=== PATIENT | female | born 1940 | race Caucasian/White ===

== ENCOUNTER 2016-07-09 13:33 | Observation (INO) | payer MEDICARE, OTHER ==
--- NOTE | 2016-07-09 14:09 | ERNOTE ---
Dyspnea - Date Date of Service: 07/09/16 - General Presenting Symptoms: shortness of breath Time Seen by Provider: 07/09/16 14:03 Source: patient, RN notes reviewed, old records Exam Limitations: no limitations - Immun/Allergies/Home Medications Immunizations: IMMUNIZATION HX Immunizations Up to Date No History of Influenza Vaccine Yes Hx Pneumococcal Vaccination Yes Allergies/Adverse Reactions: Allergies Penicillins Allergy (Intermediate, Verified 03/04/16 11:37) HIVES, THROAT SWELLS ezetimibe [From Zetia] Adverse Reaction (Mild, Verified 03/04/16 11:37) FEELS TINGLY ALL OVER, SIDE PAIN glipizide [From Glucotrol] Adverse Reaction (Mild, Verified 03/04/16 11:37) HAIR FELL OUT indomethacin [From Indocin] Adverse Reaction (Mild, Verified 03/04/16 11:37) GI BLEED indomethacin sodium [From Indocin] Adverse Reaction (Mild, Verified 03/04/16 11: 37) GI BLEED Miworjm-Ukz-Omu Reductase Inhibitor Adverse Reaction (Mild, Verified 03/04/16 11 :37) MUSCLE ACHES metformin HCl [From Glucophage] Adverse Reaction (Verified 03/04/16 11:37) JUST DOESNT WORK Home Medications: HOME MEDICATIONS Atenolol [Tenormin] 25 mg PO DAILY 03/13/14 [Last Taken 07/09/16 10:00] Gemfibrozil [Lopid] 600 mg PO BID 03/13/14 [Last Taken 07/09/16 10:00] Insul NPH Hu Rec/Ins Rg Hu Rec [Novolin 70/30] 20 units SQ AC 03/13/14 [Last Taken 07/09/16 09:00] Levothyroxine Sodium [Unithroid] 125 mcg PO DAILY 03/13/14 [Last Taken 07/09/16 10:00] Potassium Chloride [Klor-Con M20] 20 meq PO DAILY 03/13/14 [Last Taken 07/08/16 17:00] Allopurinol [Zyloprim] 200 mg PO DAILY #60 tablet 12/27/14 [Last Taken 07/09/16 10:00] Blood Sugar Diagnostic, Drum [Accu-Chek Compact] 1 each MC TID 06/18/15 [Last Taken Unknown] Cholecalciferol (Vitamin D3) [Vitamin D] 800 unit PO DAILY 06/18/15 [Last Taken 07/09/16 10:00] Fluticasone Propionate [Flonase] 1 spray NS BID PRN 06/18/15 [Last Taken Unknown ] Furosemide [Lasix] 40 mg PO BID 06/18/15 [Last Taken 07/09/16 10:00] Lisinopril [Zestril] 2.5 mg PO DAILY 06/18/15 [Last Taken 07/09/16 10:00] Multivitamins [Multivitamin Dhara] 1 cap PO DAILY 06/18/15 [Last Taken 10:00] Nitroglycerin [Nitrostat] 0.4 mg SL Q5MIN PRN 06/18/15 [Last Taken Unknown] Warfarin Sodium 3 mg PO DAILY 07/09/16 [Last Taken 07/06/16 09:00] Warfarin Sodium [Coumadin] 4 mg PO DAILY 07/09/16 [Last Taken 07/09/16 10:00] - History of Present Illness Narrative: Yannick is a 75 year old female patient of Dr. Perkins who presents from home to the ED for increasing shortness of breath. She has been more dyspneic for the past 6 to 8 weeks, but this seemed significantly worse today. She reports that she has gained weight and feels like she has more swelling in her legs. She also reports that her activity tolerance has decreased as well, as she becomes very short of breath when ambulating short distances. She was seen in [facility] cardiology 2 weeks ago. At that time, she was able to maintain an SpO2 of 96% with ambulation. Today she is only 91 to 93% at rest. She does report a cough, but reports that it is mild and infrequent. She attributes this to seasonal allergies. Her weight at her cardiology appointment on 06/24/16 was 207. Today she is 219. 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 Denies: fever/chills , chest pain/discomfort, palpitations, wheezing, leg/calf pain, dizziness, lightheadedness, weakness, anxiety Prior Treatment: Reports: recently seen, treated by physician, previous episodes. Denies: currently on antibiotics Review of Systems - Review of Systems Constitutional: Present: fatigue, decreased activity level. Absent: recent illness, fever EYE: Present: no symptoms reported ENT: Present: nasal drainage. Absent: ear pain, nose congestion, sore throat Respiratory: Present: shortness of breath, orthopnea. Absent: wheezing Cardiology: Present: edema. Absent: chest pain, palpitations, claudication Gastrointestinal/Abdominal: Absent: nausea, vomiting, diarrhea, abdominal pain Genitourinary: Present: no symptoms reported Musculoskeletal: Present: no symptoms reported Skin: Absent: rash, lesions, change in color Neurological: Absent: headache, dizziness/light-headedness Endocrine: Present: unexplained weight gain Hematologic/Lymphatic: Present: easy bruising, easy bleeding Psych: Present: no symptoms reported - Patient's Past Medical History Patient History - Medical: Arthritis, Cataracts, Diabetes Type 2 Insulin Dependent, GERD, Hypothyroidism, UTI'S Patient History - Cardiac/Respiratory: Atrial Fibrillation, Bronchitis, Cardiomyopathy, CHF - Systolic, Hypertension, Myocardial Infarction, Pneumonia Patient History - Cancer: No Hx of Cancer Patient History - Surgical Procedures: Cataracts, Cholecystectomy, Hysterectomy , Pacemaker - with defib, Other - AV node ablation Patient History - Other: None LMP (females 10-50): Menopausal - Family History Mother Family History - Medical: No pertinent hx Family History - Cardiac/Respiratory: Hypertension Family History - Cancer: No pertinent family hx - Social History Living Situations: spouse Abuse History: No History of abuse Psych History: No pertinent hx Smoking Status: Former smoker Have you smoked in the past 12 months: No Do you dip or chew tobacco: No Alcohol Use: none Drug Use: none - Immunizations Immunizations Up to Date: No Hx Pneumococcal Vaccination: Yes History of Influenza Vaccine: Yes Physical Exam - Physical Exam General Appearance: Present: alert, mild distress, obese Eye Exam: Normal inspection: bilateral Ears, Nose, Throat: Present: normal ENT inspection, normal pharynx. Absent: nasal congestion, sinus pain/drainage, pharyngeal erythema Neck: Present: normal inspection, nontender, supple Respiratory: Present: accessory muscle use, decreased breath sounds, other - difficulty speaking in complete sentences . Absent: crackles, rales, wheezing Cardiovascular/Chest: Present: regular rate, rhythm, no murmur, normal peripheral pulses Peripheral Pulses: N=norm/S=strong/W=weak/B=bound/A=absent: Dorsalis-pedis (R): Normal, Dorsalis-pedis (L): Normal Gastrointestinal/Abdominal: Present: nontender, soft Extremity Exam: Present: non-tender, normal range of motion, pedal edema Neurological Exam: Present: alert, oriented, normal mood/affect, no motor/ sensory deficits Skin Exam: Present: warm/dry, pallor ED Progress - Results and Orders Patient's Lab Results:: I have reviewed the patient's lab results. - Vital Signs Patient's Vital Signs:: I have reviewed the patient's vital signs. Vital Signs: Vital Signs 07/09/16 13:35 Temperature 35.8 C L Pulse Rate 83 Respiratory 22 H Rate Blood Pressure 137/89 O2 Sat by Pulse 97 Oximetry - EKG EKG: other - Paced rhythm EKG read: Reviewed by me - X-Ray X-Ray #1 X-Ray: chest Interpretation: Reviewed by me X-ray Comments: Technique: PA and lateral views. Comparison: 03/04/2016 Findings: There is chronic cardiomegaly. There is a left cardiac pacemaker. Vascularity is within normal limits. There are no focal infiltrates or effusions. There are granulomatous and atherosclerotic calcifications. Compression fracture in the thoracic spine is unchanged. There are mild degenerative changes. IMPRESSION: STABLE CHEST. CHRONIC CARDIOMEGALY. GRANULOMATOUS DISEASE. NO ACUTE CARDIOPULMONARY DISEASE OTHERWISE IDENTIFIED. Electronically signed by Alfa Jacobsen M.D.. - Progress/Reassessment Chief Complaint: Dyspnea Progress:: Unchanged Progress Note-Subjective: 07/09/16 15:34 Patient's CHF appears to be worsening given her 12 pound weight gain in the past 2 weeks and worsening dyspnea. Her BNP was 1929 on 05/12/16. Today she is at 4104. Her SpO2 has been mostly in the low 90's on room air. She desaturated to 86% after ambulation. Her renal function has also worsened. Her creatinine was 1.47 on 06/30 and is 1.96 today. Her chest xray is stable. Dr. Guadalupe contacted regarding admission. Plan - Plan Plan: Spoke with Dr. Guadalupe - will admit to [facility] status for diuresis and monitoring. Departure Clinical Impression: Acute on chronic systolic (congestive) heart failure, Acute on chronic renal failure - Departure Disposition: [facility] Condition: Fair
--- OUTSIDE RECORDS SUMMARY | 2016-07-09 14:14 | XMS REPORT | Continuity of Care Document ---
:1940 Author Organization [facility] ([facility]) Address [address] [place] [address] Phone [phone] Care Team Providers Name Role Phone Ericka Perkins Primary Care Provider [phone] Source Comments This disclosure is being made pursuant to the Care Everywhere program, applicable federal and state laws, and may not contain all informaitonavailable regarding this patient.[facility] ([facility]) Active Allergies and Adverse Reactions Allergen Noted Date Severity Reactions Comments Indomethacin 10/16/2014 Gastrointestinal bleed Penicillin G Urticaria (Hives) Ranitidine Hcl 04/29/2016 Pruritus Current Medications Prescription Sig. Disp. Refills Start End Status Date Date furosemide (LASIX) Take 40 mg by Active 80 mg tablet mouth 2 times 1 daily. take 1 Tablet (40MG) by oral route every day gemfibrozil (LOPID) take 1 tablet Active 600 mg tablet (600MG) by ORAL 9 route every day 30 minutes before morning and evening meal levothyroxine 175 175 mcg. take 1 Active mcg tablet tablet (175MCG) 0 by ORAL route every day potassium chloride take 1 tablet Active 20 mEq tablet (20MEQ) by ORAL 9 route every day with food warfarin (COUMADIN) as directed by Active 1 mg tablet Gregorio 2 insulin aspart mix Inject 20 Units Active (NovoLOG 70-30) 100 subcutaneously 2 unit/mL injection times daily with vial meals. multivitamin tablet Take 1 tablet by Active mouth daily. acetaminophen 650 mg Take 1,300 mg by Active CR tablet mouth daily. DEXTRAN Instill onto both Active 70/HYPROMELLOSE eyes as needed. (ARTIFICIAL TEARS (PF) OPHTH) TETRAHYDROZOLINE Instill onto both Active HCL/ZN SULF (EYE eyes as needed. DROPS ALLERGY RELIEF OPHTH) naphazoline-pheniram Instill 1 Drop Active ine (OPCON-A) onto both eyes as 0.38982-2.315 % needed. ophthalmic solution allopurinol 100 mg Take 200 mg by Active tablet mouth daily. cholecalciferol Take 2,000 Units Active (VITAMIN D3) 1,000 by mouth daily. unit capsule carvedilol 3.125 mg Take 1 tablet 60 tablet 11 Active tablet (3.125 mg total) 7 by mouth 2 times daily with meals. This Coreg replaces her Atenolol. sacubitril-valsartan Take 1 tablet by 60 tablet 4 Active (ENTRESTO) 24-26 mg mouth 2 times 7 per tablet daily. lisinopril 2.5 mg Take 1 tablet (2.5 30 tablet 5 Discontinued tablet mg total) by mouth 5 017 daily Active Problems Problem Noted Date Cardiomyopathy 10/16/2014 Chronic atrial fibrillation 10/16/2014 Coronary artery disease 10/16/2014 Diabetes 10/16/2014 GI bleed 10/16/2014 Overview: While taking Indocin. Gout 10/16/2014 Hypertension 10/16/2014 Myocardial infarction 10/16/2014 Polymyalgia rheumatica 10/16/2014 Shingles 10/16/2014 Congestive heart failure, unspecified 10/16/2014 Complete AV block, secondary to AV node ablation 10/16/2014 ICD (implantable cardioverter-defibrillator), biventricular, in situ, 2013 Medtronic, placed 05/22/15 Thyrotoxicosis without mention of goiter or other cause, without mention 07/15 of thyrotoxic crisis or storm Most Recent Encounters Date Type Specialty Providers Description 07/08/2016 Telephone Heart and Vascular Freda Oliva, Chief Comp: Shortness ELEMENTARY SCHOOL DIRECTOR of Breath 07/07/2016 Refill Heart and Vascular Bozena Vazquez, Chief Comp: Medication Problem 06/30/2016 Telephone Heart and Vascular Radha Stewart, Chief Comp: editing internship Problem 06/25/2016 Telephone Donna Florence, Chief Comp: Intake [facility] 06/25/2016 Telephone Heart and Vascular Karena Greco, Chief Comp: [facility] Medication Question 06/25/2016 Pharmacy Visit 06/24/2016 Office Visit Heart and Vascular Bozena Vazquez, Dx: Systolic heart MD failure, unspecified heart failure chronicity 06/24/2016 Telephone Gracy Hightower Chief Comp: Wilbert Gomez CPhT Prior Authorization 06/19/2016 Telephone Heart and Vascular Margaret Rogers, Chief Comp: RN Coordination Of Care 04/29/2016 Office Visit Heart and Vascular Bozena Vazquez, Dx: Congestive heart MD failure, unspecified 04/21/2016 Orders/Notes Heart and Vascular Bozena Vazquez, Dx: Systolic heart MD failure, unspecified heart failure chronicity (Primary Dx) 04/15/2016 Office Visit Ophthalmology - Dilan Akhtar, Dx: Ptosis, Specialty MD mechanical, bilateral (Primary Dx) Immunizations Name Dates Previously Given Next Due Influenza, unspecified 12/23/2006 Social History Tobacco Use Types Packs/Day Years Used Date Former Smoker Cigarettes 1 25 Quit: 03/16/1983 Smokeless Tobacco: Never Used Alcohol Use Drinks/Week oz/Week Comments No 0 Standard drinks or equivalent 0.0 Last Filed Vital Signs Vital Sign Reading Time Taken Blood Pressure 124/70 06/24/2016 12:51 PM CDT Pulse 95 06/24/2016 12:51 PM CDT Temperature 36.2 C (97.2 F) 04/29/2016 1:36 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 Respiratory Rate 24 06/24/2016 12:51 PM CDT Height 1.753 m (5' 9.02") 04/29/2016 1:36 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 Weight 94.167 kg (207 lb 9.6 oz) 06/24/2016 12:48 PM CDT Body Mass Index 30.64 06/24/2016 12:48 PM CDT Oxygen Saturation 98% 06/24/2016 12:51 PM CDT Plan of Care Date Type Specialty Providers Description 08/26/2016 Appointment Heart and Vascular Bozena Vazquez MD Chief Comp: Patient [address] [place] [address] Visit [phone] (Fax) 09/03/2016 Appointment Heart and Vascular rFeda Oliva ARNP Chief Comp: Patient [address] [place] [address] Visit [phone] (Fax) Health Maintenance Due Date Last Done Comments Hepatitis B Vaccine (1 of 3 - Primary Series) 1940 Tdap Vaccine 12/04/1951 DIABETIC: Cholesterol 1958 Diabetic: Hdl 1958 DIABETIC: Hemoglobin A1C 1958 Diabetic: Ldl 1958 DIABETIC: Microalbumin 1958 DIABETIC: Triglycerides 1958 Td Vaccine 1958 Mammogram 1980 Colonoscopy 1990 Zoster Vaccine 2000 Osteoporosis Screening (DXA Bone Density) 2005 Pneumococcal Vaccine (1 of 2 - PCV13) 2005 DIABETIC: Foot Exam 10/16/2014 DIABETIC: Retinal Eye Exam 10/16/2014 Influenza Vaccine: Seasonal (Season Ended) 2016 12/23/2006 Results from Last 3 Months Not on file
[2016-07-09 14:24] LABS: Hematocrit 48.6 % (37.0-47.0); Hemoglobin 16.3 gm/dL (12.5-16.0); Mean Cell Volume 100.6 fl (78-100); Mean Corpuscular Hemoglobin 33.7 pg (27-31); Mean Corpuscular Hgb Conc 33.5 g/dl (32-36); Mean Platelet Volume 10.4 fl (6.0-9.5); Neutrophil # 6.4 K/mm3 (1.3-6.0); Neutrophil % 78.1 % (42-75.0); Platelet Count 220 K/mm3 (150-450); Red Blood Count 4.83 M/mm3 (4.2-5.4); Red Cell Distribution Width 14.8 % (11.5-14.0); White Blood Count 8.2 K/mm3 (4.0-10.5)
[2016-07-09 14:33] LABS: Prothrombin Time (Patient) 37.3 Seconds (9.4-11.4)
[2016-07-09 14:34] LABS: INR 3.59 INR (0.90-1.10)
[2016-07-09 14:41] LABS: Troponin I Less than 0.017 ng/ml (0.00-0.10)
[2016-07-09 14:45] LABS: ALT 22 U/L (19-67); AST 22 U/L (0-48); Alkaline Phosphatase * 163 U/L (50-170); Anion Gap 10.3 mmol/L (6.8-13.8); BNP * 4104 pg/mL (5-550); BUN/Creatinine Ratio 30.1 (9.0-21.6); Bilirubin, Total 0.7 mg/dL (0.0-1.1); Blood Urea Nitrogen 59 mg/dL (3-23); Ca. Corrected For Albumin 10.1 mg/dL (8.4-10.2); Calcium * 9.6 mg/dL (7.9-10.9); Carbon Dioxide 34.1 mmol/L (24-32.6); Chloride 102 mmol/L (97-106); Glucose * 194 mg/dL (70-110); Potassium 4.4 mmol/L (3.4-4.6); Sodium 142 mmol/L (132-142)
--- OUTSIDE RECORDS SUMMARY | 2016-07-09 15:57 | XMS REPORT | Continuity of Care Document ---
:1940 Author Organization [facility] ([facility]) Address [address] [place] [address] Phone [phone] Care Team Providers Name Role Phone Ericka Perkins Primary Care Provider [phone] Source Comments This disclosure is being made pursuant to the Care Everywhere program, applicable federal and state laws, and may not contain all informaitonavailable regarding this patient.[facility] ([facility]) Active Allergies and Adverse Reactions Allergen Noted [...] Active ine (OPCON-A) onto both eyes as 0.75971-3.315 % needed. 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 Respiratory Rate 24 06/24/2016 12:51 PM CDT Height 1.753 m (5' 9.02") 04/29/2016 1:36 PM NETWORK SECURITY ARCHITECT Weight 94.167 kg (207 lb 9.6 oz) 06/24/2016 12:48 PM CDT Body Mass Index 30.64 06/24/2016 12:48 PM CDT Oxygen Saturation 98% 06/24/2016 12:51 PM CDT Plan of Care Date Type Specialty Providers Description 08/26/2016 Appointment Heart and Vascular Bozena Vazquez MD Chief Comp: Patient [address] [place] [address] Visit [phone] (Fax) 09/03/2016 Appointment Heart and Vascular Freda Oliva ARNP Chief Comp: Patient [address] [place] [address] Visit [phone] (Fax) Health Maintenance Due Date Last Done [...]
[2016-07-09] MEDS: INSUL NPH HU REC/INS RG HU REC 100 UNITS/ML VIAL SC SCH (17:54)
[2016-07-09] MEDS: BUMETANIDE 0.25 MG/ML VIAL IV SCH (17:55)
--- NOTE | 2016-07-09 17:57 | HP ---
Chief Complaint - Chief Complaint Date of Service: 07/09/16 Time of Service: 17:56 Chief Complaint: Shortness of breath, weight gain, edema History of Present Illness: Yannick is a 75 yo female with 12lb weight game in the last 2 weeks, shortness of breath, and lower extremity edema. She denies any recent change in diet, activity, or medications. She saw her insurance consultant 2 weeks ago. She presented to the ER today which evaluation revealed elevated BNP from baseline and pulmonary congestion. - Patient's Past Medical History Patient History - Medical: Arthritis, Cataracts, Diabetes Type 2 Insulin Dependent, GERD, Hypothyroidism, UTI'S Patient History - Cardiac/Respiratory: Atrial Fibrillation, Bronchitis, Cardiomyopathy, CHF, Hypertension, Myocardial Infarction, Pneumonia Patient History - Cancer: No Hx of Cancer Patient History - Surgical Procedures: Cataracts, Cholecystectomy, Hysterectomy , Pacemaker, Other Patient History - Other: None LMP (females 10-50): Menopausal - Family History Mother Family History - Medical: No pertinent hx Family History - Cardiac/Respiratory: Hypertension Family History - Cancer: No pertinent family hx - Social History Living Situations: spouse Abuse History: No History of abuse Psych History: No pertinent hx Smoking Status: Former smoker Have you smoked in the past 12 months: No Do you dip or chew tobacco: No Alcohol Use: none Drug Use: none - Immunizations Immunizations Up to Date: No Hx Pneumococcal Vaccination: Yes History of Influenza Vaccine: Yes Review Of Systems (GEN) - Review of Systems Generalized/Overall Review: Present: Weakness. Absent: Chills, Fever EENTM: Present: No Symptoms Reported Respiratory: Present: Cough, Shortness of Breath Cardiac: Present: Edema Abdominal: Present: No Symptoms Reported Genitourinary: Present: No Symptoms Reported Musculoskeletal: Present: No Symptoms Reported Neurological: Present: No Symptoms Reported Skin: Present: No Symptoms Reported Endocrine: Present: No Symptoms Reported Immunizations: IMMUNIZATION HX Immunizations Up to Date No History of Influenza Vaccine Yes Hx Pneumococcal Vaccination Yes Allergies/Adverse Reactions: Allergies Allergy/AdvReac Type Severity Reaction Status Date / Time Penicillins Allergy Intermediate HIVES, Verified 03/04/16 11:37 THROAT SWELLS ezetimibe [From Zetia] AdvReac Mild FEELS Verified 03/04/16 11:37 TINGLY ALL OVER, SIDE PAIN glipizide [From Glucotrol] AdvReac Mild HAIR FELL Verified 03/04/16 11:37 OUT indomethacin [From Indocin] AdvReac Mild GI BLEED Verified 03/04/16 11:37 indomethacin sodium AdvReac Mild GI BLEED Verified 03/04/16 11:37 [From Indocin] Ivrtwom-Nmz-Fjg Reductase AdvReac Mild MUSCLE Verified 03/04/16 11:37 Inhibitor ACHES metformin HCl AdvReac JUST Verified 03/04/16 11:37 [From Glucophage] DOESNT WORK Home Medications: HOME MEDICATIONS Atenolol [Tenormin] 25 mg PO DAILY 03/13/14 [Last Taken 07/09/16 10:00] Gemfibrozil [Lopid] 600 mg PO BID 03/13/14 [Last Taken 07/09/16 10:00] Insul NPH Hu Rec/Ins Rg Hu Rec [Novolin 70/30] 20 units SQ AC 03/13/14 [Last Taken 07/09/16 09:00] Levothyroxine Sodium [Unithroid] 125 mcg PO DAILY 03/13/14 [Last Taken 07/09/16 10:00] Potassium Chloride [Klor-Con M20] 20 meq PO DAILY 03/13/14 [Last Taken 07/08/16 17:00] Allopurinol [Zyloprim] 200 mg PO DAILY #60 tablet 12/27/14 [Last Taken 07/09/16 10:00] Blood Sugar Diagnostic, Drum [Accu-Chek Compact] 1 each MC TID 06/18/15 [Last Taken Unknown] Cholecalciferol (Vitamin D3) [Vitamin D3] 800 unit PO DAILY 06/18/15 [Last Taken 07/09/16 10:00] Fluticasone Propionate [Flonase] 1 spray NS BID PRN 06/18/15 [Last Taken Unknown ] Lisinopril [Zestril] 2.5 mg PO DAILY 06/18/15 [Last Taken 07/09/16 10:00] Multivitamins [Multivitamin Dhara] 1 cap PO DAILY 06/18/15 [Last Taken 10:00] Nitroglycerin [Nitrostat] 0.4 mg SL Q5MIN PRN 06/18/15 [Last Taken Unknown] Warfarin Sodium 3 mg PO DAILY 07/09/16 [Last Taken 07/06/16 09:00] Warfarin Sodium [Coumadin] 4 mg PO DAILY 07/09/16 [Last Taken 07/09/16 10:00] Bumetanide 1 mg PO BID #60 tablet 07/10/16 [Last Taken Unknown] Exam - Exam Vital Signs: Vital Signs - Last Taken Temp 36.4 C L 07/09/16 16:07 Pulse 83 07/09/16 16:07 Resp 20 07/09/16 16:07 BP 125/95 07/09/16 16:07 Pulse Ox 100 07/09/16 15:56 Constitutional: Present: Alert, Oriented x3, Cooperative ENT Exam: Present: hearing grossly normal Eye Exam: bilateral eye: normal inspection Respiratory: Present: lungs clear, normal breath sounds Cardiovascular/Chest: Present: regular rate, rhythm, no murmur, edema - 2+ Abdomen: Present: Normal bowel sounds, soft, nontender, nondistended Skin Exam: Present: normal color, warm/dry, no cyanosis Diagnostic Studies: Laboratory Results WBC 8.2 K/mm3 (4.0-10.5) 07/09/16 14:15 RBC 4.83 M/mm3 (4.2-5.4) 07/09/16 14:15 Hgb 16.3 gm/dL (12.5-16.0) H 07/09/16 14:15 Hct 48.6 % (37.0-47.0) H 07/09/16 14:15 MCV 100.6 fl (78-100) H 07/09/16 14:15 MCH 33.7 pg (27-31) H 07/09/16 14:15 MCHC 33.5 g/dl (32-36) 07/09/16 14:15 RDW 14.8 % (11.5-14.0) H 07/09/16 14:15 Plt Count 220 K/mm3 (150-450) 07/09/16 14:15 MPV 10.4 fl (6.0-9.5) H 07/09/16 14:15 Immature Gran % (Auto) 0.50 % (0.001-0.429) H 07/09/16 14:15 Immature Gran # (Auto) 0.04 K/mm3 (0.000-0.0310) H 07/09/16 14:15 Neutrophils % 78.1 % (42-75.0) H 07/09/16 14:15 Lymphocytes % 7.9 % (20-51) L 07/09/16 14:15 Monocytes % 10.8 % (0.0-9) H 07/09/16 14:15 Eosinophils % 2.1 % (0.0-3.0) 07/09/16 14:15 Basophils % 0.6 % (0.0-1.0) 07/09/16 14:15 Nucleated RBC % 0.0 k/mm3 (0-1) 07/09/16 14:15 Neutrophils # 6.4 K/mm3 (1.3-6.0) H 07/09/16 14:15 Lymphocytes # 0.7 k/mm3 (1.5-3.5) L 07/09/16 14:15 Monocytes # 0.9 k/mm3 (0.0-1.0) 07/09/16 14:15 Eosinophils # 0.2 k/mm3 (0.0-0.7) 07/09/16 14:15 Absolute Basophils 0.1 k/mm3 (0.0-0.1) 07/09/16 14:15 PT 37.3 Seconds (9.4-11.4) H 07/09/16 14:15 INR (Anticoag Therapy) 3.59 INR (0.90-1.10) H 07/09/16 14:15 Sodium 142 mmol/L (132-142) 07/09/16 14:15 Plasma Sodium 144 mmol/L (130-142) H 07/09/16 14:15 Potassium 4.4 mmol/L (3.4-4.6) 07/09/16 14:15 Chloride 102 mmol/L (97-106) 07/09/16 14:15 Carbon Dioxide 34.1 mmol/L (24-32.6) H 07/09/16 14:15 Anion Gap 10.3 mmol/L (6.8-13.8) 07/09/16 14:15 BUN 59 mg/dL (3-23) H D 07/09/16 14:15 Creatinine 1.96 mg/dL (0.4-1.4) H D 07/09/16 14:15 Est GFR (Non-Af Amer) 26 mL/min (60-130) L D 07/09/16 14:15 BUN/Creatinine Ratio 30.1 (9.0-21.6) H 07/09/16 14:15 Random Glucose 194 mg/dL (70-110) H 07/09/16 14:15 Calcium 9.6 mg/dL (7.9-10.9) 07/09/16 14:15 Calcium Adj for Albumin 10.1 mg/dL (8.4-10.2) 07/09/16 14:15 Total Bilirubin 0.7 mg/dL (0.0-1.1) 07/09/16 14:15 AST 22 U/L (0-48) 07/09/16 14:15 ALT 22 U/L (19-67) 07/09/16 14:15 Alkaline Phosphatase 163 U/L (50-170) 07/09/16 14:15 Troponin I Less than 0.017 ng/ml (0.00-0.10) 07/09/16 14:15 B-Natriuretic Peptide 4104 pg/mL (5-550) H 07/09/16 14:15 Total Protein 7.0 gm/dL (6.2-8.2) 07/09/16 14:15 Albumin 3.0 gm/dl (3.4-5.0) L 07/09/16 14:15 Assessment/Plan - Assessment/Plan (1) Acute on chronic systolic (congestive) heart failure Assessment: Yannick is a 75 yo female with acute on chronic systolic CHF based on 12lb weight gain, edema, and shortness of breath. She has no acute respiratory failure. Therefore will admit to observation, suspect 1 midnight stay for diuresis with IV lasix. Will plan to discharge to home tomorrow. Problem: Acute
[2016-07-09] MEDS: GEMFIBROZIL 600 MG TABLET PO SCH (20:40)
[2016-07-10 06:32] LABS: Prothrombin Time (Patient) 41.5 Seconds (9.4-11.4)
[2016-07-10 06:38] LABS: INR 3.99 INR (0.90-1.10)
[2016-07-10 06:42] LABS: Anion Gap 15.4 mmol/L (6.8-13.8); BUN/Creatinine Ratio 34.7 (9.0-21.6); Calcium * 9.5 mg/dL (7.9-10.9); Carbon Dioxide 25.2 mmol/L (24-32.6); Estimated Creat Clear 29.9; Potassium 3.6 mmol/L (3.4-4.6)
[2016-07-10] MEDS ORDERED: LEVOTHYROXINE SODIUM 125 MCG TABLET PO SCH (07:00)
[2016-07-10] MEDS: INSUL NPH HU REC/INS RG HU REC 100 UNITS/ML VIAL SC SCH ×2 (07:00→11:36)
[2016-07-10] MEDS: BUMETANIDE 0.25 MG/ML VIAL IV SCH (08:59)
[2016-07-10] MEDS: GEMFIBROZIL 600 MG TABLET PO SCH (08:59)
[2016-07-10] MEDS ORDERED: POTASSIUM CHLORIDE 20 MEQ TABLET.SA PO SCH (09:00)
[2016-07-10] MEDS ORDERED: MULTIVITAMINS 1 CAP CAPSULE PO SCH (09:00)
[2016-07-10] MEDS ORDERED: ALLOPURINOL 100 MG TABLET PO SCH (09:00)
[2016-07-10] MEDS ORDERED: LISINOPRIL 2.5 MG TABLET PO SCH (09:00)
[2016-07-10] MEDS ORDERED: ATENOLOL 25 MG TABLET PO SCH (09:00)
[2016-07-10] MEDS ORDERED: BUMETANIDE 0.25 MG/ML VIAL IV SCH (09:30)
[2016-07-10 11:10] VITALS: BP 148/74
[2016-07-10] MEDS ORDERED: BUMETANIDE 0.25 MG/ML VIAL IV ONE (12:49)
[2016-07-10] MEDS ORDERED: CALCIUM CARBONATE 500 MG TAB.CHEW PO PRN (15:19)
--- NOTE | 2016-07-10 16:26 | DS ---
(1) Acute on chronic systolic (congestive) heart failure Diagnosis(s): Yannick was admitted with acute on chronic systolic CHF. She was diuresed with IV lasix and had good diuresis with improved edema and shortness of breath and weight loss. She was feeling better and was discharged to home. Problem: Acute (2) Stage III chronic kidney disease Problem: Acute Procedures Performed: none Discharge Disposition: Home self care Disposition: Home self-care Condition: Good Discharge Activity: Activity as tolerated Discharge Diet: Low salt Referrals: Ericka Perkins MD [Primary Care Provider] - One Week (Repeat BMP (recheck potassium and renal function after change to bumex)) Magali Nelson [Pharmacy] - 07/16/16 10:00 am ([facility]) Additional Patient Instructions (free text): No coumadin today. Restart coumadin per usually starting tomorrow (07/11/16). Follow up with Coumadin clinic next Thursday. Prescriptions (Any new or edited meds): Bumetanide 1 mg PO BID #60 tablet Complete Home Medications List: Complete Home Medication List: Atenolol [Tenormin] 25 mg PO DAILY 03/13/14 Gemfibrozil [Lopid] 600 mg PO BID 03/13/14 Insul NPH Hu Rec/Ins Rg Hu Rec [Novolin 70/30] 20 units SQ AC 03/13/14 Levothyroxine Sodium [Unithroid] 125 mcg PO DAILY 03/13/14 Potassium Chloride [Klor-Con M20] 20 meq PO DAILY 03/13/14 Allopurinol [Zyloprim] 200 mg PO DAILY #60 tablet 12/27/14 Blood Sugar Diagnostic, Drum [Accu-Chek Compact] 1 each MC TID 06/18/15 Cholecalciferol (Vitamin D3) [Vitamin D3] 800 unit PO DAILY 06/18/15 Fluticasone Propionate [Flonase] 1 spray NS BID PRN 06/18/15 Lisinopril [Zestril] 2.5 mg PO DAILY 06/18/15 Multivitamins [Multivitamin Dhara] 1 cap PO DAILY 06/18/15 Nitroglycerin [Nitrostat] 0.4 mg SL Q5MIN PRN 06/18/15 Warfarin Sodium 3 mg PO DAILY 07/09/16 Warfarin Sodium [Coumadin] 4 mg PO DAILY 07/09/16 Bumetanide 1 mg PO BID #60 tablet 07/10/16
== END 2016-07-10 17:15 | disposition home or self-care (01) ==
LOC: ER 13:33 → MS 15:53
PROVIDERS: ADMIT Family Medicine; ATTEND Family Medicine
DX: I50.23 Acute on chronic systolic (congestive) heart failure (principal); I12.9 Hypertensive chronic kidney disease with stage 1 through stage 4 chronic kidney disease, or unspecified chronic kidney disease; N18.3 Chronic kidney disease, stage 3 (moderate); E11.9 Type 2 diabetes mellitus without complications; I48.2 Chronic atrial fibrillation; K21.9 Gastro-esophageal reflux disease without esophagitis; E03.9 Hypothyroidism, unspecified; M19.90 Unspecified osteoarthritis, unspecified site; Z87.891 Personal history of nicotine dependence
CPT/HCPCS: 36415; 71020; 80048; 80053; 83880; 84484; 85025; 85610; 93005; 96372; 96374; 99284; G0378

== ENCOUNTER 2016-08-20 14:54 | Emergency (ER) | payer MEDICARE, OTHER ==
--- OUTSIDE RECORDS SUMMARY | 2016-08-20 15:27 | XMS REPORT | Continuity of Care Document ---
:1940 Author Organization [facility] ([facility]) Address [address] [place] [address] Phone [phone] Care Team Providers Name Role Phone Ericka Perkins Primary Care Provider [phone] Source Comments This disclosure is being made pursuant to the Care Everywhere program, applicable federal and state laws, and may not contain all informaitonavailable regarding this patient.[facility] ([facility]) Active Allergies and Adverse Reactions Allergen Noted Date Severity Reactions Comments Indomethacin 10/16/2014 Gastrointestinal bleed Penicillin G Urticaria (Hives) Ranitidine Hcl 04/29/2016 Pruritus Current Medications Prescription Sig. Disp. Refills Start End Status Date Date furosemide (LASIX) Take 40 mg by Active 80 mg tablet mouth 2 times 1 daily. gemfibrozil (LOPID) take 1 tablet Active 600 mg tablet (600MG) by ORAL 9 route every day 30 minutes before morning and evening meal potassium chloride take 1 tablet Active 20 mEq tablet (20MEQ) by ORAL 9 route every day with food multivitamin tablet Take 1 tablet by Active mouth daily. acetaminophen 650 mg Take 1,300 mg by Active CR tablet mouth daily. DEXTRAN Instill onto both Active 70/HYPROMELLOSE eyes as needed. (ARTIFICIAL TEARS (PF) OPHTH) allopurinol 100 mg Take 200 mg by Active tablet mouth daily. cholecalciferol Take 2,000 Units Active (VITAMIN D3) 1,000 by mouth daily. unit capsule ALPRAZolam 0.25 mg Take 0.25 mg by 0 Active tablet mouth every 8 7 hours as needed. Taking at bedtime levothyroxine 125 Take 125 mcg by 1 Active mcg tablet mouth daily. 7 omeprazole 40 mg Take 40 mg by 5 Active enteric coated mouth daily. 7 capsule warfarin 3 mg tablet Take 3 mg by Active mouth. Sundays warfarin 4 mg tablet Take 4 mg by Active mouth. Thu-Thu metoPROLol succinate Take 1 tablet (50 30 tablet Active 50 mg XL tablet mg total) by mouth 7 daily. hydrALAZINE 10 mg Take 1 tablet (10 90 tablet Active tablet mg total) by mouth 7 every 8 hours. insulin aspart mix 30 units before 10 mL 0 Active (NovoLOG MIX 70-30) breakfast and 15 7 100 unit/mL units before injection vial supper. levothyroxine 175 175 mcg. take 1 Discontinued mcg tablet tablet (175MCG) 0 017 by ORAL route every day warfarin (COUMADIN) as directed by Discontinued 1 mg tablet Gregorio 2 017 insulin aspart mix Inject 20 Units Discontinued (NovoLOG 70-30) 100 subcutaneously 2 017 unit/mL injection times daily with vial meals. TETRAHYDROZOLINE Instill onto both Discontinued HCL/ZN SULF (EYE eyes as needed. 017 DROPS ALLERGY RELIEF OPHTH) naphazoline-pheniram Instill 1 Drop Discontinued ine (OPCON-A) onto both eyes as 017 0.09238-2.315 % needed. ophthalmic solution carvedilol 3.125 mg Take 1 tablet 60 tablet Discontinued tablet (3.125 mg total) 7 017 by mouth 2 times daily with meals. This Coreg replaces her Atenolol. atenolol 25 mg Take 25 mg by 3 Discontinued tablet mouth daily. 7 017 NOVOLIN 70/30 100 Inject 20 Units 1 Discontinued unit/mL injection subcutaneously 3 7 017 vial times daily. lisinopril 2.5 mg Take 2.5 mg by Discontinued tablet mouth daily. 017 magnesium oxide 400 Take 1 tablet (400 30 tablet Discontinued mg tablet mg total) by mouth 7 017 2 times daily. insulin aspart mix 30 units before 3 mL 1 Discontinued (NovoLOG Mix 70-30 breakfast and 15 7 017 FlexPen) 100 unit/mL units before injection pen supper. Active Problems Problem Noted Date Non-ischemic cardiomyopathy 10/16/2014 Chronic atrial fibrillation 10/16/2014 Coronary artery disease 10/16/2014 Uncontrolled type 2 diabetes mellitus with hyperglycemia 10/16/2014 GI bleed 10/16/2014 Overview: While taking Indocin. 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 other cause, without mention 07/15 of thyrotoxic crisis or storm Resolved Problems Problem Noted Date Resolved Date Acute on chronic systolic heart failure, NYHA class 3 07/29/2016 08/10/2016 Most Recent Encounters Date Type Specialty Providers Description 08/14/2016 Orders/Notes Med Hematology and Cydney, Dx: Erythrocytosis Oncology Imani Wallace DO (Primary Dx) 08/12/2016 Nurse Triage General Care Chief Vandana Comp: IP Inpatient - Adult Carmelina Shay RN Discharge Follow-up Call 08/12/2016 Telephone Heart and Vascular Xiomara Verma, Chief Comp: Follow -up RN 08/10/2016 Pharmacy Visit 07/30/2016 [facility] Marino Gomez, Chief Comp: Patient Encounter MD Reported Reason For Visit 07/29/2016 - [facility] General Care Gwen Denny MD Dx: SOB (shortness of 08/10/2016 Encounter Inpatient - Adult Priest, Maxx breath) (Primary Dx ) MD Darrel Flores Manju, MD Soufi, MD Ruby Joseph Parijat, MD Fatima, Urooj, MD 07/28/2016 Telephone Heart and Vascular Freda Oliva, Chief Comp: Shortness BATCH ATTENDANT of Breath 07/21/2016 Pharmacy Visit 07/08/2016 Telephone Heart and Vascular Freda Oliva, Chief Comp: Shortness BATCH ATTENDANT of Breath 07/07/2016 Refill Heart and Vascular Bozena Vazquez, Chief Comp: Medication Problem 06/30/2016 Telephone Heart and Vascular Radha Stewart, Chief Comp: assistant 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 Problem 06/25/2016 Telephone Donna Florence, Chief Comp: Intake [facility] 06/25/2016 Telephone Heart and Vascular Karena Greco, Chief Comp: [facility] Medication Question 06/25/2016 Pharmacy Visit 06/24/2016 Office Visit Heart and Vascular Bozena Vazquez, Dx: Systolic heart MD failure, unspecified heart failure chronicity 06/24/2016 Telephone Gracy Hightower Chief Comp: Wilbert Gomez, prosthetic assistant Prior Authorization 06/19/2016 Telephone Heart and Vascular Margaret Rogers, Chief Comp: RN Coordination Of Care Immunizations Name Dates Previously Given Next Due Influenza, unspecified 12/23/2006 Social History Tobacco Use Types Packs/Day Years Used Date Former Smoker Cigarettes 1 25 Quit: 03/16/1983 Smokeless Tobacco: Never Used Alcohol Use Drinks/Week oz/Week Comments No 0 Standard drinks or equivalent 0.0 Last Filed Vital Signs Vital Sign Reading Time Taken Blood Pressure 112/61 08/10/2016 9:11 AM CDT Pulse 75 08/09/2016 11:47 PM CDT Temperature 37.3 C (99.1 F) 08/10/2016 9:11 AM CDT Respiratory Rate 16 08/10/2016 9:11 AM CDT Height 1.753 m (5' 9") 07/29/2016 4:48 PM CDT Weight 87.8 kg (193 lb 9 oz) 08/10/2016 4:00 AM CDT Body Mass Index 28.57 08/10/2016 4:00 AM CDT Oxygen Saturation 95% 08/10/2016 9:11 AM CDT Plan of Care Date Type Specialty Providers Description 08/26/2016 Appointment Heart and Vascular Bozena Vazquez MD Chief Comp: Patient [address] [place] [address] Visit [phone] (Fax) 09/03/2016 Appointment Heart and Vascular Freda Oliva ARNP Chief Comp: Patient [address] [place] [address] Visit [phone] (Fax) 10/08/2016 Appointment Med Hematology and Tom Mace Chief Comp: Patient Oncology MD Jamil Reported Reason For [address] [place] [address] [phone] (Fax) Health Maintenance Due Date Last Done Comments Hepatitis B Vaccine (1 of 3 - Primary Series) 1940 Tdap Vaccine 12/04/1951 DIABETIC: Cholesterol 1958 Diabetic: Hdl 1958 Diabetic: Ldl 1958 DIABETIC: Microalbumin 1958 DIABETIC: Triglycerides 1958 Td Vaccine 1958 Mammogram 1980 Colonoscopy 1990 Zoster Vaccine 2000 Osteoporosis Screening (DXA Bone Density) 2005 Pneumococcal Vaccine (1 of 2 - PCV13) 2005 DIABETIC: Foot Exam 10/16/2014 DIABETIC: Retinal Eye Exam 10/16/2014 Influenza Vaccine: Seasonal (Season Ended) 2016 12/23/2006 DIABETIC: Hemoglobin A1C 01/30/2017 07/30/2016 Results from Last 3 Months BLOOD GLUCOSE, BEDSIDE (08/10/2016 10:50 AM)Only the most recent of49 resultswithin the time period is included. Component Value Range Glucose, Accu-Chek 209(H) 65-99 mg/dL Specimen Blood, capillary PT/INR (PROTHROMBIN TIME/INR) VENOUS (08/10/2016 8:49 AM)Only the most recent of14 resultswithin the time period is included. Component Value Range PT (Prothrombin Time) 25(H) 9-12 secs INR 2.5 <4.0 Specimen Blood URIC ACID (08/10/2016 6:42 AM) Component Value Range Uric Acid 10.9(H) 2.4-5.7 mg/dL Specimen Blood MAGNESIUM (08/10/2016 6:42 AM)Only the most recent of14 resultswithin the time period is included. Component Value Range Magnesium 2.4 1.5-2.9 mg/dL Specimen Blood BASIC METABOLIC PANEL W/ CALCIUM (CHEM 8) (08/10/2016 6:42 AM)Only the most recent of13 resultswithin the time period is included. Component Value Range Sodium 132(L) 135-145 mEq/L Potassium 3.4(L) 3.5-5.0 mEq/L Chloride 84(L) 95-107 mEq/L CO2 32(H) 22-29 mEq/L BUN 73(H) 10-20 mg/dL Creatinine 1.9(H)Comment: 0.5-1.0 mg/dL Creatinine switched to enzymatic method on 07/23/2010.GFR equation switched to IDMS-traceable MDRD equation on 07/23/2010. Calculated GFR values are not valid in clinical settings where serum creatinine is changing. Glucose 111(H)Comment: 65-99 mg/dL The Expert Committee on the Diagnosis and Classification of Diabetes has defined impaired fasting glucose as greater than or equal to 100 mg/dL but less than 126 mg/dL.(Diabetes Care 28 (Suppl 1)S41,2005) Calcium 9.6 8.5-10.5 mg/dL Anion Gap 16 <17 mEq/L Calculated GFR 26(L) >60 mL/min/1.73 m2 Specimen Blood CBC (COMPLETE BLOOD COUNT) (08/10/2016 6:42 AM)Only the most recent of11 resultswithin the time period is included. Component Value Range WBC Count 7.2 3.7-10.5 K/MM3 RBC Count 5.80(H) 4.00-5.20 M/MM3 Hemoglobin 19.3(H) 11.9-15.5 g/dL Hematocrit 55(HH) 35-47 % MCV (Mean Corpuscular Volume) 95 82-99 FL MCH (Mean Corpuscular Hemoglobin) 33 25-35 PG MCHC (Mean Corpuscular Hemoglobin Concentration) 35 32-36 % Platelet Count 289 150-400 K/MM3 MPV (Mean Platelet Volume) 10.8 9.4-12.3 FL RBC Dist Width-STD 49.2(H) 36.4-46.3 FL RBC Distrib Width 14.0 9.0-14.5 % Nucleated RBC 0 /100 WBC Specimen Whole Blood ERYTHROPOIETIN (08/08/2016 5:47 PM) Component Value Range Erythropoietin 11Comment: 4-27 mU/mL INTERPRETIVE INFORMATION: Erythropoietin Normal serum concentrations of erythropoietin for 95% of individuals with normal hematocrits range from 4-27 mU/mL. As the hematocrit is lowered by iron deficiency, aplastic, or hemolytic anemia, the concentration of erythropoietin increases as shown in the graph below. In the absence of anemia, elevated concentrations are seen in renal tumors, as a manifestation of renal transplant rejection, and in secondary polycythemia. Low values may be observed in hemochromatosis. Expected Erythropoietin Concentrations in Patients with Uncomplicated Anemia Erythropoietin (mU/mL) 100,000 - + + 10,000 - +....... + ....... 1,000 - +....... + ........ 100 - + ........ +........ 10 - +........ +---+---+---+---+---+---+ 10 [id number] (Hematocrit %) (Contributions To Nephrology 1988:66:54-62) Decreased erythropoietin concentrations with an elevated hematocrit are observed in patients with polycythemia rubra vera, and with a decreased hematocrit in patients with HIV infection who are receiving AZT.Patients on AZT who have anemia and erythropoietin concentrations of less than or equal to 500 mU/mL may benefit from therapy with recombinant EPO ([facility] 322:[id number],1989). Performed by [facility], [address] [place] [id number] [email or web address], Eric Torres MD, Lab. Director Specimen Blood Narrative Specimen Source: Specimen Start Date: CHEST - AP/PA (08/08/2016 9:36 AM)Only the most recent of2 resultswithin the time period is included. Impressions Impression: The portable radiograph demonstrates cardiomegaly with prominent central pulmonary vasculature without pulmonary edema. Narrative Procedure: CHEST - AP/PA Clinical Indication: Cough. Shortness of breath. Comparison: 08/04/2016 and 07/29/2016 Findings: Interval smaller lung volumes given the portable nature of the study. Stable cardiomegaly and prominence of the central pulmonary arteries and the main pulmonary artery. Left basilar atelectasis seen again. No large layering effusions. Procedure Note Mark, Incoming Imaging Results - ThuAugust 08, 2016 10:22 AM CDT Procedure: CHEST - AP/PA Clinical Indication: Cough. Shortness of breath. Comparison: 08/04/2016 and 07/29/2016 Findings: Interval smaller lung volumes given the portable nature of the study. Stable cardiomegaly and prominence of the central pulmonary arteries and the main pulmonary artery. Left basilar atelectasis seen again. No large layering effusions. IMPRESSION Impression: The portable radiograph demonstrates cardiomegaly with prominent central pulmonary vasculature without pulmonary edema. ARTERIAL BLOOD GAS (CRITICAL CARE LABORATORY) (08/07/2016 6:58 AM) Component Value Range pH, Arterial 7.57(H) 7.35-7.45 pCO2, Arterial 37 35-45 torr pO2, Arterial 59(L) 80-90 torr Base Excess, Arterial 12(H) -2-2 mEq/L Bicarbonate, Arterial 34(H) 22-26 mEq/L Total CO2, Arterial 35(H) 24-32 mEq/L Temperature, Arterial 37.0 Degrees C Specimen Whole Blood BLOOD CULTURE (08/04/2016 8:59 PM) Component Value Range Blood Culture No Growth Specimen Blood - Blood, Venipuncture BLOOD CULTURE - ADULT, CATHETER ASSOCIATED-VENIPUNCTURE (08/04/2016 8:48 PM) Only the most recent of2 resultswithin the time period is included. Component Value Range Blood Culture No Growth Specimen Blood - Blood, Venipuncture URINALYSIS (08/04/2016 8:33 PM) Component Value Range Color, Urine Straw Straw, Pale Yellow, Yellow, Clear, None Clarity, Urine Clear Clear pH, Urine 6.0 <9.0 Glucose, Urine Negative Negative Blood, Urine 1+(A) Negative Ketones, Urine Negative Negative Protein, Urine Negative Negative Urobilinogen, Urine Normal Normal Bilirubin, Urine Negative Negative Leukocyte Esterase, Urine 1+(A) Negative Nitrite, Urine Negative Negative Spec [place], Urine 1.005 1.000-1.030 Specimen Urine PTT (PARTIAL THROMBOPLASTIN TIME) (08/04/2016 6:49 AM)Only the most recent of4 resultswithin the time period is included. Component Value Range PTT 29 22-31 secs Specimen Blood THYROXINE - FREE (08/03/2016 7:12 AM)Only the most recent of2 resultswithin the time period is included. Component Value Range Free T4 (Thyroxine) 1.16 0.80-1.80 ng/dL Specimen Blood THYROID STIMULATING HORMONE (TSH), WITH REFLEX FREE T-4 (08/03/2016 7:12 AM) Component Value Range TSH, Reflex 7.78(H) 0.27-4.20 IU/mL Specimen Blood BLOOD CELL MORPHOLOGY (07/31/2016 9:02 AM)Only the most recent of3 resultswithin the time period is included. Specimen Whole Blood ECG - EKG 12 LEAD (07/30/2016 9:53 AM)Only the most recent of3 resultswithin the time period is included. Component Value Range ECG SEVERITY - ABNORMAL ECG - VENT. RATE 77 bpm RR 779 ms QRSD INTERVAL 132 ms QT INTERVAL 444 ms QTC INTERVAL 503 ms QRS AXIS -75 degrees T WAVE AXIS -3 degrees REPORT AFIB/FLUT AND V-PACED COMPLEXES [Remains] NO SIGNIFICANT CHANGE Interpreting Physician: Klaus Blanco MD ECHO ADULT - ECHOCARDIOGRAM, TRANSTHORACIC (07/30/2016 8:44 AM) Component Value Range Interpretation Summary TRANSTHORACIC ECHOCARDIOGRAM Technically marginal study. Enlarged left ventricle. Mild left ventricular hypertrophy. LV endocardial borders are poorly seen. Ultrasound contrast agent required for visualization. Severely decreased LV systolic function. No obvious LV thrombus noted. Mild aortic insufficiency by color Doppler. Mild mitral regurgitation by Doppler. Patient Height (cm) 175.3 cm Patient Weight (kg) 99.8 kg Systolic Pressure (mmHg) 127 mmHg Diastolic Pressure (mmHg) 73 mmHg BSA (meters^2) 2.2 m^2 Left Ventricle (LV) Enlarged left ventricle. No obvious LV thrombus noted. Mild left ventricular hypertrophy. LV endocardial borders are poorly seen. Ultrasound contrast agent required for visualization. Severely decreased LV systolic function. LV Ejection Fraction=< 20% (based on visual estimate). Right Ventricle (RV) There is a pacemaker lead in the right ventricle. Visualization of the RV chamber is limited due to shadowing artifact Right ventricular function cannot be assessed due to poor image quality. Left and Right Atria (LA, RA) LA chamber size: enlarged. Visualization of the RA chamber is limited Mitral Valve (MV) Mildly calcified mitral annulus Mild mitral regurgitation by Doppler. Tricuspid Valve (TV) Normal tricuspid valve morphology Trace Tricuspid regurgitation Aortic Valve (AoV) Mildly calcified aortic valve leaflets The aortic valve structure is probably trileaflet - not all coronary cusps are visualized. Mild aortic insufficiency by color Doppler. Pulmonic Valve (PV) Pulmonic valve is not visualized Aorta and Pulmonary Artery (Ao, PA) The aortic root is normal size. Pericardium/Pleura There is no pericardial effusion. Procedures Complete 2D with Doppler, Color Flow and image documentation ( [id number]) I personally viewed the echocardiogram and approve the above interpretation Inf. Vena Cava (IVC) / Pulm. Veins IVC not visualized Primary ICD-9 Code Congestive heart failure, unspecified (428.0) IVSd 1.3 cm LVIDd 6.4 cm LVIDs 5.7 cm LVPWd 1.3 cm IVS/LVPW 0.96 Low Range of LVEF 20 High Range of LVEF 20 Reason For Study Eval structure and function Daycare Manager Chandni Herrera Interpreting Physician Marino Gomez MD electronically signed on 2016-07-30 09:23:25.197 DIFFERENTIAL (07/30/2016 7:09 AM)Only the most recent of2 resultswithin the time period is included. Component Value Range % Neutrophils-Auto Diff 76.2 % Neutrophils-Auto Diff 5210 1277-1000 /MM3 % Lymphocytes-Auto Diff 8.8 % Lymphocytes-Auto Diff 600(L) 875-3300 /MM3 % Monocytes-Auto Diff 11.3 % Monocytes-Auto Diff 770 130-860 /MM3 % Eosinophils-Auto Diff 2.6 % Eosinophils-Auto Diff 180 40-390 /MM3 % Basophils 0.7 % Basophils-Auto Diff 50 10-136 /MM3 % Immature Granulocytes-Auto Diff 0.4 % Immature Granulocytes-Auto Diff 30 /MM3 Specimen Whole Blood CBC (COMPLETE BLOOD COUNT) (07/30/2016 7:09 AM)Only the most recent of2 resultswithin the time period is included. Component Value Range WBC Count 6.8 3.7-10.5 K/MM3 RBC Count 5.11 4.00-5.20 M/MM3 Hemoglobin 17.2(H) 11.9-15.5 g/dL Hematocrit 52(H) 35-47 % MCV (Mean Corpuscular Volume) 101(H) 82-99 FL MCH (Mean Corpuscular Hemoglobin) 34 25-35 PG MCHC (Mean Corpuscular Hemoglobin 33 32-36 % Concentration) Platelet Count Clumped(A)Comment:Platelets clumped on smear; appear normal by estimate. MPV (Mean Platelet Volume) 11.2 9.4-12.3 FL RBC Dist Width-STD 55.6(H) 36.4-46.3 FL RBC Distrib Width 14.8(H) 9.0-14.5 % Nucleated RBC 0 /100 WBC Specimen Whole Blood HEMOGLOBIN A1C (07/30/2016 7:09 AM) Component Value Range Hemoglobin A1c 7.5(H)Comment: 4.8-6.0 % Glycemic Control Guidelines: Non-diabetic <6% Goal <7% Therapeutic Action >8% Estimated Average Glucose 169Comment: mg/dL The estimated average glucose (eAG) calculated from the HbA1c changed on 02/11.See Laboratory Bulletins in the Department of Pathology Laboratory Services Handbook for a full discussion.Not e that the new calculated glucose will now be lower.The A1c result is unchanged. Specimen Whole Blood CHEM 7 PANEL (07/30/2016 7:09 AM) Component Value Range Sodium 141 135-145 mEq/L Chloride 98 95-107 mEq/L Potassium 3.8 3.5-5.0 mEq/L CO2 25 22-29 mEq/L BUN 45(H) 10-20 mg/dL Creatinine 1.4(H)Comment: 0.5-1.0 mg/dL Creatinine switched to enzymatic method on 07/23/2010.GFR equation switched to IDMS-traceable MDRD equation on 07/23/2010. Calculated GFR values are not valid in clinical settings where serum creatinine is changing. Glucose 256(H)Comment: 65-99 mg/dL The Expert Committee on the Diagnosis and Classification of Diabetes has defined impaired fasting glucose as greater than or equal to 100 mg/dL but less than 126 mg/dL.(Diabetes Care 28 (Suppl 1)S41,2005) Anion Gap 18(H) <17 mEq/L Calculated GFR 37(L) >60 mL/min/1.73 m2 Specimen Blood CBC WITH DIFFERENTIAL (07/30/2016 7:09 AM)Only the most recent of2 resultswithin the time period is included. Specimen Whole Blood Narrative The following orders were created for panel order CBC WITH DIFFERENTIAL. Procedure Abnormality Status --------- ------ CBC (COMPLETE BLOOD COUNT)[[id number]] AbnormalFinal result DIFFERENTIAL[[id number]] AbnormalFinal result Please view results for these tests on the individual orders. CHEST- PA& LATERAL (07/29/2016 10:24 AM) Narrative Procedure: CHEST- PA & LATERAL Clinical Indication: Worsening shortness of breath and orthopnea. Evaluate for edema versus pneumonia Technique: PA and lateral chest radiograph Comparison: None. Findings impression: Cardiomegaly is noted. Mild prominence of the pulmonary artery and prominent madyson with mild cephalization probably represent very early interstitial congestion. No jessy pulmonary edema seen. No pleural disease. No definite focal lung opacities. Mild left basilar atelectasis noted. Trachea is central. A small calcified melanoma seen in the right midlung field. Left chest wall pacemaker leads are intact without any kink or break. These are located in the right atrium, right ventricle and the coronary sinus. Procedure Note Mark, Incoming Imaging Results - Tue July 29, 2016 11:44 AM CDT Procedure: CHEST- PA & LATERAL Clinical Indication: Worsening shortness of breath and orthopnea. Evaluate for edema versus pneumonia Technique: PA and lateral chest radiograph Comparison: None. Findings impression: Cardiomegaly is noted. Mild prominence of the pulmonary artery and prominent madyson with mild cephalization probably represent very early interstitial congestion. No jessy pulmonary edema seen. No pleural disease. No definite focal lung opacities. Mild left basilar atelectasis noted. Trachea is central. A small calcified melanoma seen in the right midlung field. Left chest wall pacemaker leads are intact without any kink or break. These are located in the right atrium, right ventricle and the coronary sinus. THYROID STIMULATING HORMONE (07/29/2016 9:59 AM) Component Value Range TSH 8.36(H) 0.27-4.20 IU/mL Specimen Blood NT-PROBNP (07/29/2016 9:59 AM) Component Value Range NT-ProBNP 4190(H)Comment: 0-624 pg/mL Reference ranges in adults reflect 95th percentiles for NT-pro-BNP levels in patients without congestive heart failure (CHF). Pediatric reference ranges for patients 18 years and younger are from Missael et al. Pediatr Cardiol 30:3-8, 2008. Age Reference Range (pg/mL) Pediatric (boys and girls): 0-30 days:263 - 6500 1 month-11 months: 37 - 1000 12 months-35 months: 39 -675 3 years to 6 years:23 -327 7 years to 14 years: 10 -242 15 years to 18 years: 6 -207 Adult Males: 19-44 years: 0 -93 45-54 years: 0 - 138 55-64 years: 0 - 177 65-74 years: 0 - 229 75 years or older: 0 - 852 Adult Females: 19-44 years: 0 - 178 45-54 years: 0 - 192 55-64 years: 0 - 226 65-74 years: 0 - 353 75 years or older: 0 - 624 For adult chronic CHF patients according to [place] [employer] (NYHA) Functional Class for NT-proBNP levels in pg/mL: [id number] Mean percentile percentile Class I: [id number] Class II:[id number] Class III: [id number] Class IV:[id number] Among patients with dyspnea, NT-proBNP is highly sensitive for the detection of acute CHF. In addition, a NT-proBNP < 300 pg/mL effectively rules out acute CHF, with 99% negative predictive value. Elevations in NT-proBNP levels may be observed in states other than left ventricular congestive failure including: acute coronary syndromes, right heart strain/failure (including pulmonary embolism an d cor pulmonale), critical illness, and renal failure. Falsely low NT-proBNP in CHF patients may be observed in increased body mass index. Specimen Blood TROPONIN T (07/29/2016 9:59 AM) Component Value Range Troponin-T <0.03 <=0.10 ng/mL Specimen Blood
--- NOTE | 2016-08-20 15:29 | ERNOTE ---
Date of Service: 08/20/16 Time Seen by Provider: 08/20/16 15:21 Stated Complaint: COUGH Presenting Symptoms:: cough Source: patient Exam Limitations: no limitations Immunizations: IMMUNIZATION HX Immunizations Up to Date Yes History of Influenza Vaccine Yes Hx Pneumococcal Vaccination Yes Allergies/Adverse Reactions: Allergies Penicillins Allergy (Intermediate, Verified 08/20/16 15:05) HIVES, THROAT SWELLS ezetimibe [From Zetia] Adverse Reaction (Mild, Verified 08/20/16 15:05) FEELS TINGLY ALL OVER, SIDE PAIN glipizide [From Glucotrol] Adverse Reaction (Mild, Verified 08/20/16 15:05) HAIR FELL OUT indomethacin [From Indocin] Adverse Reaction (Mild, Verified 08/20/16 15:05) GI BLEED indomethacin sodium [From Indocin] Adverse Reaction (Mild, Verified 08/20/16 15: 05) GI BLEED Vibibeb-Mbm-Yoe Reductase Inhibitor Adverse Reaction (Mild, Verified 08/20/16 15 :05) MUSCLE ACHES metformin HCl [From Glucophage] Adverse Reaction (Verified 08/20/16 15:05) JUST DOESNT WORK Home Medications: HOME MEDICATIONS Atenolol [Tenormin] 25 mg PO DAILY 03/13/14 [Last Taken 07/09/16 10:00] Gemfibrozil [Lopid] 600 mg PO BID 03/13/14 [Last Taken 07/09/16 10:00] Insul NPH Hu Rec/Ins Rg Hu Rec [Novolin 70/30] 20 units SQ AC 03/13/14 [Last Taken 07/09/16 09:00] Levothyroxine Sodium [Unithroid] 125 mcg PO DAILY 03/13/14 [Last Taken 07/09/16 10:00] Potassium Chloride [Klor-Con M20] 20 meq PO DAILY 03/13/14 [Last Taken 07/08/16 17:00] Allopurinol [Zyloprim] 200 mg PO DAILY #60 tablet 12/27/14 [Last Taken 07/09/16 10:00] Blood Sugar Diagnostic, Drum [Accu-Chek Compact] 1 each MC TID 06/18/15 [Last Taken Unknown] Cholecalciferol (Vitamin D3) [Vitamin D3] 800 unit PO DAILY 06/18/15 [Last Taken 07/09/16 10:00] Fluticasone Propionate [Flonase] 1 spray NS BID PRN 06/18/15 [Last Taken Unknown ] Lisinopril [Zestril] 2.5 mg PO DAILY 06/18/15 [Last Taken 07/09/16 10:00] Multivitamins [Multivitamin Dhara] 1 cap PO DAILY 06/18/15 [Last Taken 10:00] Nitroglycerin [Nitrostat] 0.4 mg SL Q5MIN PRN 06/18/15 [Last Taken Unknown] Warfarin Sodium 3 mg PO DAILY 07/09/16 [Last Taken 07/06/16 09:00] Warfarin Sodium [Coumadin] 4 mg PO DAILY 07/09/16 [Last Taken 07/09/16 10:00] Bumetanide 1 mg PO BID #60 tablet 07/10/16 [Last Taken Unknown] Albuterol Sulfate [Ventolin Hfa] 8 gm IH DAILY #1 inhaler 08/20/16 [Last Taken Unknown] Benzonatate 200 mg PO TID PRN 08/20/16 [Last Taken Unknown] predniSONE [Prednisone] 30 mg PO DAILY #4 tablet 08/20/16 [Last Taken Unknown] - History of Present Ilness Narrative: 75-year-old female presents to the emergency room for her cough has become 5 days ago. She states that she was recently in [place] for CHF exacerbation for 2 weeks. Patient states that she is able to get some of the phlegm up and it is a white color.denies increased swelling of BLE and denies weight increase. Date (Duration): 08/20/16 Timing: getting worse Severity: moderate Frequency/Possible Cause: Reports: no prior episodes Modifying Factors - Improves: Reports: nothing Modifying Factors - Worsens: Reports: coughing Review of Systems - Narrative Narrative: c/o cough x 5 days, informed Dr Perkins of her cough and she advised her to go to the ER. - Review of Systems Constitutional: Present: See HPI, recent illness EYE: Present: no symptoms reported ENT: Present: no symptoms reported. Absent: nose pain, nose congestion, nasal drainage Respiratory: Present: cough Cardiology: Present: no symptoms reported Gastrointestinal/Abdominal: Present: no symptoms reported Genitourinary: Present: no symptoms reported Musculoskeletal: Present: no symptoms reported Skin: Present: no symptoms reported Neurological: Present: no symptoms reported Endocrine: Present: no symptoms reported Hematologic/Lymphatic: Present: no symptoms reported Psych: Present: no symptoms reported - Patient's Past Medical History Patient History - Medical: Arthritis, Cataracts, Diabetes Type 2 Insulin Dependent, GERD, Hypothyroidism, UTI'S Patient History - Cardiac/Respiratory: Atrial Fibrillation, Bronchitis, Cardiomyopathy, CHF, Hypertension, Myocardial Infarction, Pneumonia Patient History - Cancer: No Hx of Cancer Patient History - Surgical Procedures: Cataracts, Cholecystectomy, Hysterectomy , Pacemaker, Other Patient History - Other: None LMP (females 10-50): Menopausal - Family History Mother Family History - Medical: No pertinent hx Family History - Cardiac/Respiratory: Hypertension Family History - Cancer: No pertinent family hx - Social History Living Situations: home Abuse History: No History of abuse Psych History: No pertinent hx Smoking Status: Former smoker Have you smoked in the past 12 months: No Alcohol Use: none Drug Use: none - Immunizations Immunizations Up to Date: Yes Hx Pneumococcal Vaccination: Yes History of Influenza Vaccine: Yes Physical Exam - Physical Exam Narrative: patient has a cough that is slightly productive with white phlegm. no resp distress observed General Appearance: Present: wd/wn, alert, no apparent distress Eye Exam: Normal inspection: bilateral Ears, Nose, Throat: Present: normal ENT inspection, normal pharynx. Absent: abnormal TM (R), abnormal TM (L), nasal congestion, sinus pain/drainage, pharyngeal erythema Neck: Present: normal inspection, nontender Respiratory: Present: no respiratory distress, crackles - bll Cardiovascular/Chest: Present: normal peripheral pulses, irregularly irregular Gastrointestinal/Abdominal: Present: normal bowel sounds, soft Back Exam: Present: normal inspection, normal range of motion Extremity Exam: Present: normal inspection, non-tender, normal range of motion, no edema Neurological Exam: Present: alert, oriented, normal mood/affect, no motor/ sensory deficits Skin Exam: Present: normal color, warm/dry Lymphatic Exam: Present: no adenopathy ED Progress - Results and Orders Patient's Lab Results:: I have reviewed the patient's lab results. Results and Orders: no acute process - Vital Signs Vital Signs: Vital Signs 08/20/16 15:02 Temperature 36.4 C L Pulse Rate 80 Respiratory 18 Rate Blood Pressure 122/73 O2 Sat by Pulse 100 Oximetry - X-Ray X-Ray #1 X-Ray: chest Interpretation: Reviewed by me X-ray Comments: echnique: Frontal and lateral views of the chest are evaluated. (2) views. Comparison: Prior exams the most recent is July 09, 2016 Findings: There is a left anterior chest wall cardiac defibrillator device with unchanged positioning of leads superimposed over the right atrium, right ventricle and coronary sinus. The patient is rotated. The lungs are symmetrically inflated. No focal consolidation. No pneumothorax or pleural effusion. The cardiac silhouette is enlarged. The mediastinal contours are unchanged. There is suggestion of enlargement of the main pulmonary artery; correlate for signs pulmonary artery hypertension. Atherosclerotic changes are present throughout the aorta. The pulmonary vasculature is normal. Scattered calcified granulomas. The osseous structures are remarkable for degenerative changes. No acute osseous findings. Remote lower thoracic compression fracture deformity noted, possibly T11. IMPRESSION: No acute pulmonary findings. Additional findings and comments are as above. Electronically signed by Marino Gomez D.O.. - Progress/Reassessment Chief Complaint: Cough Progress:: Improved Plan - Plan Plan: patient states she feels better and would like to go home. Departure - Departure Clinical Impression: Bronchitis Disposition: Home Follow Up Needed Condition: Stable Instructions: Acute Bronchitis, [id number] Additional Instructions: Continue any previous home medications as directed. Follow up with her primary care provider in the next 2-3 days. Take steroids as directed. Monitor blood sugars related to steroids. Encourage oral fluids. Return to the emergency rooms if symptoms persist or become worse. Referrals: Ericka Perkins MD [Primary Care Provider] - Prescriptions: Albuterol Sulfate [Ventolin Hfa] 8 gm IH DAILY #1 inhaler predniSONE [Prednisone] 30 mg PO DAILY #4 tablet
[2016-08-20 15:35] LABS: Hematocrit 48.4 % (37.0-47.0); Mean Cell Volume 96.2 fl (78-100); Mean Corpuscular Hemoglobin 33.8 pg (27-31); Mean Corpuscular Hgb Conc 35.1 g/dl (32-36); Mean Platelet Volume 10.2 fl (6.0-9.5); Neutrophil # 6.8 K/mm3 (1.3-6.0); Neutrophil % 80.1 % (42-75.0); Platelet Count 280 K/mm3 (150-450); Red Blood Count 5.03 M/mm3 (4.2-5.4); Red Cell Distribution Width 13.8 % (11.5-14.0); White Blood Count 8.5 K/mm3 (4.0-10.5)
[2016-08-20 15:57] LABS: Albumin * 2.6 gm/dl (3.4-5.0); Anion Gap 8.1 mmol/L (6.8-13.8); BUN/Creatinine Ratio 29.1 (9.0-21.6); Bilirubin, Total 0.8 mg/dL (0.0-1.1); Ca. Corrected For Albumin 10.6 mg/dL (8.4-10.2); Calcium * 9.8 mg/dL (7.9-10.9); Carbon Dioxide 33.4 mmol/L (24-32.6); Potassium 4.5 mmol/L (3.4-4.6); Total Protein 7.6 gm/dL (6.2-8.2)
[2016-08-20] MEDS ORDERED: predniSONE 10 MG TABLET PO ONE (16:33)
[2016-08-20] MEDS ORDERED: ALBUTEROL SULFATE/IPRATROPIUM 3 ML NEBU IH ONE ×2 (16:35→16:39)
[2016-08-20 16:51] VITALS: BP 111/57
== END 2016-08-20 17:11 | disposition home or self-care (01) ==
LOC: ER 14:54
DX: J20.9 Acute bronchitis, unspecified (principal); I48.91 Unspecified atrial fibrillation; Z79.01 Long term (current) use of anticoagulants; I50.9 Heart failure, unspecified; I10 Essential (primary) hypertension; I25.2 Old myocardial infarction

== ENCOUNTER 2018-08-11 17:53 | Inpatient (IN) ==
--- NOTE | 2018-08-11 18:04 | ERNOTE ---
Back Pain ER HPI Date of Service: 08/11/18 Presenting Symptoms: hx chronic back pain Time Seen by Provider: 08/11/18 17:56 Source: patient Exam Limitations: no limitations Immunizations: IMMUNIZATION HX Immunizations Up to Date No History of Influenza Vaccine Yes Hx Pneumococcal Vaccination Yes Allergies/Adverse Reactions: Allergies Penicillins Allergy (Severe, Verified 08/11/18 18:01) HIVES, THROAT SWELLS indomethacin [From Indocin] Adverse Reaction (Intermediate, Verified 08/11/18 18:01) GI BLEED indomethacin sodium [From Indocin] Adverse Reaction (Intermediate, Verified 08/11/18 18:01) GI BLEED ezetimibe [From Zetia] Adverse Reaction (Mild, Verified 08/11/18 18:01) FEELS TINGLY ALL OVER, SIDE PAIN glipizide [From Glucotrol] Adverse Reaction (Mild, Verified 08/11/18 18:01) HAIR FELL OUT metformin HCl [From Glucophage] Adverse Reaction (Mild, Verified 08/11/18 18:01) JUST DOESNT WORK Djfcugb-Jua-Plr Reductase Inhibitor Adverse Reaction (Mild, Verified 08/11/18 18:01) MUSCLE ACHES Home Medications: HOME MEDICATIONS Multivitamins [Multivitamin Dhara] 1 cap PO DAILY 06/18/15 [Last Taken 07/09/16 10:00] Nitroglycerin [Nitrostat] 0.4 mg SL Q5MIN PRN 06/18/15 [Last Taken Unknown] Metoprolol Succinate [Toprol Xl] 50 mg PO DAILY 10/08/16 [Last Taken 11/25/17] Fluticasone Furoate [Flonase Sensimist] 1 spray NS DAILY PRN 07/10/17 [Last Taken Unknown] Lisinopril [Zestril] 2.5 mg PO DAILY 07/10/17 [Last Taken 11/25/17] cholecalciferol (vitamin D3) 2,000 unit capsule 2,000 unit PO DAILY 11/05/17 [Last Taken 11/24/17] furosemide 40 mg tablet 120 mg PO DAILY tab 11/05/17 [Last Taken 11/24/17] rivaroxaban 15 mg tablet 15 mg PO QPM #30 tab 01/28/18 [Last Taken Unknown] gemfibrozil 600 mg tablet 600 mg PO BID #60 tab 11/27/18 [Last Taken Unknown] insulin human U-100 NPH-regulr 70-30 mix 100 unit/mL subcutaneous susp 30 unit SUBCUT .COMPLEX #60 ml 04/12/18 [Last Taken Unknown] albuterol sulfate HFA 90 mcg/actuation aerosol inhaler 2 puff IH Q4H PRN #18 g 04/29/18 [Last Taken Unknown] levothyroxine 175 mcg tablet 175 mcg PO DAILY #90 tab 05/13/18 [Last Taken Unknown] potassium chloride ER 10 mEq capsule,extended release 20 meq PO DAILY #180 cap 05/13/18 [Last Taken Unknown] pantoprazole 40 mg tablet,delayed release 40 mg PO DAILY #30 tab 07/23/18 [Last Taken Unknown] tizanidine 4 mg tablet 4 mg PO Q6H PRN #30 tab 07/29/18 [Last Taken Unknown] ondansetron HCl 8 mg tablet 8 mg PO DAILY PRN #30 tab 08/10/18 [Last Taken Unknown] - Pain Score Pain Score #1 Pain Score: 10 Narrative: The patient is a 77 year old female who presents for unsteady gait and back pain which has been present since 08/06/18. There are no associated symptoms. The patient reports low back pain, 12/23. There are no alleviating factors. There are aggravating factors of activity. Previous treatments have included: Tylenol and Ibuprofen without improvement. The past medical history includes: AFib, CRF, CHF, CAD, DM, HTN, HLD, hypothyroid and LA. The social history is negative. The patient has had no ill contacts. Patient was previously seen by and dx with L2 compression fx. Patient was scheduled to see Sharif YUNG yesterday but reports cancelling her appt and rescheduled for tomorrow 08/12/18. Patient reports having increased weakness and feeling shaky. Review of Systems - Review of Systems Constitutional: Present: fatigue. Absent: fever EYE: Present: no symptoms reported ENT: Present: no symptoms reported. Absent: ear pain, nasal drainage, sore throat Respiratory: Present: no symptoms reported. Absent: shortness of breath, cough Cardiology: Present: no symptoms reported. Absent: chest pain Gastrointestinal/Abdominal: Present: no symptoms reported. Absent: nausea, vomiting, diarrhea, abdominal pain Genitourinary: Present: no symptoms reported. Absent: dysuria, decreased urinary output Musculoskeletal: Present: back pain Skin: Present: no symptoms reported. Absent: rash Neurological: Present: weakness. Absent: numbness All Other Systems: All systems neg except as marked Medical History (Updated 08/06/18 @ 10:32 by Alycia Galvin CMA) Back pain Onset Date: Unknown Influenza vaccine refused has already received the vaccine for the season. 01/28/18 ARSEN Christianson Atrial fibrillation Onset Date: Unknown CAD (coronary artery disease) Onset Date: Unknown Cardiomyopathy Onset Date: ~2008 Chronic renal failure Onset Date: 09/02/13 Congestive heart failure Onset Date: Unknown Diabetes mellitus type 2, noninsulin dependent Onset Date: Unknown Hyperlipidemia Onset Date: Unknown Hypertension Onset Date: Unknown Hypothyroidism (acquired) Onset Date: Unknown Candidiasis of mouth Onset Date: 10/07/12 Gout Onset Date: Unknown Herpes zoster Onset Date: ~04/2010 History of GI bleed Onset Date: ~2010 History of polymyalgia rheumatica Onset Date: ~2008 Myocardial infarct, old Onset Date: ~1983 x2 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 History of cholecystectomy Onset Date: ~1995 [place]-lap History of dilation and curettage Onset Date: ~1959 had 2 or 3 History of esophagogastroduodenoscopy (EGD) Onset Date: 11/25/17 11/30/14 [place]-moderate chronic gastritis. H.pylor negative. 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 History of eyelid surgery Onset Date: 01/16/16 [facility]-lift History of implantable cardiac defibrillator (ICD) Onset Date: ~2008 2004 with LV lead addition, 2008 ICDgenertor change with lead revision patient reports being on her fourth ICD History of total abdominal hysterectomy and bilateral salpingo-oophorectomy Onset Date: ~03/1995 Dr oL Pacemaker Onset Date: ~2002 patient stated she doesnt have this anymore because it didnt work for her. Family History: Family History (Last Reviewed 08/11/18 @ 18:03 by LUPE Ceron) Father , age 80's-stomach cancer Cancer stomach Mother , age 80's-strokes Diabetes Hypertension CVA (cerebral vascular accident) Brother , age 51-larynx cancer w/mets to liver Cancer larynx Sister , age 68-pancreatic ca Cancer pancreatic Daughter Multiple myeloma Daughter Osteosarcoma of pelvic bone Social History: Preferred Language Yoruba Smoking Status Never smoker Abuse History No History of abuse Psych History No pertinent hx (Last Updated 08/06/18 @ 15:24 by Ericka Perkins MD) No Social History Section defined Physical Exam - Physical Exam General Appearance: Present: wd/wn, alert, moderate distress Head Exam: Present: normal inspection Eye Exam: Normal inspection: bilateral Neck: Present: normal inspection Respiratory: Present: no respiratory distress, normal breath sounds, no accessory muscle use, lungs clear Cardiovascular/Chest: Present: regular rate, rhythm Peripheral Pulses: N=norm/S=strong/W=weak/B=bound/A=absent: Dorsalis-pedis (L): Normal Back Exam: Present: vertebral tenderness, decreased range of motion - pain with flexion and twisting Neurological Exam: Present: alert, oriented, normal mood/affect, no motor/sensory deficits. Absent: motor weakness Skin Exam: Present: normal color, warm/dry Progress - Date and Time Seen: Date and Time: 08/11/18 19:02 Discussed case with , will admit patient due to compression fracture, hyponatremia, hyperkalemia and acute renal failure. 08/11/18 20:21 Discussed results of BNP with as well as fluid resuscitation. Will administer NS at 80ml/hr and repeat CMP in 1 hour after admission. - Results and Orders Patient's Lab Results:: I have reviewed the patient's lab results. - Vital Signs Patient's Vital Signs:: I have reviewed the patient's vital signs. - EKG EKG #1 EKG read: Reviewed by me Departure Clinical Impression: Hyperkalemia, Hyponatremia, Compression fracture Acute renal failure Qualifiers: Acute renal failure type: unspecified Qualified Code(s): N17.9 - Acute kidney failure, unspecified - Departure Disposition: Still a patient Condition: Fair
[2018-08-11] MEDS ORDERED: HYDROcodone/ACETAMINOPHEN 1 EACH TABLET PO ONE (18:11)
[2018-08-11 18:29] LABS: Hematocrit 56.8 % (37.0-47.0); Hemoglobin 18.8 gm/dL (12.5-16.0); Mean Cell Volume 101.6 fl (78-100); Mean Corpuscular Hemoglobin 33.6 pg (27-31); Mean Corpuscular Hgb Conc 33.1 g/dl (32-36); Mean Platelet Volume 10.7 fl (8-12.5); Neutrophil # 5.7 K/mm3 (1.3-6.0); Neutrophil % 76.9 % (42-75.0); Platelet Count 282 K/mm3 (150-450); Red Blood Count 5.59 M/mm3 (4.2-5.4); Red Cell Distribution Width 14.2 % (11.5-14.0); White Blood Count 7.4 K/mm3 (4.0-10.5)
[2018-08-11 18:30] LABS: Urine Bilirubin 1 mg/dl (NEGATIVE); Urine Blood Negative /ul (NEGATIVE); Urine Ketone Negative (NEGATIVE); Urine Nitrite Negative (NEGATIVE); Urine Protein 30 mg/dL (NEGATIVE); Urine Specific Gravity 1.025 SP.GR. (1.005-1.010); Urine Urobilinogen Normal (NORMAL); Urine pH 5.5 pH (5.0-7.0)
[2018-08-11 18:41] LABS: Albumin * 3.6 gm/dl (3.4-5.0); Anion Gap 23.4 mmol/L (6.8-13.8); BUN/Creatinine Ratio 31.7 (9.0-21.6); Bilirubin, Total 0.7 mg/dL (0.0-1.1); Ca. Corrected For Albumin 10.5 mg/dL (8.4-10.2); Calcium * 10.5 mg/dL (7.9-10.9); Carbon Dioxide 21.4 mmol/L (24-32.6); Total Protein 7.9 gm/dL (6.2-8.2)
[2018-08-11 18:42] LABS: Urine Amorphous Sediment Few - 1+ (NONE-FEW); Urine Appearance Clear (CLEAR); Urine Bacteria TRACE; Urine Color Dark Yellow; Urine RBC None Seen /hpf (0-5); Urine WBC 0-5 /hpf (0-5)
[2018-08-11 18:49] LABS: Potassium 6.8 mmol/L (3.4-4.6)
[2018-08-11] MEDS ORDERED: CALCIUM GLUCONATE 4.65 MEQ/10 ML VIAL IV ONE (18:52)
[2018-08-11] MEDS ORDERED: INSULIN REGULAR, HUMAN 100 UNITS/ML VIAL IV ONE (18:52)
[2018-08-11] MEDS ORDERED: DEXTROSE 50%-WATER 50 ML SYRG IV ONE (18:52)
[2018-08-11] MEDS ORDERED: SODIUM POLYSTYRENE SULFON/SORB 15 G/60 ML BTL PO ONE (18:54)
[2018-08-11 20:19] LABS: BNP * 15748 pg/mL (5-550); Sodium 128 mmol/L (132-142)
[2018-08-11] MEDS: NORMAL SALINE 1,000 ML IV PRN (20:21)
[2018-08-11 21:29] LABS: Albumin * 3.3 gm/dl (3.4-5.0); Anion Gap 22.1 mmol/L (6.8-13.8); BUN/Creatinine Ratio 33.8 (9.0-21.6); Bilirubin, Total 0.7 mg/dL (0.0-1.1); Ca. Corrected For Albumin 10.8 mg/dL (8.4-10.2); Calcium * 10.6 mg/dL (7.9-10.9); Carbon Dioxide 19.7 mmol/L (24-32.6); Potassium 5.8 mmol/L (3.4-4.6); Total Protein 7.2 gm/dL (6.2-8.2)
--- NOTE | 2018-08-11 23:45 | HP ---
Chief Complaint - Chief Complaint Date of Service: 08/11/18 Time of Service: 23:45 Chief Complaint: Back pain, weakness History of Present Illness: Yannick is a 77 yo female with lumbar compression fracture. She is scheduled to see spine but is having too much pain to move. She has not been eating due to nausea and interest that she believes is due to the pain. In the ER she had bloodwork that showed Sodium of 128, Potassium of 6.8, and Creatinine of 3.5 (baseline near 2). She was given IV fluids and kayexalate. Potassium was rechecked and improving. Medical History (Updated 08/15/18 @ 17:12 by Elsie Amin MD) Back pain Onset Date: Unknown Influenza vaccine refused has already received the vaccine for the season. 01/28/18 ARSEN Christianson Atrial fibrillation Onset Date: Unknown CAD (coronary artery disease) Onset Date: Unknown Cardiomyopathy Onset Date: ~2008 Chronic renal failure Onset Date: 09/02/13 Congestive heart failure Onset Date: Unknown Diabetes mellitus type 2, noninsulin dependent Onset Date: Unknown Hyperlipidemia Onset Date: Unknown Hypertension Onset Date: Unknown Hypothyroidism (acquired) Onset Date: Unknown Candidiasis of mouth Onset Date: 10/07/12 Gout Onset Date: Unknown Herpes zoster Onset Date: ~04/2010 History of GI bleed Onset Date: ~2010 History of polymyalgia rheumatica Onset Date: ~2008 Myocardial infarct, old Onset Date: ~1983 x2 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 History of cholecystectomy Onset Date: ~1995 Ruben-lap History of dilation and curettage Onset Date: ~1959 had 2 or 3 History of esophagogastroduodenoscopy (EGD) Onset Date: 11/25/17 11/30/14 Beatrice-moderate chronic gastritis. H.pylor negative. 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 History of eyelid surgery Onset Date: 01/16/16 [facility]-lift History of implantable cardiac defibrillator (ICD) Onset Date: ~2008 2004 with LV lead addition, 2008 ICDgenertor change with lead revision patient reports being on her fourth ICD History of total abdominal hysterectomy and bilateral salpingo-oophorectomy Onset Date: ~03/1995 Dr Lo Pacemaker Onset Date: ~2002 patient stated she doesnt have this anymore because it didnt work for her. 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 Smoking Status Never smoker Have you smoked in the past 12 No months Do you dip or chew tobacco No Abuse History No History of abuse Psych History No pertinent hx Alcohol Use none Drug Use none (Last Updated 08/06/18 @ 15:24 by Ericka Perkins MD) No Social History Section defined Review Of Systems (GEN) - Review of Systems Generalized/Overall Review: Present: Weakness. Absent: Chills, Fever EENTM: Present: No Symptoms Reported Respiratory: Absent: Cough, Shortness of Breath Cardiac: Absent: Chest Pain, Edema Abdominal: Present: Nausea. Absent: Vomiting, Abdominal Pain, Constipation, Diarrhea Genitourinary: Present: No Symptoms Reported Musculoskeletal: Present: Back Pain Neurological: Present: No Symptoms Reported Skin: Present: No Symptoms Reported Endocrine: Present: No Symptoms Reported Immunizations: IMMUNIZATION HX Immunizations Up to Date No History of Influenza Vaccine Yes Hx Pneumococcal Vaccination Yes Allergies/Adverse Reactions: Allergies Allergy/AdvReac Type Severity Reaction Status Date / Time Penicillins Allergy Severe HIVES, Verified 08/11/18 18:01 THROAT SWELLS indomethacin [From Indocin] AdvReac Intermediate GI BLEED Verified 08/11/18 18:01 indomethacin sodium AdvReac Intermediate GI BLEED Verified 08/11/18 18:01 [From Indocin] ezetimibe [From Zetia] AdvReac Mild FEELS Verified 08/11/18 18:01 TINGLY ALL OVER, SIDE PAIN glipizide [From Glucotrol] AdvReac Mild HAIR FELL Verified 08/11/18 18:01 OUT metformin HCl AdvReac Mild JUST Verified 08/11/18 18:01 [From Glucophage] DOESNT WORK [id number] Reductase AdvReac Mild MUSCLE Verified 08/11/18 18:01 Inhibitor ACHES Home Medications: HOME MEDICATIONS Multivitamins [Multivitamin Dhara] 1 cap PO DAILY 06/18/15 [Last Taken 07/09/16 10:00] Nitroglycerin [Nitrostat] 0.4 mg SL Q5MIN PRN 06/18/15 [Last Taken Unknown] Metoprolol Succinate [Toprol Xl] 50 mg PO DAILY 10/08/16 [Last Taken 11/25/17] Fluticasone Furoate [Flonase Sensimist] 1 spray NS DAILY PRN 07/10/17 [Last Taken Unknown] Lisinopril [Zestril] 2.5 mg PO DAILY 07/10/17 [Last Taken 11/25/17] cholecalciferol (vitamin D3) 2,000 unit capsule 2,000 unit PO DAILY 11/05/17 [Last Taken 11/24/17] furosemide 40 mg tablet 120 mg PO DAILY tab 11/05/17 [Last Taken 11/24/17] rivaroxaban 15 mg tablet 15 mg PO QPM #30 tab 01/28/18 [Last Taken Unknown] gemfibrozil 600 mg tablet 600 mg PO BID #60 tab 02/09/18 [Last Taken Unknown] insulin human U-100 NPH-regulr 70-30 mix 100 unit/mL subcutaneous susp 30 unit SUBCUT .COMPLEX #60 ml 04/12/18 [Last Taken Unknown] albuterol sulfate HFA 90 mcg/actuation aerosol inhaler 2 puff IH Q4H PRN #18 g 04/29/18 [Last Taken Unknown] levothyroxine 175 mcg tablet 175 mcg PO DAILY #90 tab 05/13/18 [Last Taken Unknown] potassium chloride ER 10 mEq capsule,extended release 20 meq PO DAILY #180 cap 05/13/18 [Last Taken Unknown] pantoprazole 40 mg tablet,delayed release 40 mg PO DAILY #30 tab 07/23/18 [Last Taken Unknown] tizanidine 4 mg tablet 4 mg PO Q6H PRN #30 tab 07/29/18 [Last Taken Unknown] ondansetron HCl 8 mg tablet 8 mg PO DAILY PRN #30 tab 08/10/18 [Last Taken Unknown] HYDROcodone/ACETAMINOPHEN [[place] 5-325] 2 ea PO Q6H PRN #90 tab 08/14/18 [Last Taken Unknown] Exam - Exam Vital Signs: Vital Signs - Last Taken Temp 37.2 C 08/11/18 21:24 Pulse 75 08/11/18 21:24 Resp 16 08/11/18 21:24 BP 106/60 08/11/18 21:24 Pulse Ox 95 08/11/18 21:24 Constitutional: Present: Alert, Oriented x3, Cooperative ENT Exam: Present: hearing grossly normal Eye Exam: bilateral eye: normal inspection Respiratory: Present: lungs clear, normal breath sounds Cardiovascular/Chest: Present: regular rate, rhythm, no murmur Peripheral Pulses: radial (R): 2+, radial (L): 2+ Abdomen: Present: Normal bowel sounds, soft, nontender, nondistended Skin Exam: Present: normal color, warm/dry, no cyanosis Neurologic: Present: alert, normal mood/affect, oriented x 3 Appearance: Present: appropriate appearance, appropriate insight, neat Eye contact: Present: cooperative, good eye contact, normal speech Diagnostic Studies: Abnormal Lab Results 08/11/18 08/11/18 08/11/18 Range/Units 18:20 18:20 18:20 RBC 5.59 H (4.2-5.4) M/mm3 Hgb 18.8 H (12.5-16.0) gm/dL Hct 56.8 H (37.0-47.0) % MCV 101.6 H (78-100) fl MCH 33.6 H (27-31) pg RDW 14.2 H (11.5-14.0) % Immature Gran % (Auto) 0.80 H (0.001-0.429) % Immature Gran # (Auto) 0.06 H (0.000-0.0310) K/mm3 Neutrophils % 76.9 H (42-75.0) % Lymphocytes % 10.3 L (20-51) % Monocytes % 10.6 H (0.0-9) % Lymphocytes # 0.77 L (1.5-3.5) k/mm3 Sodium 128 L (132-142) mmol/L Plasma Sodium (130-142) mmol/L Potassium 6.8 H* D (3.4-4.6) mmol/L Chloride 90 L (97-106) mmol/L Carbon Dioxide 21.4 L (24-32.6) mmol/L Anion Gap 23.4 H (6.8-13.8) mmol/L BUN 113 H D (3-23) mg/dL Creatinine 3.56 H D (0.4-1.4) mg/dL Est GFR (Non-Af Amer) 13 L D (60-130) mL/min BUN/Creatinine Ratio 31.7 H (9.0-21.6) Random Glucose 234 H (70-110) mg/dL Calcium Adj for Albumin 10.5 H (8.4-10.2) mg/dL ALT 13 L (19-67) U/L Alkaline Phosphatase 201 H (50-170) U/L B-Natriuretic Peptide (5-550) pg/mL Albumin (3.4-5.0) gm/dl Urine Protein 30 H (NEGATIVE) mg/dL Urine Bilirubin 1 H (NEGATIVE) mg/dl Ur Random Sodium (20-110) mmol/L 08/11/18 08/11/18 Range/Units 18:20 21:07 RBC (4.2-5.4) M/mm3 Hgb (12.5-16.0) gm/dL Hct (37.0-47.0) % MCV (78-100) fl MCH (27-31) pg RDW (11.5-14.0) % Immature Gran % (Auto) (0.001-0.429) % Immature Gran # (Auto) (0.000-0.0310) K/mm3 Neutrophils % (42-75.0) % Lymphocytes % (20-51) % Monocytes % (0.0-9) % Lymphocytes # (1.5-3.5) k/mm3 Sodium 128 L 128 L (132-142) mmol/L Plasma Sodium 129 L (130-142) mmol/L Potassium 5.8 H (3.4-4.6) mmol/L Chloride 92 L (97-106) mmol/L Carbon Dioxide 19.7 L (24-32.6) mmol/L Anion Gap 22.1 H (6.8-13.8) mmol/L BUN 115 H (3-23) mg/dL Creatinine 3.56 H 3.40 H (0.4-1.4) mg/dL Est GFR (Non-Af Amer) 14 L (60-130) mL/min BUN/Creatinine Ratio 33.8 H (9.0-21.6) Random Glucose 146 H D (70-110) mg/dL Calcium Adj for Albumin 10.8 H (8.4-10.2) mg/dL ALT 11 L (19-67) U/L Alkaline Phosphatase 186 H (50-170) U/L B-Natriuretic Peptide 08993 H (5-550) pg/mL Albumin 3.3 L (3.4-5.0) gm/dl Urine Protein (NEGATIVE) mg/dL Urine Bilirubin (NEGATIVE) mg/dl Ur Random Sodium 6 L (20-110) mmol/L Laboratory Results WBC 7.4 K/mm3 (4.0-10.5) 08/11/18 18:20 RBC 5.59 M/mm3 (4.2-5.4) H 08/11/18 18:20 Hgb 18.8 gm/dL (12.5-16.0) H 08/11/18 18:20 Hct 56.8 % (37.0-47.0) H 08/11/18 18:20 MCV 101.6 fl (78-100) H 08/11/18 18:20 MCH 33.6 pg (27-31) H 08/11/18 18:20 MCHC 33.1 g/dl (32-36) 08/11/18 18:20 RDW 14.2 % (11.5-14.0) H 08/11/18 18:20 Plt Count 282 K/mm3 (150-450) 08/11/18 18:20 MPV 10.7 fl (8-12.5) 08/11/18 18:20 Immature Gran % (Auto) 0.80 % (0.001-0.429) H 08/11/18 18:20 Immature Gran # (Auto) 0.06 K/mm3 (0.000-0.0310) H 08/11/18 18:20 76.9 % (42-75.0) H 08/11/18 18:20 10.3 % (20-51) L 08/11/18 18:20 10.6 % (0.0-9) H 08/11/18 18:20 0.5 % (0.0-3.0) 08/11/18 18:20 0.9 % (0.0-1.0) 08/11/18 18:20 Nucleated RBC % 0.0 k/mm3 (0-1) 08/11/18 18:20 5.7 K/mm3 (1.3-6.0) 08/11/18 18:20 0.77 k/mm3 (1.5-3.5) L 08/11/18 18:20 0.8 k/mm3 (0.0-1.0) 08/11/18 18:20 0.0 k/mm3 (0.0-0.7) 08/11/18 18:20 Absolute Basophils 0.1 k/mm3 (0.0-0.1) 08/11/18 18:20 Sodium 128 mmol/L (132-142) L 08/11/18 21:07 129 mmol/L (130-142) L 08/11/18 21:07 Potassium 5.8 mmol/L (3.4-4.6) H 08/11/18 21:07 Chloride 92 mmol/L (97-106) L 08/11/18 21:07 Carbon Dioxide 19.7 mmol/L (24-32.6) L 08/11/18 21:07 22.1 mmol/L (6.8-13.8) H 08/11/18 21:07 BUN 115 mg/dL (3-23) H 08/11/18 21:07 3.40 mg/dL (0.4-1.4) H 08/11/18 21:07 Est GFR (Non-Af Amer) 14 mL/min (60-130) L 08/11/18 21:07 TNP 08/11/18 18:20 33.8 (9.0-21.6) H 08/11/18 21:07 146 mg/dL (70-110) H D 08/11/18 21:07 Calcium 10.6 mg/dL (7.9-10.9) 08/11/18 21:07 Calcium Adj for Albumin 10.8 mg/dL (8.4-10.2) H 08/11/18 21:07 0.7 mg/dL (0.0-1.1) 08/11/18 21:07 AST 17 U/L (0-48) 08/11/18 21:07 ALT 11 U/L (19-67) L 08/11/18 21:07 186 U/L (50-170) H 08/11/18 21:07 B-Natriuretic Peptide 66950 pg/mL (5-550) H 08/11/18 18:20 7.2 gm/dL (6.2-8.2) 08/11/18 21:07 3.3 gm/dl (3.4-5.0) L 08/11/18 21:07 Dark yellow 08/11/18 18:20 Clear (CLEAR) 08/11/18 18:20 5.5 pH (5.0-7.0) 08/11/18 18:20 Ur Specific [place] 1.025 SP.GR. (1.005-1.010) 08/11/18 18:20 30 mg/dL (NEGATIVE) H 08/11/18 18:20 Negative mg/dL (NEGATIVE) 08/11/18 18:20 Negative mg/dL (NEGATIVE) 08/11/18 18:20 Negative /ul (NEGATIVE) 08/11/18 18:20 Negative (NEGATIVE) 08/11/18 18:20 1 mg/dl (NEGATIVE) H 08/11/18 18:20 Negative (NEGATIVE) 08/11/18 18:20 Prot Sulfosalicylic Acd 1+ mg/dL (0) 08/11/18 18:20 Normal EU/dl (NORMAL) 08/11/18 18:20 Ur Leukocyte Esterase Negative /ul (NEGATIVE) 08/11/18 18:20 None seen /hpf (0-5) 08/11/18 18:20 0-5 /hpf (0-5) 08/11/18 18:20 Ur Epithelial Cells 0-5 /hpf (0-5) 08/11/18 18:20 Amorphous Sediment Few - 1+ (NONE-FEW) 08/11/18 18:20 Trace (NONE) 08/11/18 18:20 Culture to follow 08/11/18 18:20 Ur Random Creatinine 102.1 mg/dL (60-200) 08/11/18 18:20 Ur Random Sodium 6 mmol/L (20-110) L 08/11/18 18:20 Fraction Sodium Excret 0.0 % 08/11/18 18:20 Assessment/Plan - Narrative Narrative: Yannick is a 77 yo female with Hyponatremia of 128, Hyperkalemia of 6.8, and acute on chronic renal failure secondary to poor intake due to lumbar compression fracture and associate pain/nausea. Will correct above with fluids and monitoring of electrolytes. Will try hydrocodone for pain control, she previously had problems with tramadol so will be cautious. Will admit to inpatient status as it will take a few days of fluid and monitoring to correct electrolyte imbalance and get pain controlled. - Assessment/Plan (1) Hyponatremia Problem: Resolved (2) Hyperkalemia Problem: Resolved (3) Acute on chronic renal failure Problem: Acute (4) Compression fracture Problem: Acute (5) Dehydration Problem: Acute
[2018-08-12] MEDS: HYDROcodone/ACETAMINOPHEN 1 EACH TABLET PO PRN ×3 (00:02→10:23)
[2018-08-12] MEDS: GEMFIBROZIL 600 MG TABLET PO SCH ×2 (08:10→16:00)
[2018-08-12] MEDS: MULTIVITAMINS 1 CAP CAPSULE PO SCH (08:10)
[2018-08-12] MEDS: CHOLECALCIFEROL 1,000 UNIT CAPSULE PO SCH (08:10)
[2018-08-12] MEDS: tiZANidine HCL 4 MG TABLET PO PRN (08:10)
[2018-08-12] MEDS: PANTOPRAZOLE SODIUM 40 MG TABLET.EC PO SCH (08:10)
[2018-08-12] MEDS: METOPROLOL SUCCINATE 50 MG TABLET.SA PO SCH ×2 (08:10→08:19)
[2018-08-12] MEDS: LISINOPRIL 2.5 MG TABLET PO SCH ×2 (08:11→08:19)
[2018-08-12] MEDS: FUROSEMIDE 40 MG TABLET PO SCH ×2 (08:11→08:19)
[2018-08-12] MEDS: LEVOTHYROXINE SODIUM 175 MCG TABLET PO SCH (08:11)
[2018-08-12] MEDS: NORMAL SALINE 1,000 ML IV PRN ×2 (08:23→20:37)
[2018-08-12] MEDS ORDERED: POTASSIUM CHLORIDE 20 MEQ TABLET.SA PO SCH (09:00)
[2018-08-12 09:19] LABS: Hematocrit 52.1 % (37.0-47.0); Hemoglobin 17.5 gm/dL (12.5-16.0); Mean Cell Volume 100.8 fl (78-100); Mean Corpuscular Hemoglobin 33.8 pg (27-31); Mean Corpuscular Hgb Conc 33.6 g/dl (32-36); Mean Platelet Volume 10.8 fl (8-12.5); Neutrophil # 6.4 K/mm3 (1.3-6.0); Neutrophil % 76.4 % (42-75.0); Platelet Count 253 K/mm3 (150-450); Red Blood Count 5.17 M/mm3 (4.2-5.4); Red Cell Distribution Width 14.3 % (11.5-14.0); White Blood Count 8.3 K/mm3 (4.0-10.5)
[2018-08-12 09:22] LABS: Albumin * 3.2 gm/dl (3.4-5.0); Anion Gap 21.2 mmol/L (6.8-13.8); Bilirubin, Total 0.7 mg/dL (0.0-1.1); Ca. Corrected For Albumin 9.9 mg/dL (8.4-10.2); Calcium * 9.6 mg/dL (7.9-10.9); Carbon Dioxide 20.2 mmol/L (24-32.6); Potassium 5.4 mmol/L (3.4-4.6); Total Protein 6.9 gm/dL (6.2-8.2)
[2018-08-12] MEDS: RIVAROXABAN 15 MG TABLET PO SCH (16:00)
--- NOTE | 2018-08-12 23:58 | PN ---
Subjective - Date and Time Seen Date: 08/12/18 Time: 23:58 Subjective Narrative: She reports continue back pain. No nausea, but no appetite. No fever or chills. Back pain is worse with motion. Objective - Vitals Vitals: Last Vital Signs Temp 36.4 C 08/12/18 20:57 Pulse 78 08/12/18 20:57 Resp 18 08/12/18 20:57 BP 107/63 08/12/18 20:57 Pulse Ox 92 L 08/12/18 20:57 - Abnormal Lab Findings Abnormal Lab Findings: Abnormal Lab Results 08/12/18 08/12/18 Range/Units 08:56 08:56 Hgb 17.5 H (12.5-16.0) gm/dL Hct 52.1 H (37.0-47.0) % MCV 100.8 H (78-100) fl MCH 33.8 H (27-31) pg RDW 14.3 H (11.5-14.0) % Immature Gran % (Auto) 0.60 H (0.001-0.429) % Immature Gran # (Auto) 0.05 H (0.000-0.0310) K/mm3 Neutrophils % 76.4 H (42-75.0) % Lymphocytes % 7.2 L (20-51) % Monocytes % 13.9 H (0.0-9) % Neutrophils # 6.4 H (1.3-6.0) K/mm3 Lymphocytes # 0.60 L (1.5-3.5) k/mm3 Monocytes # 1.2 H (0.0-1.0) k/mm3 Sodium 131 L (132-142) mmol/L Potassium 5.4 H (3.4-4.6) mmol/L Chloride 95 L (97-106) mmol/L Carbon Dioxide 20.2 L (24-32.6) mmol/L Anion Gap 21.2 H (6.8-13.8) mmol/L BUN 106 H (3-23) mg/dL Creatinine 3.31 H (0.4-1.4) mg/dL Est GFR (Non-Af Amer) 14 L (60-130) mL/min BUN/Creatinine Ratio 32.0 H (9.0-21.6) Random Glucose 213 H D (70-110) mg/dL ALT 13 L (19-67) U/L Alkaline Phosphatase 180 H (50-170) U/L Albumin 3.2 L (3.4-5.0) gm/dl - Exam Constitutional: Present: Alert, Oriented x3, Cooperative Respiratory: Present: lungs clear, normal breath sounds Cardiovascular/Chest: Present: regular rate, rhythm, no murmur Abdomen: Present: Normal bowel sounds, soft, nontender, nondistended Skin Exam: Present: normal color, warm/dry, no cyanosis Assessment/Plan Plan Narrative: Lab work improving with fluid. Will continue. Will treat pain with hydrocodone to see if we can control pain without upsetting stomach. She will take this with food. Continue to monitor electrolytes. - Problems/Diagnosis (1) Compression fracture Problem: Acute (2) Hyperkalemia Problem: Resolved (3) Hyponatremia Problem: Resolved (4) Acute on chronic renal failure Problem: Acute (5) Dehydration Problem: Acute
[2018-08-13 05:47] LABS: Anion Gap 18.6 mmol/L (6.8-13.8); BUN/Creatinine Ratio 33.4 (9.0-21.6); Bilirubin, Total 0.8 mg/dL (0.0-1.1); Ca. Corrected For Albumin 9.5 mg/dL (8.4-10.2); Carbon Dioxide 24.1 mmol/L (24-32.6); Potassium 4.7 mmol/L (3.4-4.6); Total Protein 6.7 gm/dL (6.2-8.2)
[2018-08-13] MEDS: PANTOPRAZOLE SODIUM 40 MG TABLET.EC PO SCH (06:51)
[2018-08-13] MEDS: LEVOTHYROXINE SODIUM 175 MCG TABLET PO SCH (06:51)
[2018-08-13] MEDS: LISINOPRIL 2.5 MG TABLET PO SCH (09:18)
[2018-08-13] MEDS: GEMFIBROZIL 600 MG TABLET PO SCH ×2 (09:18→16:06)
[2018-08-13] MEDS: CHOLECALCIFEROL 1,000 UNIT CAPSULE PO SCH (09:18)
[2018-08-13] MEDS: METOPROLOL SUCCINATE 50 MG TABLET.SA PO SCH (09:19)
[2018-08-13] MEDS: FUROSEMIDE 40 MG TABLET PO SCH (09:19)
[2018-08-13] MEDS: MULTIVITAMINS 1 CAP CAPSULE PO SCH (09:19)
[2018-08-13] MEDS: NORMAL SALINE 1,000 ML IV PRN ×2 (09:29→21:59)
[2018-08-13] MEDS: RIVAROXABAN 15 MG TABLET PO SCH (16:05)
[2018-08-13] MEDS: HYDROcodone/ACETAMINOPHEN 1 EACH TABLET PO PRN ×2 (16:06→22:05)
--- NOTE | 2018-08-13 23:07 | PN ---
Subjective - Date and Time Seen Date: 08/13/18 Time: 15:30 Subjective Narrative: She reports pain is improved. Hydrocodone is helping and she is not feeling sick if she takes it with food. Continue fluids as renal function is not back at her baseline. Sodium and potassium have corrected. Objective - Vitals Vitals: Last Vital Signs Temp 36.8 C 08/13/18 18:11 Pulse 75 08/13/18 18:11 Resp 16 08/13/18 18:11 BP 120/60 08/13/18 18:11 Pulse Ox 100 08/13/18 18:11 - Abnormal Lab Findings Abnormal Lab Findings: Abnormal Lab Results 08/13/18 Range/Units 05:30 Potassium 4.7 H (3.4-4.6) mmol/L Anion Gap 18.6 H (6.8-13.8) mmol/L BUN 97 H (3-23) mg/dL Creatinine 2.90 H D (0.4-1.4) mg/dL Est GFR (Non-Af Amer) 17 L D (60-130) mL/min BUN/Creatinine Ratio 33.4 H (9.0-21.6) Random Glucose 183 H (70-110) mg/dL ALT 15 L (19-67) U/L Alkaline Phosphatase 177 H (50-170) U/L Albumin 3.0 L (3.4-5.0) gm/dl - Exam Constitutional: Present: Alert, Oriented x3, Cooperative ENT Exam: Present: hearing grossly normal Respiratory: Present: lungs clear, normal breath sounds Cardiovascular/Chest: Present: regular rate, rhythm, no murmur Abdomen: Present: Normal bowel sounds, soft, nontender, nondistended Skin Exam: Present: normal color, warm/dry, no cyanosis Assessment/Plan Plan Narrative: Continue IV fluids. Continue to monitor labs and pain control. May be able to discharge to home tomorrow if renal function continues to improve. - Problems/Diagnosis (1) Compression fracture Problem: Acute (2) Hyperkalemia Problem: Resolved (3) Hyponatremia Problem: Resolved (4) Acute on chronic renal failure Problem: Acute
[2018-08-14] MEDS: HYDROcodone/ACETAMINOPHEN 1 EACH TABLET PO PRN (05:43)
[2018-08-14 07:08] LABS: Hematocrit 50.6 % (37.0-47.0); Mean Cell Volume 100.6 fl (78-100); Mean Corpuscular Hemoglobin 33.8 pg (27-31); Mean Corpuscular Hgb Conc 33.6 g/dl (32-36); Mean Platelet Volume 10.8 fl (8-12.5); Neutrophil # 6.6 K/mm3 (1.3-6.0); Neutrophil % 83.3 % (42-75.0); Platelet Count 209 K/mm3 (150-450); Red Blood Count 5.03 M/mm3 (4.2-5.4); Red Cell Distribution Width 14.3 % (11.5-14.0); White Blood Count 7.9 K/mm3 (4.0-10.5)
--- NOTE | 2018-08-14 07:21 | DS ---
(1) Hyponatremia Problem: Acute (2) Compression fracture Problem: Acute (3) Hyperkalemia Problem: Acute (4) Acute on chronic renal failure Problem: Acute Description of Stay: Yannick is a 77 yo female that was admitted to inpatient status due to hyponatremia, hyperkalemia, and acute on chronic renal failure that was secondary to poor oral intake because of severe pain from lumbar compression fracture. Her pain was uncontrolled and she had no interest in food or hydration. She was given IV hydration with normal saline and acute treatment for hyperkalemia in the ER including kayexalate. With fluids her sodium, potassium, and renal function returned to her baseline. I tried hydrocodone for pain control and she tolerated this well. Pain was controlled and she was able to eat and drink. With the normalization of electrolytes, return to baseline of her renal function, and control of her pain she will be able to be discharged to home today. I will send in hydrocodone for her to continue at home. She will follow up with PCP and with spine in regards to consideration for kyphoplasty. Procedures Performed: none Results and Findings: Lab Pending Results 08/11/18 18:20: WBC 7.4, RBC 5.59 H, Hgb 18.8 H, Hct 56.8 H, MCV 101.6 H, MCH 33.6 H, MCHC 33.1, RDW 14.2 H, Plt Count 282, MPV 10.7, Immature Gran % (Auto) 0.80 H, Immature Gran # (Auto) 0.06 H, Neutrophils % 76.9 H, Lymphocytes % 10.3 L, Monocytes % 10.6 H, Eosinophils % 0.5, Basophils % 0.9, Nucleated RBC % 0.0, Neutrophils # 5.7, Lymphocytes # 0.77 L, Monocytes # 0.8, Eosinophils # 0.0, Absolute Basophils 0.1 08/11/18 18:20: Sodium 128 L, Plasma Sodium 130, Potassium 6.8 H* D, Chloride 90 L, Carbon Dioxide 21.4 L, Anion Gap 23.4 H, BUN 113 H D, Creatinine 3.56 H D, Est GFR (Non-Af Amer) 13 L D, BUN/Creatinine Ratio 31.7 H, Random Glucose 234 H, Calcium 10.5, Calcium Adj for Albumin 10.5 H, Total Bilirubin 0.7, AST 21, ALT 13 L, Alkaline Phosphatase 201 H, Total Protein 7.9, Albumin 3.6 08/11/18 18:20: Urine Color Dark yellow, Urine Appearance Clear, Urine pH 5.5, Ur Specific [place] 1.025, Urine Protein 30 H, Urine Glucose (UA) Negative, Urine Ketones Negative, Urine Blood Negative, Urine Nitrate Negative, Urine Bilirubin 1 H, Urine Ictotest Negative, Prot Sulfosalicylic Acd 1+, Urine Urobilinogen Normal, Ur Leukocyte Esterase Negative, Urine RBC None seen, Urine WBC 0-5, Ur Epithelial Cells 0-5, Amorphous Sediment Few - 1+, Urine Bacteria Trace, Urine Culture Comments Culture to follow 08/11/18 18:20: Sodium 128 L, Creatinine 3.56 H, Renal Failure Index TNP, B- Natriuretic Peptide 87008 H, Ur Random Creatinine 102.1, Ur Random Sodium 6 L, Fraction Sodium Excret 0.0 08/11/18 21:07: Sodium 128 L, Plasma Sodium 129 L, Potassium 5.8 H, Chloride 92 L, Carbon Dioxide 19.7 L, Anion Gap 22.1 H, BUN 115 H, Creatinine 3.40 H, Est GFR (Non-Af Amer) 14 L, BUN/Creatinine Ratio 33.8 H, Random Glucose 146 H D, Calcium 10.6, Calcium Adj for Albumin 10.8 H, Total Bilirubin 0.7, AST 17, ALT 11 L, Alkaline Phosphatase 186 H, Total Protein 7.2, Albumin 3.3 L 08/12/18 08:56: WBC 8.3, RBC 5.17, Hgb 17.5 H, Hct 52.1 H, MCV 100.8 H, MCH 33.8 H, MCHC 33.6, RDW 14.3 H, Plt Count 253, MPV 10.8, Immature Gran % (Auto) 0.60 H, Immature Gran # (Auto) 0.05 H, Neutrophils % 76.4 H, Lymphocytes % 7.2 L, Monocytes % 13.9 H, Eosinophils % 1.3, Basophils % 0.6, Nucleated RBC % 0.0, Neutrophils # 6.4 H, Lymphocytes # 0.60 L, Monocytes # 1.2 H, Eosinophils # 0.1, Absolute Basophils 0.1 08/12/18 08:56: Sodium 131 L, Plasma Sodium 133, Potassium 5.4 H, Chloride 95 L, Carbon Dioxide 20.2 L, Anion Gap 21.2 H, BUN 106 H, Creatinine 3.31 H, Est GFR (Non-Af Amer) 14 L, BUN/Creatinine Ratio 32.0 H, Random Glucose 213 H D, Calcium 9.6, Calcium Adj for Albumin 9.9, Total Bilirubin 0.7, AST 20, ALT 13 L, Alkaline Phosphatase 180 H, Total Protein 6.9, Albumin 3.2 L 08/13/18 05:30: Sodium 135, Plasma Sodium 136, Potassium 4.7 H, Chloride 97, Carbon Dioxide 24.1, Anion Gap 18.6 H, BUN 97 H, Creatinine 2.90 H D, Est GFR (Non-Af Amer) 17 L D, BUN/Creatinine Ratio 33.4 H, Random Glucose 183 H, Calcium 9.0, Calcium Adj for Albumin 9.5, Total Bilirubin 0.8, AST 18, ALT 15 L, Alkaline Phosphatase 177 H, Total Protein 6.7, Albumin 3.0 L 08/14/18 06:50: WBC 7.9, RBC 5.03, Hgb 17.0 H, Hct 50.6 H, MCV 100.6 H, MCH 33.8 H, MCHC 33.6, RDW 14.3 H, Plt Count 209, MPV 10.8, Immature Gran % (Auto) 0.40, Immature Gran # (Auto) 0.03, Neutrophils % 83.3 H, Lymphocytes % 4.5 L, Monocytes % 9.6 H, Eosinophils % 1.8, Basophils % 0.4, Nucleated RBC % 0.0, Neutrophils # 6.6 H, Lymphocytes # 0.35 L, Monocytes # 0.8, Eosinophils # 0.1, Absolute Basophils 0.0 Discharge Location: Home Disposition: Home Health Service Condition: Good Discharge Activity: Activity as tolerated Discharge Diet: General/regular food Referrals: Ericka Perkins MD [Primary Care Provider] - One Week Problem Oriented Discharge Instructions to Patient/Family: Hyponatremia, Spinal Compression Fracture Additional Patient Instructions (free text): -Please make TCM appointment unless skilled nursing discharge. Thank you! Melissa @ [phone]. Prescriptions (Any new or edited meds): HYDROcodone/ACETAMINOPHEN [[place] 5-325] 2 ea PO Q6H PRN #90 tab PRN Reason: Moderate Pain (Pain Scale 4-6) Complete Home Medications List: Complete Home Medication List: Multivitamins [Multivitamin Dhara] 1 cap PO DAILY 06/18/15 Nitroglycerin [Nitrostat] 0.4 mg SL Q5MIN PRN 06/18/15 Metoprolol Succinate [Toprol Xl] 50 mg PO DAILY 10/08/16 Fluticasone Furoate [Flonase Sensimist] 1 spray NS DAILY PRN 07/10/17 Lisinopril [Zestril] 2.5 mg PO DAILY 07/10/17 cholecalciferol (vitamin D3) 2,000 unit capsule 2,000 unit PO DAILY 11/05/17 furosemide 40 mg tablet 120 mg PO DAILY tab 11/05/17 rivaroxaban 15 mg tablet 15 mg PO QPM #30 tab 01/28/18 gemfibrozil 600 mg tablet 600 mg PO BID #60 tab 02/09/18 insulin human U-100 NPH-regulr 70-30 mix 100 unit/mL subcutaneous susp 30 unit SUBCUT .COMPLEX #60 ml 04/12/18 albuterol sulfate HFA 90 mcg/actuation aerosol inhaler 2 puff IH Q4H PRN #18 g 04/29/18 levothyroxine 175 mcg tablet 175 mcg PO DAILY #90 tab 05/13/18 potassium chloride ER 10 mEq capsule,extended release 20 meq PO DAILY #180 cap 05/13/18 pantoprazole 40 mg tablet,delayed release 40 mg PO DAILY #30 tab 07/23/18 tizanidine 4 mg tablet 4 mg PO Q6H PRN #30 tab 07/29/18 ondansetron HCl 8 mg tablet 8 mg PO DAILY PRN #30 tab 08/10/18 HYDROcodone/ACETAMINOPHEN [Tranquillity 5-325] 2 ea PO Q6H PRN #90 tab 08/14/18
[2018-08-14 07:22] LABS: Albumin * 2.9 gm/dl (3.4-5.0); Anion Gap 17.3 mmol/L (6.8-13.8); BUN/Creatinine Ratio 36.1 (9.0-21.6); Bilirubin, Total 0.7 mg/dL (0.0-1.1); Ca. Corrected For Albumin 9.5 mg/dL (8.4-10.2); Calcium * 8.9 mg/dL (7.9-10.9); Potassium 4.3 mmol/L (3.4-4.6); Total Protein 6.6 gm/dL (6.2-8.2)
[2018-08-14] MEDS: LEVOTHYROXINE SODIUM 175 MCG TABLET PO SCH (07:47)
[2018-08-14] MEDS: PANTOPRAZOLE SODIUM 40 MG TABLET.EC PO SCH (07:47)
[2018-08-14] MEDS ORDERED: ONDANSETRON HCL/PF 2 MG/ML VIAL IV ONE (09:13)
[2018-08-14] MEDS: MULTIVITAMINS 1 CAP CAPSULE PO SCH (09:52)
[2018-08-14] MEDS: CHOLECALCIFEROL 1,000 UNIT CAPSULE PO SCH (09:52)
[2018-08-14] MEDS: NORMAL SALINE 1,000 ML IV PRN (09:53)
[2018-08-14] MEDS: LISINOPRIL 2.5 MG TABLET PO SCH (10:45)
[2018-08-14] MEDS: GEMFIBROZIL 600 MG TABLET PO SCH ×2 (10:45→16:38)
[2018-08-14] MEDS: FUROSEMIDE 40 MG TABLET PO SCH (10:45)
[2018-08-14] MEDS: METOPROLOL SUCCINATE 50 MG TABLET.SA PO SCH (10:45)
[2018-08-14] MEDS: ONDANSETRON HCL 4 MG TABLET PO PRN ×2 (12:33→17:47)
[2018-08-14] MEDS: RIVAROXABAN 15 MG TABLET PO SCH (16:38)
[2018-08-14] MEDS: BISACODYL 5 MG TABLET.DR PO PRN (19:13)
[2018-08-14] MEDS: tiZANidine HCL 4 MG TABLET PO PRN (19:13)
[2018-08-15] MEDS: LEVOTHYROXINE SODIUM 175 MCG TABLET PO SCH (06:51)
[2018-08-15] MEDS: PANTOPRAZOLE SODIUM 40 MG TABLET.EC PO SCH (06:51)
[2018-08-15] MEDS: NORMAL SALINE 1,000 ML IV PRN (06:51)
[2018-08-15] MEDS: GEMFIBROZIL 600 MG TABLET PO SCH ×2 (09:18→16:23)
[2018-08-15] MEDS: BISACODYL 5 MG TABLET.DR PO PRN (09:19)
[2018-08-15] MEDS: CHOLECALCIFEROL 1,000 UNIT CAPSULE PO SCH (09:19)
[2018-08-15] MEDS: FUROSEMIDE 40 MG TABLET PO SCH (09:20)
[2018-08-15] MEDS: METOPROLOL SUCCINATE 50 MG TABLET.SA PO SCH (09:20)
[2018-08-15] MEDS: LISINOPRIL 2.5 MG TABLET PO SCH (09:20)
[2018-08-15] MEDS: MULTIVITAMINS 1 CAP CAPSULE PO SCH (09:20)
[2018-08-15 12:28] LABS: Albumin * 2.8 gm/dl (3.4-5.0); Anion Gap 17.2 mmol/L (6.8-13.8); BUN/Creatinine Ratio 37.6 (9.0-21.6); Bilirubin, Total 0.7 mg/dL (0.0-1.1); Ca. Corrected For Albumin 9.3 mg/dL (8.4-10.2); Calcium * 8.7 mg/dL (7.9-10.9); Carbon Dioxide 23.7 mmol/L (24-32.6); Potassium 3.9 mmol/L (3.4-4.6); Total Protein 6.5 gm/dL (6.2-8.2)
[2018-08-15] MEDS ORDERED: traMADol HCL 50 MG TABLET PO PRN (13:53)
[2018-08-15] MEDS ORDERED: BISACODYL 10 MG SUPP.RECT RC ONE (13:54)
[2018-08-15] MEDS: tiZANidine HCL 4 MG TABLET PO PRN (14:58)
[2018-08-15] MEDS ORDERED: IBUPROFEN 600 MG TABLET PO PRN (15:05)
[2018-08-15] MEDS ORDERED: ACETAMINOPHEN 500 MG TABLET PO PRN (15:06)
[2018-08-15] MEDS: RIVAROXABAN 15 MG TABLET PO SCH (16:22)
--- NOTE | 2018-08-15 17:12 | PN ---
Subjective - Date and Time Seen Date: 08/15/18 Time: 12:00 Subjective Narrative: She complains of 8 out of 10 back pain. She does not want to take the [place] or because when she took it yesterday because her to have nausea and vomiting. She does not feel comfortable to go home today and would like to stay 1 more day because of the pain being well controlled. She also complains of burning with urination. Objective - Review of Systems Generalized/Overall Review: Denies: Fever Respiratory: Denies: Shortness of Breath Cardiac: Denies: Chest Pain Abdominal: Denies: Abdominal Pain Genitourinary Symptoms: Reports: Burning Misc: All systems neg except as marked - Vitals Vitals: Last Vital Signs Temp 36.1 C 08/15/18 15:00 Pulse 79 08/15/18 15:00 Resp 18 08/15/18 15:00 BP 132/72 08/15/18 15:00 Pulse Ox 95 08/15/18 15:00 - Abnormal Lab Findings Abnormal Lab Findings: Abnormal Lab Results 08/15/18 Range/Units 11:54 Carbon Dioxide 23.7 L (24-32.6) mmol/L Anion Gap 17.2 H (6.8-13.8) mmol/L BUN 76 H (3-23) mg/dL Creatinine 2.02 H (0.4-1.4) mg/dL Est GFR (Non-Af Amer) 25 L (60-130) mL/min BUN/Creatinine Ratio 37.6 H (9.0-21.6) Random Glucose 252 H (70-110) mg/dL ALT 16 L (19-67) U/L Alkaline Phosphatase 176 H (50-170) U/L Albumin 2.8 L (3.4-5.0) gm/dl - Exam Constitutional: Present: Alert, Cooperative, Well developed, Well nourished, Elderly ENT Exam: Present: hearing grossly normal Neck: Present: supple, trachea midline. Absent: lymphadenopathy (R), lymphadenopathy (L) Respiratory: Present: lungs clear, No wheezing. Absent: crackles, rhonchi Cardiovascular/Chest: Present: normal peripheral pulses, regular rate, rhythm, no edema, no murmur Abdomen: Present: Normal bowel sounds, soft, nontender Extremity: Present: normal inspection, no pedal edema Skin Exam: Present: normal color, warm/dry Neurologic: Present: alert Appearance: Present: appropriate appearance Eye contact: Present: cooperative Thoughts: Present: normal mood /affect Assessment/Plan Plan Narrative: 77-year-old female that was admitted with hyponatremia, hyperkalemia, and acute on chronic renal failure that was secondary to poor oral intake. Associated with severe pain from lumbar compression fracture. She continues to have uncontrolled pain and is declining narcotics due to side effects the cost yesterday. She complained of burning with urination but UA is negative. - Problems/Diagnosis (1) Acute renal failure Problem: Acute Qualifiers: Acute renal failure type: unspecified Qualified Code(s): N17.9 - Acute kidney failure, unspecified Narrative: Improved but not back to baseline. Baseline creatinine appears to be between 1.3 and 1.5. 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 technician use Diabetes mellitus complication status: with neurologic complications Diabetes mellitus complication detail: with polyneuropathy Qualified Code(s): E11.42 - Type 2 diabetes mellitus with diabetic polyneuropathy; Z79.4 - detention (current) use of insulin (6) CHF (congestive heart failure) Problem: Chronic Qualifiers: Heart failure type: unspecified Heart failure chronicity: unspecified Qualified Code(s): I50.9 - Heart failure, unspecified (7) Hypertension Problem: Chronic Qualifiers: Hypertension type: essential hypertension Qualified Code(s): I10 - Essential (primary) hypertension (8) Constipation Problem: Acute Narrative: Give Dulcolax suppository and Fleet enema
[2018-08-16] MEDS: tiZANidine HCL 4 MG TABLET PO PRN ×2 (00:37→09:14)
[2018-08-16 00:55] LABS: Urine Bilirubin Negative (NEGATIVE); Urine Blood 250 /ul (NEGATIVE); Urine Ketone Negative (NEGATIVE); Urine Nitrite Negative (NEGATIVE); Urine Protein 30 mg/dL (NEGATIVE); Urine Specific Gravity 1.015 SP.GR. (1.005-1.010); Urine Urobilinogen Normal (NORMAL)
[2018-08-16 01:09] LABS: Urine Appearance Cloudy (CLEAR); Urine Color Yellow
[2018-08-16 01:11] LABS: Urine WBC >50 /hpf (0-5)
[2018-08-16 01:12] LABS: Urine Bacteria 3+; Urine RBC >50 /hpf (0-5)
[2018-08-16 06:10] LABS: Hematocrit 46.2 % (37.0-47.0); Hemoglobin 15.6 gm/dL (12.5-16.0); Mean Cell Volume 101.3 fl (78-100); Mean Corpuscular Hemoglobin 34.2 pg (27-31); Mean Corpuscular Hgb Conc 33.8 g/dl (32-36); Mean Platelet Volume 10.5 fl (8-12.5); Neutrophil # 4.3 K/mm3 (1.3-6.0); Neutrophil % 72.3 % (42-75.0); Platelet Count 206 K/mm3 (150-450); Red Blood Count 4.56 M/mm3 (4.2-5.4); Red Cell Distribution Width 14.4 % (11.5-14.0); White Blood Count 5.9 K/mm3 (4.0-10.5)
[2018-08-16 06:27] LABS: Albumin * 2.5 gm/dl (3.4-5.0); BUN/Creatinine Ratio 36.7 (9.0-21.6); Bilirubin, Total 0.8 mg/dL (0.0-1.1); Ca. Corrected For Albumin 9.7 mg/dL (8.4-10.2); Calcium * 8.8 mg/dL (7.9-10.9); Carbon Dioxide 24.9 mmol/L (24-32.6); Potassium 3.9 mmol/L (3.4-4.6); Total Protein 5.8 gm/dL (6.2-8.2)
[2018-08-16] MEDS: LEVOTHYROXINE SODIUM 175 MCG TABLET PO SCH (07:12)
[2018-08-16] MEDS: PANTOPRAZOLE SODIUM 40 MG TABLET.EC PO SCH (07:12)
[2018-08-16] MEDS ORDERED: HYDROcodone/ACETAMINOPHEN 1 EACH TABLET PO PRN (07:45)
[2018-08-16] MEDS: FUROSEMIDE 40 MG TABLET PO SCH (09:06)
[2018-08-16] MEDS: METOPROLOL SUCCINATE 50 MG TABLET.SA PO SCH (09:07)
[2018-08-16] MEDS: LISINOPRIL 2.5 MG TABLET PO SCH (09:07)
[2018-08-16] MEDS: CHOLECALCIFEROL 1,000 UNIT CAPSULE PO SCH (09:07)
[2018-08-16] MEDS: GEMFIBROZIL 600 MG TABLET PO SCH (09:07)
[2018-08-16] MEDS: MULTIVITAMINS 1 CAP CAPSULE PO SCH (09:07)
--- NOTE | 2018-08-16 10:45 | DS ---
(1) Compression fracture Problem: Acute (2) Hyperkalemia Problem: Resolved (3) Hyponatremia Problem: Resolved (4) Acute on chronic renal failure Problem: Resolved Qualifiers: Chronic kidney disease stage: stage 4 (severe) Description of Stay: Yannick is a 77 yo female admitted for hyponatremia, hyperkalemia, and acute on chronic renal failure with creatinine of 3.5 that is elevated above her baseline of 2. These findings developed due to poor oral intake secondary to lumbar compression fracture causing pain, nausea, and loss of appetite. She was treated with IV fluids and hydrocodone to help with pain. Electrolytes, renal function, and pain improved. She was set up for home discharge but then began to have significant nausea and vomiting. I suspect that they hydrocodone use had caught up with her and was not bothering her GI tract. This was discontinued per the patient's wishes and she was treated with muscle relaxor which she believes helps and does not bother her stomach. She feels the pain is controlled and she does not have nausea or vomiting to day and is able to be discharged to home. She will follow up with Spine in regards to compression fracture. She will be set up for home health with [facility]. Yannick is confined to the home due to lumbar compression fracture and getting out of the home is very taxing. She needs group home for monitoring of pain, oral intake, and medication set up and monitoring. She needs physical therapy for stengthening and treatment of low back pain from compression fracture. The need for home health care skilled services is directly related to the time spent in face-toface with yannick today. Procedures Performed: none Results and Findings: Lab Pending Results 08/11/18 18:20: WBC 7.4, RBC 5.59 H, Hgb 18.8 H, Hct 56.8 H, MCV 101.6 H, MCH 33.6 H, MCHC 33.1, RDW 14.2 H, Plt Count 282, MPV 10.7, Immature Gran % (Auto) 0.80 H, Immature Gran # (Auto) 0.06 H, Neutrophils % 76.9 H, Lymphocytes % 10.3 L, Monocytes % 10.6 H, Eosinophils % 0.5, Basophils % 0.9, Nucleated RBC % 0.0, Neutrophils # 5.7, Lymphocytes # 0.77 L, Monocytes # 0.8, Eosinophils # 0.0, Absolute Basophils 0.1 08/11/18 18:20: Sodium 128 L, Plasma Sodium 130, Potassium 6.8 H* D, Chloride 90 L, Carbon Dioxide 21.4 L, Anion Gap 23.4 H, BUN 113 H D, Creatinine 3.56 H D, Est GFR (Non-Af Amer) 13 L D, BUN/Creatinine Ratio 31.7 H, Random Glucose 234 H, Calcium 10.5, Calcium Adj for Albumin 10.5 H, Total Bilirubin 0.7, AST 21, ALT 13 L, Alkaline Phosphatase 201 H, Total Protein 7.9, Albumin 3.6 08/11/18 18:20: Urine Color Dark yellow, Urine Appearance Clear, Urine pH 5.5, Ur Specific [place] 1.025, Urine Protein 30 H, Urine Glucose (UA) Negative, Urine Ketones Negative, Urine Blood Negative, Urine Nitrate Negative, Urine Bilirubin 1 H, Urine Ictotest Negative, Prot Sulfosalicylic Acd 1+, Urine Uro bilinogen Normal, Ur Leukocyte Esterase Negative, Urine RBC None seen, Urine WBC 0-5, Ur Epithelial Cells 0-5, Amorphous Sediment Few - 1+, Urine Bacteria Trace, Urine Culture Comments Culture to follow 08/11/18 18:20: Sodium 128 L, Creatinine 3.56 H, Renal Failure Index TNP, B- Natriuretic Peptide 54036 H, Ur Random Creatinine 102.1, Ur Random Sodium 6 L, Fraction Sodium Excret 0.0 08/11/18 21:07: Sodium 128 L, Plasma Sodium 129 L, Potassium 5.8 H, Chloride 92 L, Carbon Dioxide 19.7 L, Anion Gap 22.1 H, BUN 115 H, Creatinine 3.40 H, Est GFR (Non-Af Amer) 14 L, BUN/Creatinine Ratio 33.8 H, Random Glucose 146 H D, Calcium 10.6, Calcium Adj for Albumin 10.8 H, Total Bilirubin 0.7, AST 17, ALT 11 L, Alkaline Phosphatase 186 H, Total Protein 7.2, Albumin 3.3 L 08/12/18 08:56: WBC 8.3, RBC 5.17, Hgb 17.5 H, Hct 52.1 H, MCV 100.8 H, MCH 33.8 H, MCHC 33.6, RDW 14.3 H, Plt Count 253, MPV 10.8, Immature Gran % (Auto) 0.60 H, Immature Gran # (Auto) 0.05 H, Neutrophils % 76.4 H, Lymphocytes % 7.2 L, Monocytes % 13.9 H, Eosinophils % 1.3, Basophils % 0.6, Nucleated RBC % 0.0, Neutrophils # 6.4 H, Lymphocytes # 0.60 L, Monocytes # 1.2 H, Eosinophils # 0.1, Absolute Basophils 0.1 08/12/18 08:56: Sodium 131 L, Plasma Sodium 133, Potassium 5.4 H, Chloride 95 L, Carbon Dioxide 20.2 L, Anion Gap 21.2 H, BUN 106 H, Creatinine 3.31 H, Est GFR (Non-Af Amer) 14 L, BUN/Creatinine Ratio 32.0 H, Random Glucose 213 H D, Calcium 9.6, Calcium Adj for Albumin 9.9, Total Bilirubin 0.7, AST 20, ALT 13 L, Al kaline Phosphatase 180 H, Total Protein 6.9, Albumin 3.2 L 08/13/18 05:30: Sodium 135, Plasma Sodium 136, Potassium 4.7 H, Chloride 97, Carbon Dioxide 24.1, Anion Gap 18.6 H, BUN 97 H, Creatinine 2.90 H D, Est GFR (Non-Af Amer) 17 L D, BUN/Creatinine Ratio 33.4 H, Random Glucose 183 H, Calcium 9.0, Calcium Adj for Albumin 9.5, Total Bilirubin 0.8, AST 18, ALT 15 L, Alkalin e Phosphatase 177 H, Total Protein 6.7, Albumin 3.0 L 08/14/18 06:50: WBC 7.9, RBC 5.03, Hgb 17.0 H, Hct 50.6 H, MCV 100.6 H, MCH 33.8 H, MCHC 33.6, RDW 14.3 H, Plt Count 209, MPV 10.8, Immature Gran % (Auto) 0.40, Immature Gran # (Auto) 0.03, Neutrophils % 83.3 H, Lymphocytes % 4.5 L, Monocytes % 9.6 H, Eosinophils % 1.8, Basophils % 0.4, Nucleated RBC % 0.0, Neutrophils # 6.6 H, Lymphocytes # 0.35 L, Monocytes # 0.8, Eosinophils # 0.1, Absolute Basophils 0.0 08/14/18 06:50: Sodium 134, Plasma Sodium 136, Potassium 4.3, Chloride 98, Carbon Dioxide 23.0 L, Anion Gap 17.3 H, BUN 84 H, Creatinine 2.33 H D, Est GFR (Non-Af Amer) 22 L D, BUN/Creatinine Ratio 36.1 H, Random Glucose 217 H, Calcium 8.9, Calcium Adj for Albumin 9.5, Total Bilirubin 0.7, AST 18, ALT 15 L, Alkaline Phosphatase 172 H, Total Protein 6.6, Albumin 2.9 L 08/15/18 11:54: Sodium 135, Plasma Sodium 137, Potassium 3.9, Chloride 98, Carbon Dioxide 23.7 L, Anion Gap 17.2 H, BUN 76 H, Creatinine 2.02 H, Est GFR (Non-Af Amer) 25 L, BUN/Creatinine Ratio 37.6 H, Random Glucose 252 H, Calcium 8.7, Calcium Adj for Albumin 9.3, Total Bilirubin 0.7, AST 17, ALT 16 L, Alkaline Phosphatase 176 H, Total Protein 6.5, Albumin 2.8 L 08/16/18 00:40: Urine Color Yellow, Urine Appearance Cloudy, Urine pH 6.0, Ur Specific [place] 1.015, Urine Protein 30 H, Urine Glucose (UA) Negative, Urine Ketones Negative, Urine Blood 250 H, Urine Nitrate Negative, Urine Bilirubin Negative, Prot Sulfosalicylic Acd 4+ H, Urine Urobilinogen Normal, Ur Leukocyte Esterase 500 H, Urine RBC >50 H, Urine WBC >50 H, Ur Epithelial Cells >25 H, Urine Bacteria 3+ H, Urine Culture Comments No culture indicated 08/16/18 06:00: WBC 5.9 D, RBC 4.56, Hgb 15.6, Hct 46.2, MCV 101.3 H, MCH 34.2 H, MCHC 33.8, RDW 14.4 H, Plt Count 206, MPV 10.5, Immature Gran % (Auto) 0.30, Immature Gran # (Auto) 0.02, Neutrophils % 72.3, Lymphocytes % 7.5 L, Monocytes % 14.1 H, Eosinophils % 5.3 H, Basophils % 0.5, Nucleated RBC % 0.0, Neutrophils # 4.3, Lymphocytes # 0.44 L, Monocytes # 0.8, Eosinophils # 0.3, Absolute Basophils 0.0 08/16/18 06:00: Sodium 134, Plasma Sodium 136, Potassium 3.9, Chloride 98, Carbon Dioxide 24.9, Anion Gap 15.0 H, BUN 72 H, Creatinine 1.96 H, Est GFR (Non-Af Amer) 26 L, BUN/Creatinine Ratio 36.7 H, Random Glucose 197 H, Calcium 8.8, Calcium Adj for Albumin 9.7, Total Bilirubin 0.8, AST 15, ALT 11 L, Alkaline Phosphatase 145, Total Protein 5.8 L, Albumin 2.5 L Discharge Location: Home Disposition: Home Health Service Home Health Agency: [facility] Condition: Good Discharge Activity: Activity as tolerated Discharge Diet: General/regular food Group Home Therapy: Physicial Therapy Referrals: Ericka Perkins MD [Primary Care Provider] - One Week Problem Oriented Discharge Instructions to Patient/Family: Hyponatremia, Spinal Compression Fracture Additional Patient Instructions (free text): -Please make TCM appointment unless fpc discharge. Thank you! Melissa @ [phone]. [facility] at discharge, please call and fax discharge orders to them. Prescriptions (Any new or edited meds): HYDROcodone/ACETAMINOPHEN [Dana 5-325] 2 ea PO Q6H PRN #90 tab PRN Reason: Moderate Pain (Pain Scale 4-6) Complete Home Medications List: Complete Home Medication List: Multivitamins [Multivitamin Dhara] 1 cap PO DAILY 06/18/15 Nitroglycerin [Nitrostat] 0.4 mg SL Q5MIN PRN 06/18/15 Metoprolol Succinate [Toprol Xl] 50 mg PO DAILY 10/08/16 Fluticasone Furoate [Flonase Sensimist] 1 spray NS DAILY PRN 07/10/17 Lisinopril [Zestril] 2.5 mg PO DAILY 07/10/17 cholecalciferol (vitamin D3) 2,000 unit capsule 2,000 unit PO DAILY 11/05/17 furosemide 40 mg tablet 120 mg PO DAILY tab 11/05/17 rivaroxaban 15 mg tablet 15 mg PO QPM #30 tab 01/28/18 gemfibrozil 600 mg tablet 600 mg PO BID #60 tab 02/09/18 insulin human U-100 NPH-regulr 70-30 mix 100 unit/mL subcutaneous susp 30 unit SUBCUT .COMPLEX #60 ml 04/12/18 albuterol sulfate HFA 90 mcg/actuation aerosol inhaler 2 puff IH Q4H PRN #18 g 04/29/18 levothyroxine 175 mcg tablet 175 mcg PO DAILY #90 tab 05/13/18 potassium chloride ER 10 mEq capsule,extended release 20 meq PO DAILY #180 cap 05/13/18 pantoprazole 40 mg tablet,delayed release 40 mg PO DAILY #30 tab 07/23/18 tizanidine 4 mg tablet 4 mg PO Q6H PRN #30 tab 07/29/18 ondansetron HCl 8 mg tablet 8 mg PO DAILY PRN #30 tab 08/10/18 HYDROcodone/ACETAMINOPHEN [Dana 5-325] 2 ea PO Q6H PRN #90 tab 08/14/18
[2018-08-16 14:57] VITALS: BP 106/57
== END 2018-08-16 14:45 | disposition home health service (06) | DRG 543 ==
LOC: ER 17:53 → MS 19:04
PROVIDERS: ADMIT Family Medicine; ATTEND Family Medicine
CPT/HCPCS: 36415; 80053; 81001; 82565; 82570; 83519; 83880; 84295; 84300; 85025; 87077; 87081; 87086; 87186; 93005; 96374; 99285; J2405

== ENCOUNTER 2018-08-18 07:01 | Inpatient (IN) ==
[2018-08-18] MEDS ORDERED: PROCHLORPERAZINE EDISYLATE 5 MG/ML VIAL IV ONE (07:08)
[2018-08-18] MEDS ORDERED: PROCHLORPERAZINE EDISYLATE 5 MG/ML VIAL ONE (07:09)
--- NOTE | 2018-08-18 07:11 | ERNOTE ---
<Vasquez Siddiqi - Last Filed: 08/18/18 07:55> Abdominal HPI - General Time Seen by Provider: 08/18/18 07:05 Source: patient Exam Limitations: no limitations - Immun/Allergies/Home Medications Immunizatons: IMMUNIZATION HX Immunizations Up to Date No History of Influenza Vaccine Yes Hx Pneumococcal Vaccination Yes Allergies/Adverse Reactions: Allergies Penicillins Allergy (Severe, Verified 08/18/18 07:15) HIVES, THROAT SWELLS indomethacin [From Indocin] Adverse Reaction (Intermediate, Verified 08/18/18 07:15) GI BLEED indomethacin sodium [From Indocin] Adverse Reaction (Intermediate, Verified 08/18/18 07:15) GI BLEED ezetimibe [From Zetia] Adverse Reaction (Mild, Verified 08/18/18 07:15) FEELS TINGLY ALL OVER, SIDE PAIN glipizide [From Glucotrol] Adverse Reaction (Mild, Verified 08/18/18 07:15) HAIR FELL OUT metformin HCl [From Glucophage] Adverse Reaction (Mild, Verified 08/18/18 07:15) JUST DOESNT WORK Afwjoso-Wmy-Nvk Reductase Inhibitor Adverse Reaction (Mild, Verified 08/18/18 07:15) MUSCLE ACHES Home Medications: HOME MEDICATIONS Multivitamins [Multivitamin Dhara] 1 cap PO DAILY 06/18/15 [Last Taken 07/09/16 10:00] Nitroglycerin [Nitrostat] 0.4 mg SL Q5MIN PRN 06/18/15 [Last Taken Unknown] Metoprolol Succinate [Toprol Xl] 50 mg PO DAILY 10/08/16 [Last Taken 11/25/17] Fluticasone Furoate [Flonase Sensimist] 1 spray NS DAILY PRN 07/10/17 [Last Taken Unknown] Lisinopril [Zestril] 2.5 mg PO DAILY 07/10/17 [Last Taken 11/25/17] cholecalciferol (vitamin D3) 2,000 unit capsule 2,000 unit PO DAILY 11/05/17 [Last Taken 11/24/17] furosemide 40 mg tablet 120 mg PO DAILY tab 11/05/17 [Last Taken 11/24/17] rivaroxaban 15 mg tablet 15 mg PO QPM #30 tab 01/28/18 [Last Taken Unknown] gemfibrozil 600 mg tablet 600 mg PO BID #60 tab 02/09/18 [Last Taken Unknown] insulin human U-100 NPH-regulr 70-30 mix 100 unit/mL subcutaneous susp 30 unit SUBCUT .COMPLEX #60 ml 04/12/18 [Last Taken Unknown] albuterol sulfate HFA 90 mcg/actuation aerosol inhaler 2 puff IH Q4H PRN #18 g 04/29/18 [Last Taken Unknown] levothyroxine 175 mcg tablet 175 mcg PO DAILY #90 tab 05/13/18 [Last Taken Unknown] potassium chloride ER 10 mEq capsule,extended release 20 meq PO DAILY #180 cap 05/13/18 [Last Taken Unknown] pantoprazole 40 mg tablet,delayed release 40 mg PO DAILY #30 tab 07/23/18 [Last Taken Unknown] ondansetron HCl 8 mg tablet 8 mg PO DAILY PRN #30 tab 08/10/18 [Last Taken Unknown] HYDROcodone/ACETAMINOPHEN [[place] 5-325] 2 ea PO Q6H PRN #90 tab 08/14/18 [Last Taken Unknown] Acetaminophen [Tylenol] 500 mg PO Q4H PRN tab 08/16/18 [Last Taken Unknown] Bisacodyl [Dulcolax] 10 mg PO DAILY PRN tablet. 08/16/18 [Last Taken Unknown] tiZANidine HCL [Tizanidine HCl] 4 mg PO Q6H PRN #30 tab 08/16/18 [Last Taken Unknown] - History of Present Illness Narrative: Patient states that she was in the hospital here last week up until 2 days ago. After going home she continued to have nausea vomiting and constipation. Last night she was unable to hold anything down, she tried Zofran this morning and was still unable to stop vomiting. Timing: getting worse Quality: moderate, severe, fullness Associated Symptoms: Present: loss of appetite Prior Treatment: Present: recently seen, treated by physician, recently hospitalized Review of Systems - Review of Systems Constitutional: Present: chills. Absent: recent illness, fever ENT: Absent: nose congestion, nasal drainage Respiratory: Absent: shortness of breath, cough Cardiology: Absent: chest pain, palpitations Gastrointestinal/Abdominal: Present: See HPI Genitourinary: Absent: frequency, pain, dysuria Musculoskeletal: Present: back pain - Recent compression fracture Skin: Absent: rash Endocrine: Absent: excessive sweating Medical History (Updated 08/16/18 @ 10:45 by Marcelino Guadalupe DO) Back pain Onset Date: Unknown Influenza vaccine refused has already received the vaccine for the season. 01/28/18 ARSEN Christianson Atrial fibrillation Onset Date: Unknown CAD (coronary artery disease) Onset Date: Unknown Cardiomyopathy Onset Date: ~2008 Chronic renal failure Onset Date: 09/02/13 Congestive heart failure Onset Date: Unknown Diabetes mellitus type 2, noninsulin dependent Onset Date: Unknown Hyperlipidemia Onset Date: Unknown Hypertension Onset Date: Unknown Hypothyroidism (acquired) Onset Date: Unknown Candidiasis of mouth Onset Date: 10/07/12 Gout Onset Date: Unknown Herpes zoster Onset Date: ~04/2010 History of GI bleed Onset Date: ~2010 History of polymyalgia rheumatica Onset Date: ~2008 Myocardial infarct, old Onset Date: ~1983 x2 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 History of cholecystectomy Onset Date: ~1995 [place]-lap History of dilation and curettage Onset Date: ~1959 had 2 or 3 History of esophagogastroduodenoscopy (EGD) Onset Date: 11/25/17 11/30/14 [place]-moderate chronic gastritis. H.pylor negative. 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 History of eyelid surgery Onset Date: 01/16/16 [facility]-lift History of implantable cardiac defibrillator (ICD) Onset Date: ~2008 2004 with LV lead addition, 2008 ICDgenertor change with lead revision patient reports being on her fourth ICD History of total abdominal hysterectomy and bilateral salpingo-oophorectomy Onset Date: ~03/1995 Dr Lo Pacemaker Onset Date: ~2002 patient stated she doesnt have this anymore because it didnt work for her. Family History: Family History (Last Reviewed 08/18/18 @ 07:08 by Vasquez Siddiqi DO) Father , age 80's-stomach cancer Cancer stomach Mother , age 80's-strokes Diabetes Hypertension CVA (cerebral vascular accident) Brother , age 51-larynx cancer w/mets to liver Cancer larynx Sister , age 68-pancreatic ca Cancer pancreatic Daughter Multiple myeloma Daughter Osteosarcoma of pelvic bone Social History: Preferred Language Egyptian Smoking Status Never smoker Abuse History No History of abuse Psych History No pertinent hx (Last Updated 08/06/18 @ 15:24 by Ericka Perkins MD) No Social History Section defined Physical Exam - Physical Exam General Appearance: Present: wd/wn, alert, no apparent distress Head Exam: Present: normal inspection, no evidence of injury Ears, Nose, Throat: Present: dry mucous membranes Neck: Present: normal inspection, nontender, supple Respiratory: Present: no respiratory distress, no accessory muscle use, chest nontender, lungs clear Cardiovascular/Chest: Present: regular rate, rhythm, no murmur Gastrointestinal/Abdominal: Present: nondistended - but slightly firm across the upper abdomen between umbilicus and epigastrium, tenderness - mid to upper abdomen bilateral, abnormal bowel sounds - slightly hyperactive. Absent: guarding, rebound Extremity Exam: Present: pedal edema Neurological Exam: Present: alert, oriented, normal mood/affect, no motor/sensory deficits Skin Exam: Present: normal color, warm/dry Lymphatic Exam: Present: no adenopathy Progress - Results and Orders Patient's Lab Results:: I have reviewed the patient's lab results. - Vital Signs Patient's Vital Signs:: I have reviewed the patient's vital signs. - Progress/Reassessment Progress:: Unchanged - Transfer of Care Physician Sign Out: Vasquez Siddiqi Receiving Physician: Alfa Izaguirre Pending Results: Labs, X-ray results Expected Disposition: Discharge Departure Clinical Impression: UTI (urinary tract infection), Pyelonephritis, Intractable vomiting with nausea, Severe back pain - Departure Disposition: Still a patient Condition: Fair Referrals: Ericka Perkins MD [Primary Care Provider] - <Alfa Izaguirre - Last Filed: 08/18/18 11:27> Abdominal HPI - Immun/Allergies/Home Medications Immunizatons: IMMUNIZATION HX Immunizations Up to Date Yes History of Influenza Vaccine Yes Hx Pneumococcal Vaccination Yes Medical History (Updated 06/03/19 @ 10:45 by Marcelino Guadalupe DO) Back pain Onset Date: Unknown Influenza vaccine refused has already received the vaccine for the season. 01/28/18 ARSEN Christianson Atrial fibrillation Onset Date: Unknown CAD (coronary artery disease) Onset Date: Unknown Cardiomyopathy Onset Date: ~2008 Chronic renal failure Onset Date: 09/02/13 Congestive heart failure Onset Date: Unknown Diabetes mellitus type 2, noninsulin dependent Onset Date: Unknown Hyperlipidemia Onset Date: Unknown Hypertension Onset Date: Unknown Hypothyroidism (acquired) Onset Date: Unknown Candidiasis of mouth Onset Date: 10/07/12 Gout Onset Date: Unknown Herpes zoster Onset Date: ~04/2010 History of GI bleed Onset Date: ~2010 History of polymyalgia rheumatica Onset Date: ~2008 Myocardial infarct, old Onset Date: ~1983 x2 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 History of cholecystectomy Onset Date: ~1995 [place]-lap History of dilation and curettage Onset Date: ~1959 had 2 or 3 History of esophagogastroduodenoscopy (EGD) Onset Date: 11/25/17 11/30/14 Beatrice-moderate chronic gastritis. H.pylor negative. 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 History of eyelid surgery Onset Date: 01/16/16 [facility]-lift History of implantable cardiac defibrillator (ICD) Onset Date: ~2008 2004 with LV lead addition, 2008 ICDgenertor change with lead revision patient reports being on her fourth ICD History of total abdominal hysterectomy and bilateral salpingo-oophorectomy Onset Date: ~03/1995 Dr Lo Pacemaker Onset Date: ~2002 patient stated she doesnt have this anymore because it didnt work for her. Family History: Family History (Last Reviewed 08/18/18 @ 07:08 by Vasquez Siddiqi DO) Father , age 80's-stomach cancer Cancer stomach Mother , age 80's-strokes Diabetes Hypertension CVA (cerebral vascular accident) Brother , age 51-larynx cancer w/mets to liver Cancer larynx Sister , age 68-pancreatic ca Cancer pancreatic Daughter Multiple myeloma Daughter Osteosarcoma of pelvic bone Social History: Preferred Language Egyptian Do you have any yazdanism or No cultural preference? Smoking Status Never smoker Have you smoked in the past 12 No months Do you dip or chew tobacco No Abuse History No History of abuse Psych History No pertinent hx Alcohol Use none Drug Use none (Last Updated 08/06/18 @ 15:24 by Ericka Perkins MD) No Social History Section defined Progress - Results and Orders Patient's Lab Results:: I have reviewed the patient's lab results. - Vital Signs Patient's Vital Signs:: I have reviewed the patient's vital signs. Vital Signs: Vital Signs 08/18/18 07:01 08/18/18 07:14 Temperature 36.4 C 36.4 C Pulse Rate 91 91 Respiratory Rate 22 H 22 H Blood Pressure 152/84 H 152/84 H O2 Sat by Pulse Oximetry 94 94 - EKG EKG #1 EKG: NSR EKG read: Interp. by me EKG Comments: Pacemaker. Rate 77. Non-specific changes, no STEMI noted, no clear acute changes from prior EKG. - X-Ray X-Ray #1 X-Ray: abdomen Interpretation: Interp. by me X-ray Comments: I reviewed official radiology report - CT/Ultrasound CT/Ultrasound Narrative: I reviewed official radiology report - Progress/Reassessment Progress Note-Subjective: 08/18/18 11:25 Patient checked out to me at am shift change. Please see Dr Siddiqi's note for full H&P. She had too much nausea and vomiting to take oral contrast. Sx and findings c/w pyelonephritis. IV Abx given. IV pain meds given. D/W Dr Bales who will admit obs. patient agreeable.
[2018-08-18 07:37] LABS: Hematocrit 54.9 % (37.0-47.0); Hemoglobin 18.5 gm/dL (12.5-16.0); Mean Cell Volume 99.1 fl (78-100); Mean Corpuscular Hemoglobin 33.4 pg (27-31); Mean Corpuscular Hgb Conc 33.7 g/dl (32-36); Mean Platelet Volume 10.4 fl (8-12.5); Neutrophil # 7.2 K/mm3 (1.3-6.0); Neutrophil % 81.1 % (42-75.0); Platelet Count 266 K/mm3 (150-450); Red Blood Count 5.54 M/mm3 (4.2-5.4); Red Cell Distribution Width 14.5 % (11.5-14.0); White Blood Count 8.9 K/mm3 (4.0-10.5)
[2018-08-18 07:48] LABS: Albumin * 3.2 gm/dl (3.4-5.0); Anion Gap 18.8 mmol/L (6.8-13.8); BUN/Creatinine Ratio 39.6 (9.0-21.6); Ca. Corrected For Albumin 10.2 mg/dL (8.4-10.2); Calcium * 9.9 mg/dL (7.9-10.9); Carbon Dioxide 23.2 mmol/L (24-32.6); Total Protein 7.6 gm/dL (6.2-8.2)
[2018-08-18 08:34] LABS: Troponin I Less than 0.017 ng/mL (0.00-0.10)
[2018-08-18 08:44] LABS: Magnesium 2.2 mg/dL (1.2-2.8)
[2018-08-18] MEDS ORDERED: DIATRIZOATE MEGLUMINE, SODIUM 30 ML BTL PO ONE (08:47)
[2018-08-18 09:05] LABS: Urine Bilirubin 1 mg/dl (NEGATIVE); Urine Blood 250 /ul (NEGATIVE); Urine Ketone Negative (NEGATIVE); Urine Nitrite Negative (NEGATIVE); Urine Protein 100 mg/dL (NEGATIVE); Urine Urobilinogen Normal (NORMAL); Urine pH 5.5 pH (5.0-7.0)
[2018-08-18 09:14] LABS: Urine Appearance Cloudy (CLEAR); Urine Bacteria 4+; Urine Color Yellow; Urine RBC None Seen /hpf (0-5); Urine WBC 25-50 /hpf (0-5)
[2018-08-18] MEDS ORDERED: LEVOFLOXACIN IN DEXTROSE 5 % 250 MG/50 ML BAG IV SCH (09:30)
[2018-08-18] MEDS ORDERED: MORPHINE SULFATE 2 MG/ML DISP.SYRIN IV ONE (11:20)
[2018-08-18] MEDS ORDERED: FLUTICASONE PROPIONATE 120 SPRAY INHALER NS PRN (12:52)
[2018-08-18] MEDS ORDERED: NITROGLYCERIN 0.4 MG/TAB BTL SL PRN (12:52)
[2018-08-18] MEDS ORDERED: ONDANSETRON HCL 8 MG TABLET PO PRN (12:52)
[2018-08-18] MEDS ORDERED: ALBUTEROL SULFATE 2.5 MG/0.5 ML VIAL.NEB IH PRN (12:52)
[2018-08-18] MEDS ORDERED: tiZANidine HCL 4 MG TABLET PO PRN (12:52)
[2018-08-18] MEDS ORDERED: PROCHLORPERAZINE EDISYLATE 5 MG/ML VIAL IM PRN (13:01)
[2018-08-18] MEDS: DOCUSATE SODIUM 100 MG CAPSULE PO SCH ×2 (13:46→20:34)
[2018-08-18] MEDS: FUROSEMIDE 10 MG/ML VIAL IV SCH ×2 (13:47→20:35)
[2018-08-18] MEDS: FAMOTIDINE 20 MG in DEXTROSE 5 % IN WATER 100 ML IV SCH ×2 (13:47)
[2018-08-18] MEDS: PROCHLORPERAZINE EDISYLATE 5 MG/ML VIAL IV PRN (15:00)
[2018-08-18] MEDS ORDERED: NORMAL SALINE 500 ML IV ONE (16:28)
--- NOTE | 2018-08-18 16:32 | HP ---
Chief Complaint - Chief Complaint Date of Service: 08/18/18 Time of Service: 16:07 Chief Complaint: Ongoing abdominal pain nausea and vomiting for the past several days History of Present Illness: 77-year-old female with past medical history of atrial fibrillation, coronary artery disease, cardiomyopathy, chronic kidney disease stage IV, CHF, type 2 diabetes, gout, hyperlipidemia, hypertension, hypothyroidism, old CT, cholecystectomy, was evaluated in the ER due to worsening diffuse abdominal pain that is worse in the upper abdomen and epigastric region that has been gradually getting worse over the past few days. Patient was hospitalized here at our institution last week and was discharged this past Thursday after being treated for acute kidney injury on chronic kidney disease, patient showed improvement and was discharged home. However patient reports after arriving home her symptoms of nausea and vomiting returned and she was unable to eat. She also developed a diffuse abdominal pain with significant bloating. Patient also complained of worsening constipation that had to be treated with 2 enemas by her home nurse, and after which she had a bowel movement. Patient's pain worsened to the point where she had to be returned to the ER. Abdominal CT was ordered with IV contrast although patient was not able to tolerate the contrast, and it revealed diverticulosis and possible acute pyelonephritis. Patient was also found to have a positive urine culture that is growing Klebsiella from her previous hospitalization. This UTI went on treated due to the fact that the results were reported after her discharge. Patient also also has a positive urinalysis from this morning ER visit. Therefore given these findings patient was admitted once again to our institution. Medical History (Updated 08/18/18 @ 11:59 by Antonio Leon RN) Back pain Onset Date: Unknown Influenza vaccine refused has already received the vaccine for the season. 01/28/18 ARSEN Christianson Atrial fibrillation Onset Date: Unknown CAD (coronary artery disease) Onset Date: Unknown Cardiomyopathy Onset Date: ~2008 Chronic renal failure Onset Date: 09/02/13 Congestive heart failure Onset Date: Unknown Diabetes mellitus type 2, noninsulin dependent Onset Date: Unknown Hyperlipidemia Onset Date: Unknown Hypertension Onset Date: Unknown Hypothyroidism (acquired) Onset Date: Unknown Candidiasis of mouth Onset Date: 10/07/12 Gout Onset Date: Unknown Herpes zoster Onset Date: ~04/2010 History of GI bleed Onset Date: ~2010 History of polymyalgia rheumatica Onset Date: ~2008 Myocardial infarct, old Onset Date: ~1983 x2 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 History of cholecystectomy Onset Date: ~1995 [place]-lap History of dilation and curettage Onset Date: ~1959 had 2 or 3 History of esophagogastroduodenoscopy (EGD) Onset Date: 11/25/17 11/30/14 [place]-moderate chronic gastritis. H.pylor negative. 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 History of eyelid surgery Onset Date: 01/16/[address] [facility]-lift History of implantable cardiac defibrillator (ICD) Onset Date: ~2008 2004 with LV lead addition, 2008 ICDgenertor change with lead revision patient reports being on her fourth ICD History of total abdominal hysterectomy and bilateral salpingo-oophorectomy Onset Date: ~03/1995 Dr Lo Pacemaker Onset Date: ~2002 patient stated she doesnt have this anymore because it didnt work for her. Family History: Family History (Last Reviewed 08/18/18 @ 12:17 by Fe Myles RN) Father , age 80's-stomach cancer Cancer stomach Mother , age 80's-strokes Diabetes Hypertension CVA (cerebral vascular accident) Brother , age 51-larynx cancer w/mets to liver Cancer larynx Sister , age 68-pancreatic ca Cancer pancreatic Daughter Multiple myeloma Daughter Osteosarcoma of pelvic bone Social History: Patient Lives/Resources [facility] Utilized Preferred Language Gabonese Do you have any yazidi or No cultural preference? Smoking Status Never smoker Have you smoked in the past 12 No months Do you dip or chew tobacco No Abuse History No History of abuse Psych History No pertinent hx Alcohol Use none Drug Use none (Last Updated 08/06/18 @ 15:24 by Ericka Perkins MD) No Social History Section defined Peds Patient Hx - Developmental: No Pertinent Hx Peds Patient Hx - Medical: No Pertinent Hx Peds Patient Hx - Cardiac/Respiratory: No Pertinent Hx Peds Patient Hx - Surgical: No Surgical History Patient History - Cancer: No Hx of Cancer Review Of Systems (GEN) - Review of Systems Generalized/Overall Review: Present: Weakness, Fatigue EENTM: Present: No Symptoms Reported Respiratory: Present: No Symptoms Reported Cardiac: Present: No Symptoms Reported Abdominal: Present: Nausea, Vomiting, Abdominal Pain, Constipation Genitourinary: Present: No Symptoms Reported Musculoskeletal: Present: No Symptoms Reported, Back Pain Neurological: Present: No Symptoms Reported Skin: Present: No Symptoms Reported Endocrine: Present: No Symptoms Reported Immunizations: IMMUNIZATION HX Immunizations Up to Date Yes History of Influenza Vaccine Yes Hx Pneumococcal Vaccination Yes Allergies/Adverse Reactions: Allergies Allergy/AdvReac Type Severity Reaction Status Date / Time Penicillins Allergy Severe HIVES, Verified 08/18/18 12:17 THROAT SWELLS indomethacin [From Indocin] AdvReac Intermediate GI BLEED Verified 08/18/18 12:17 indomethacin sodium AdvReac Intermediate GI BLEED Verified 08/18/18 12:17 [From Indocin] ezetimibe [From Zetia] AdvReac Mild FEELS Verified 08/18/18 12:17 TINGLY ALL OVER, SIDE PAIN glipizide [From Glucotrol] AdvReac Mild HAIR FELL Verified 08/18/18 12:17 OUT metformin HCl AdvReac Mild JUST Verified 08/18/18 12:17 [From Glucophage] DOESNT WORK Yebgrhz-Pad-Mwk Reductase AdvReac Mild MUSCLE Verified 08/18/18 12:17 Inhibitor ACHES Home Medications: HOME MEDICATIONS Nitroglycerin [Nitrostat] 0.4 mg SL Q5MIN PRN 06/18/15 [Last Taken Unknown] Metoprolol Succinate [Toprol Xl] 50 mg PO DAILY 10/08/16 [Last Taken 11/25/17] Fluticasone Furoate [Flonase Sensimist] 1 spray NS DAILY PRN 07/10/17 [Last Taken Unknown] Lisinopril [Zestril] 2.5 mg PO DAILY 07/10/17 [Last Taken 11/25/17] cholecalciferol (vitamin D3) 2,000 unit capsule 2,000 unit PO DAILY 11/05/17 [Last Taken 11/24/17] furosemide 40 mg tablet 120 mg PO DAILY tab 11/05/17 [Last Taken 11/24/17] rivaroxaban 15 mg tablet 15 mg PO QPM #30 tab 01/28/18 [Last Taken Unknown] gemfibrozil 600 mg tablet 600 mg PO BID #60 tab 02/09/18 [Last Taken Unknown] insulin human U-100 NPH-regulr 70-30 mix 100 unit/mL subcutaneous susp 30 unit SUBCUT .COMPLEX #60 ml 04/12/18 [Last Taken Unknown] albuterol sulfate HFA 90 mcg/actuation aerosol inhaler 2 puff IH Q4H PRN #18 g 04/29/18 [Last Taken Unknown] levothyroxine 175 mcg tablet 175 mcg PO DAILY #90 tab 05/13/18 [Last Taken Unknown] potassium chloride ER 10 mEq capsule,extended release 20 meq PO DAILY #180 cap 05/13/18 [Last Taken Unknown] pantoprazole 40 mg tablet,delayed release 40 mg PO DAILY #30 tab 07/23/18 [Last Taken Unknown] ondansetron HCl 8 mg tablet 8 mg PO DAILY PRN #30 tab 08/10/18 [Last Taken Unknown] Acetaminophen [Tylenol] 500 mg PO Q4H PRN tab 08/16/18 [Last Taken Unknown] Bisacodyl [Dulcolax] 10 mg PO DAILY PRN tablet. 08/16/18 [Last Taken Unknown] tiZANidine HCL [Tizanidine HCl] 4 mg PO Q6H PRN #30 tab 08/16/18 [Last Taken Unknown] Exam - Exam Vital Signs: Vital Signs - Last Taken Temp 36.8 C 08/18/18 14:46 Pulse 84 08/18/18 14:46 Resp 16 08/18/18 14:46 BP 121/57 08/18/18 14:46 Pulse Ox 95 08/18/18 14:46 Constitutional: Present: Alert, Oriented x3, Cooperative, Well developed, Well nourished, Mild distress, Elderly ENT Exam: Present: normal ENT inspection, hearing grossly normal, pharynx normal, TMs normal Eye Exam: bilateral eye: normal inspection, PERRL, EOMI Neck: Present: non-tender, full range of motion, supple, normal inspection, trachea midline Back Exam: Present: decreased range of motion, other - Thorough examination of back was limited due to significant pain with minor movement Breasts: Present: Exam deferred Respiratory: Present: decreased breath sounds, crackles - Crackles on left lung base Cardiovascular/Chest: Present: normal peripheral pulses, no chest tenderness, no murmur, edema Peripheral Pulses: carotid (R): 3+, carotid (L): 3+, femoral (R): 3+, femoral (L): 3+, dorsalis-pedis (R): 3+, dorsalis-pedis (L): 3+ Abdomen: Present: Normal bowel sounds, soft, obese, tender - Epigastric right upper and left upper tenderness palpation, guarding, rebound tenderness, distended /Rectal: Present: Exam deferred Extremity: Present: normal range of motion, non-tender, normal inspection, no pedal edema, no calf tenderness, normal capillary refill Skin Exam: Present: normal color, warm/dry, no cyanosis Lymphatic: Present: no adenopathy Neurologic: Present: kindergarten assistant II-XII nml as tested, normal cerebellar test, no motor/sensory deficits, alert, normal mood/affect, oriented x 3 Appearance: Present: appropriate appearance, appropriate insight, neat, no memory impairment Eye contact: Present: cooperative, good eye contact, normal speech Thoughts: Present: normal thought pattern, no apparent hallucination Diagnostic Studies: Abnormal Lab Results 08/18/18 08/18/18 08/18/18 Range/Units 07:30 07:30 07:31 RBC 5.54 H (4.2-5.4) M/mm3 Hgb 18.5 H (12.5-16.0) gm/dL Hct 54.9 H (37.0-47.0) % MCH 33.4 H (27-31) pg RDW 14.5 H (11.5-14.0) % Immature Gran % (Auto) 0.60 H (0.001-0.429) % Immature Gran # (Auto) 0.05 H (0.000-0.0310) K/mm3 Neutrophils % 81.1 H (42-75.0) % Lymphocytes % 6.3 L (20-51) % Monocytes % 10.3 H (0.0-9) % Neutrophils # 7.2 H (1.3-6.0) K/mm3 Lymphocytes # 0.56 L (1.5-3.5) k/mm3 Sodium (132-142) mmol/L Chloride (97-106) mmol/L Carbon Dioxide (24-32.6) mmol/L Anion Gap (6.8-13.8) mmol/L BUN (3-23) mg/dL Creatinine (0.4-1.4) mg/dL Est GFR (Non-Af Amer) (60-130) mL/min BUN/Creatinine Ratio (9.0-21.6) Random Glucose (70-110) mg/dL Lactic Acid, Venous 2.2 H* (0.4-2.0) mmol/L ALT (19-67) U/L Alkaline Phosphatase (50-170) U/L C-Reactive Prot, Quant 3.7 H (0.0-0.9) mg/dL B-Natriuretic Peptide (5-550) pg/mL Albumin (3.4-5.0) gm/dl Urine Protein (NEGATIVE) mg/dL Urine Blood (NEGATIVE) /ul Urine Bilirubin (NEGATIVE) mg/dl Prot Sulfosalicylic Acd (0) mg/dL Ur Leukocyte Esterase (NEGATIVE) /ul Urine WBC (0-5) /hpf Urine Bacteria (NONE) 08/18/18 08/18/18 08/18/18 Range/Units 07:31 07:51 08:59 RBC (4.2-5.4) M/mm3 Hgb (12.5-16.0) gm/dL Hct (37.0-47.0) % MCH (27-31) pg RDW (11.5-14.0) % Immature Gran % (Auto) (0.001-0.429) % Immature Gran # (Auto) (0.000-0.0310) K/mm3 Neutrophils % (42-75.0) % Lymphocytes % (20-51) % Monocytes % (0.0-9) % Neutrophils # (1.3-6.0) K/mm3 Lymphocytes # (1.5-3.5) k/mm3 Sodium 131 L (132-142) mmol/L Chloride 93 L (97-106) mmol/L Carbon Dioxide 23.2 L (24-32.6) mmol/L Anion Gap 18.8 H (6.8-13.8) mmol/L BUN 76 H (3-23) mg/dL Creatinine 1.92 H (0.4-1.4) mg/dL Est GFR (Non-Af Amer) 27 L (60-130) mL/min BUN/Creatinine Ratio 39.6 H (9.0-21.6) Random Glucose 261 H D (70-110) mg/dL Lactic Acid, Venous (0.4-2.0) mmol/L ALT 18 L (19-67) U/L Alkaline Phosphatase 198 H (50-170) U/L C-Reactive Prot, Quant (0.0-0.9) mg/dL B-Natriuretic Peptide 7022 H (5-550) pg/mL Albumin 3.2 L (3.4-5.0) gm/dl Urine Protein 100 H (NEGATIVE) mg/dL Urine Blood 250 H (NEGATIVE) /ul Urine Bilirubin 1 H (NEGATIVE) mg/dl Prot Sulfosalicylic Acd 2+ H (0) mg/dL Ur Leukocyte Esterase 100 H (NEGATIVE) /ul Urine WBC 25-50 H (0-5) /hpf Urine Bacteria 4+ H (NONE) 08/18/18 Range/Units 14:20 RBC (4.2-5.4) M/mm3 Hgb (12.5-16.0) gm/dL Hct (37.0-47.0) % MCH (27-31) pg RDW (11.5-14.0) % Immature Gran % (Auto) (0.001-0.429) % Immature Gran # (Auto) (0.000-0.0310) K/mm3 Neutrophils % (42-75.0) % Lymphocytes % (20-51) % Monocytes % (0.0-9) % Neutrophils # (1.3-6.0) K/mm3 Lymphocytes # (1.5-3.5) k/mm3 Sodium (132-142) mmol/L Chloride (97-106) mmol/L Carbon Dioxide (24-32.6) mmol/L Anion Gap (6.8-13.8) mmol/L BUN (3-23) mg/dL Creatinine (0.4-1.4) mg/dL Est GFR (Non-Af Amer) (60-130) mL/min BUN/Creatinine Ratio (9.0-21.6) Random Glucose (70-110) mg/dL Lactic Acid, Venous 2.6 H* (0.4-2.0) mmol/L ALT (19-67) U/L Alkaline Phosphatase (50-170) U/L C-Reactive Prot, Quant (0.0-0.9) mg/dL B-Natriuretic Peptide (5-550) pg/mL Albumin (3.4-5.0) gm/dl Urine Protein (NEGATIVE) mg/dL Urine Blood (NEGATIVE) /ul Urine Bilirubin (NEGATIVE) mg/dl Prot Sulfosalicylic Acd (0) mg/dL Ur Leukocyte Esterase (NEGATIVE) /ul Urine WBC (0-5) /hpf Urine Bacteria (NONE) Laboratory Results WBC 8.9 K/mm3 (4.0-10.5) D 08/18/18 07:31 RBC 5.54 M/mm3 (4.2-5.4) H 08/18/18 07:31 Hgb 18.5 gm/dL (12.5-16.0) H 08/18/18 07:31 Hct 54.9 % (37.0-47.0) H 08/18/18 07:31 MCV 99.1 fl (78-100) 08/18/18 07:31 MCH 33.4 pg (27-31) H 08/18/18 07:31 MCHC 33.7 g/dl (32-36) 08/18/18 07:31 RDW 14.5 % (11.5-14.0) H 08/18/18 07:31 Plt Count 266 K/mm3 (150-450) 08/18/18 07:31 MPV 10.4 fl (8-12.5) 08/18/18 07:31 Immature Gran % (Auto) 0.60 % (0.001-0.429) H 08/18/18 07:31 Immature Gran # (Auto) 0.05 K/mm3 (0.000-0.0310) H 08/18/18 07:31 81.1 % (42-75.0) H 08/18/18 07:31 6.3 % (20-51) L 08/18/18 07:31 10.3 % (0.0-9) H 08/18/18 07:31 1.3 % (0.0-3.0) 08/18/18 07:31 0.4 % (0.0-1.0) 08/18/18 07:31 Nucleated RBC % 0.0 k/mm3 (0-1) 08/18/18 07:31 7.2 K/mm3 (1.3-6.0) H 08/18/18 07:31 0.56 k/mm3 (1.5-3.5) L 08/18/18 07:31 0.9 k/mm3 (0.0-1.0) 08/18/18 07:31 0.1 k/mm3 (0.0-0.7) 08/18/18 07:31 Absolute Basophils 0.0 k/mm3 (0.0-0.1) 08/18/18 07:31 ESR 9 mm/hr (0-15) 08/18/18 07:30 Sodium 131 mmol/L (132-142) L 08/18/18 07:31 134 mmol/L (130-142) 08/18/18 07:31 Potassium 4.0 mmol/L (3.4-4.6) 08/18/18 07:31 Chloride 93 mmol/L (97-106) L 08/18/18 07:31 Carbon Dioxide 23.2 mmol/L (24-32.6) L 08/18/18 07:31 18.8 mmol/L (6.8-13.8) H 08/18/18 07:31 BUN 76 mg/dL (3-23) H 08/18/18 07:31 1.92 mg/dL (0.4-1.4) H 08/18/18 07:31 Est GFR (Non-Af Amer) 27 mL/min (60-130) L 08/18/18 07:31 39.6 (9.0-21.6) H 08/18/18 07:31 261 mg/dL (70-110) H D 08/18/18 07:31 2.6 mmol/L (0.4-2.0) H* 08/18/18 14:20 Calcium 9.9 mg/dL (7.9-10.9) 08/18/18 07:31 Calcium Adj for Albumin 10.2 mg/dL (8.4-10.2) 08/18/18 07:31 Magnesium 2.2 mg/dL (1.2-2.8) 08/18/18 07:50 1.0 mg/dL (0.0-1.1) 08/18/18 07:31 AST 22 U/L (0-48) 08/18/18 07:31 ALT 18 U/L (19-67) L 08/18/18 07:31 198 U/L (50-170) H 08/18/18 07:31 Less than 0.017 ng/mL (0.00-0.10) 08/18/18 07:50 C-Reactive Prot, Quant 3.7 mg/dL (0.0-0.9) H 08/18/18 07:30 B-Natriuretic Peptide 7022 pg/mL (5-550) H 08/18/18 07:51 7.6 gm/dL (6.2-8.2) 08/18/18 07:31 3.2 gm/dl (3.4-5.0) L 08/18/18 07:31 Amylase 33 U/L (25-115) 08/18/18 07:31 73 U/L (73-393) 08/18/18 07:31 Yellow 08/18/18 08:59 Cloudy (CLEAR) 08/18/18 08:59 5.5 pH (5.0-7.0) 08/18/18 08:59 Ur Specific [place] 1.020 SP.GR. (1.005-1.010) 08/18/18 08:59 100 mg/dL (NEGATIVE) H 08/18/18 08:59 Negative mg/dL (NEGATIVE) 08/18/18 08:59 Negative mg/dL (NEGATIVE) 08/18/18 08:59 250 /ul (NEGATIVE) H 08/18/18 08:59 Negative (NEGATIVE) 08/18/18 08:59 1 mg/dl (NEGATIVE) H 08/18/18 08:59 Negative (NEGATIVE) 08/18/18 08:59 Prot Sulfosalicylic Acd 2+ mg/dL (0) H 08/18/18 08:59 Normal EU/dl (NORMAL) 08/18/18 08:59 Ur Leukocyte Esterase 100 /ul (NEGATIVE) H 08/18/18 08:59 None seen /hpf (0-5) 08/18/18 08:59 25-50 /hpf (0-5) H 08/18/18 08:59 Ur Epithelial Cells None seen /hpf (0-5) 08/18/18 08:59 4+ (NONE) H 08/18/18 08:59 Culture to follow 08/18/18 08:59 Assessment/Plan - Narrative Narrative: Patient was evaluated and medical chart was reviewed and decision to admit for a diagnosis of acute pyelonephritis, UTI, moderate dehydration, acute decompensated CHF, and diverticulosis was taken. Patient has signs and symptoms of fluid overload as indicated by a BNP of 7022 and crackles were auscultated on left lung base and patient had 3+ pedal edema, we will treat her with IV diuretics to diurese her. At the moment she is breathing without any difficulty and denies any shortness of breath at rest but develops shortness of breath with minimal exertion. Patient's GFR has remained stable since her last hospitalization at 27, with IV fluid that would normally be administered to addressed her renal failure and moderate dehydration will have to be held due to her fluid overload secondary to her CHF. In the meantime we will treat patient with IV antibiotics to address her UTI and acute pyelonephritis likely secondary to infection with Klebsiella which grew on urine culture, patient will be treated with IV Levaquin since she is allergic to penicillin. All routine medications will be administered during hospitalization, and patient will also be treated with antiemetics for ongoing nausea and vomiting, will attempt oral tolerance with a clear liquid diet once she shows improvement in her nausea. Follow-up labs ordered for tomorrow morning to reevaluate BMP and electrolytes. - Assessment/Plan (1) UTI (urinary tract infection) Problem: Acute (2) Pyelonephritis Problem: Acute (3) Intractable vomiting with nausea Problem: Acute (4) Acute decompensated heart failure Problem: Acute (5) Diverticulosis Problem: Acute (6) Chronic back pain Problem: Chronic (7) Moderate dehydration Problem: Acute (8) Nausea & vomiting Problem: Acute (9) Constipation Problem: Acute
[2018-08-18] MEDS ORDERED: LEVOFLOXACIN IN DEXTROSE 5 % 500 MG/100 ML BAG IV ONE (16:45)
[2018-08-18] MEDS: RIVAROXABAN 15 MG TABLET PO SCH (17:14)
[2018-08-18] MEDS: HUM INSULIN NPH/REG INSULIN HM 100 UNIT/ML VIAL SC SCH (17:15)
[2018-08-18] MEDS: ACETAMINOPHEN 325 MG TABLET PO PRN (20:33)
[2018-08-18] MEDS: GEMFIBROZIL 600 MG TABLET PO SCH (20:34)
[2018-08-19] MEDS: MORPHINE SULFATE 2 MG/ML DISP.SYRIN IV PRN ×2 (00:03→06:54)
[2018-08-19] MEDS: FAMOTIDINE 20 MG in DEXTROSE 5 % IN WATER 100 ML IV SCH ×2 (00:09)
[2018-08-19 05:56] LABS: Hematocrit 50.2 % (37.0-47.0); Hemoglobin 17.2 gm/dL (12.5-16.0); Mean Cell Volume 99.8 fl (78-100); Mean Corpuscular Hemoglobin 34.2 pg (27-31); Mean Corpuscular Hgb Conc 34.3 g/dl (32-36); Mean Platelet Volume 10.7 fl (8-12.5); Neutrophil # 6.1 K/mm3 (1.3-6.0); Neutrophil % 77.4 % (42-75.0); Platelet Count 241 K/mm3 (150-450); Red Blood Count 5.03 M/mm3 (4.2-5.4); Red Cell Distribution Width 14.6 % (11.5-14.0); White Blood Count 7.9 K/mm3 (4.0-10.5)
[2018-08-19 06:23] LABS: Albumin * 2.7 gm/dl (3.4-5.0); BUN/Creatinine Ratio 37.7 (9.0-21.6); Bilirubin, Total 1.1 mg/dL (0.0-1.1); Calcium * 9.3 mg/dL (7.9-10.9); Carbon Dioxide 23.7 mmol/L (24-32.6); Potassium 3.7 mmol/L (3.4-4.6); Total Protein 6.4 gm/dL (6.2-8.2)
[2018-08-19] MEDS: LEVOTHYROXINE SODIUM 175 MCG TABLET PO SCH (07:10)
[2018-08-19] MEDS: ACETAMINOPHEN 325 MG TABLET PO PRN ×2 (09:04→15:26)
[2018-08-19] MEDS: GEMFIBROZIL 600 MG TABLET PO SCH ×2 (09:05→20:40)
[2018-08-19] MEDS: LISINOPRIL 2.5 MG TABLET PO SCH (09:05)
[2018-08-19] MEDS: POTASSIUM CHLORIDE 20 MEQ TABLET.SA PO SCH (09:05)
[2018-08-19] MEDS: METOPROLOL SUCCINATE 50 MG TABLET.SA PO SCH (09:05)
[2018-08-19] MEDS: CHOLECALCIFEROL 1,000 UNIT CAPSULE PO SCH (09:05)
[2018-08-19] MEDS: HUM INSULIN NPH/REG INSULIN HM 100 UNIT/ML VIAL SC SCH ×2 (09:08→17:55)
[2018-08-19] MEDS ORDERED: HUM INSULIN NPH/REG INSULIN HM 100 UNIT/ML VIAL SC SCH (09:15)
[2018-08-19] MEDS: DOCUSATE SODIUM 100 MG CAPSULE PO SCH ×2 (09:16→20:39)
[2018-08-19] MEDS: FUROSEMIDE 10 MG/ML VIAL IV SCH ×2 (09:18→20:41)
[2018-08-19] MEDS ORDERED: HUM INSULIN NPH/REG INSULIN HM 100 UNIT/ML VIAL SC ONE (09:45)
--- NOTE | 2018-08-19 10:15 | PN ---
Subjective - Date and Time Seen Date: 08/19/18 Time: 10:09 Subjective Narrative: I have nausea and vomiting in my back still hurts Objective Objective Narrative: 77-year-old female admitted for acute pyelonephritis, UTI, CHF was evaluated at bedside and was found to be afebrile and in no acute distress. However patient continues to have nausea but has not vomited, attempt at oral intake was made yesterday with a clear liquid diet patient tolerated up to this morning but during rounds she reported increased nausea and a desire to vomit but did not vomit. Patient's family also requested that the dietitian be c onsulted for food preferences in order to make an attempt to progress diet. Therefore dietitian was consulted. In the meantime we will continue with IV antibiotics for her pyelonephritis and UTI as well as pain medication for chronic low back pain. Patient has not had any recurrence of fever or chills and says that she feels better than when she arrived except for the previously mentioned symptoms. - Vitals Vitals: Last Vital Signs Temp 35.8 C L 08/19/18 07:57 Pulse 81 08/19/18 09:55 Resp 16 08/19/18 07:57 BP 119/67 08/19/18 09:18 Pulse Ox 94 08/19/18 07:57 - Abnormal Lab Findings Abnormal Lab Findings: Abnormal Lab Results 08/18/18 08/18/18 08/18/18 Range/Units 07:30 07:30 14:20 Hgb (12.5-16.0) gm/dL Hct (37.0-47.0) % MCH (27-31) pg RDW (11.5-14.0) % Immature Gran % (Auto) (0.001-0.429) % Immature Gran # (Auto) (0.000-0.0310) K/mm3 Neutrophils % (42-75.0) % Lymphocytes % (20-51) % Monocytes % (0.0-9) % Neutrophils # (1.3-6.0) K/mm3 Lymphocytes # (1.5-3.5) k/mm3 Monocytes # (0.0-1.0) k/mm3 Carbon Dioxide (24-32.6) mmol/L Anion Gap (6.8-13.8) mmol/L BUN (3-23) mg/dL Creatinine (0.4-1.4) mg/dL Est GFR (Non-Af Amer) (60-130) mL/min BUN/Creatinine Ratio (9.0-21.6) Random Glucose (70-110) mg/dL Lactic Acid, Venous 2.2 H* 2.6 H* (0.4-2.0) mmol/L C-Reactive Prot, Quant 3.7 H (0.0-0.9) mg/dL B-Natriuretic Peptide (5-550) pg/mL Albumin (3.4-5.0) gm/dl 08/19/18 08/19/18 Range/Units 05:50 05:50 Hgb 17.2 H (12.5-16.0) gm/dL Hct 50.2 H (37.0-47.0) % MCH 34.2 H (27-31) pg RDW 14.6 H (11.5-14.0) % Immature Gran % (Auto) 0.50 H (0.001-0.429) % Immature Gran # (Auto) 0.04 H (0.000-0.0310) K/mm3 Neutrophils % 77.4 H (42-75.0) % Lymphocytes % 6.1 L (20-51) % Monocytes % 14.0 H (0.0-9) % Neutrophils # 6.1 H (1.3-6.0) K/mm3 Lymphocytes # 0.48 L (1.5-3.5) k/mm3 Monocytes # 1.1 H (0.0-1.0) k/mm3 Carbon Dioxide 23.7 L (24-32.6) mmol/L Anion Gap 17.0 H (6.8-13.8) mmol/L BUN 69 H (3-23) mg/dL Creatinine 1.83 H (0.4-1.4) mg/dL Est GFR (Non-Af Amer) 28 L (60-130) mL/min BUN/Creatinine Ratio 37.7 H (9.0-21.6) Random Glucose 192 H (70-110) mg/dL Lactic Acid, Venous (0.4-2.0) mmol/L C-Reactive Prot, Quant (0.0-0.9) mg/dL B-Natriuretic Peptide 7802 H (5-550) pg/mL Albumin 2.7 L (3.4-5.0) gm/dl - Exam Constitutional: Present: Alert, Oriented x3, Cooperative, Well developed, Well nourished, No distress, Elderly, Morbidly obese, Looks Older than stated age ENT Exam: Present: normal ENT inspection, hearing grossly normal, pharynx normal, TMs normal Neck: Present: non-tender, full range of motion, supple, normal inspection, trachea midline Breasts: Present: Exam deferred Respiratory: Present: chest non-tender, lungs clear, normal breath sounds, no respiratory distress, no accessory muscle use, No rales, No wheezing Cardiovascular/Chest: Present: normal peripheral pulses, regular rate, rhythm, no chest tenderness, no gallop, no JVD, no murmur Abdomen: Present: Normal bowel sounds, soft, nontender, nondistended, no rebound tenderness, no hepatospenomegaly, no masses, obese /Rectal: Present: Exam deferred Extremity: Present: normal range of motion, non-tender, normal inspection, no calf tenderness, pedal edema Skin Exam: Present: normal color, warm/dry, no cyanosis Lymphatic: Present: no adenopathy Neurologic: Present: business librarian II-XII nml as tested, normal cerebellar test, no motor/sensory deficits, alert, normal mood/affect Appearance: Present: appropriate appearance, appropriate insight, neat, no memory impairment Eye contact: Present: cooperative, good eye contact, normal speech Thoughts: Present: normal thought pattern, no apparent hallucination Assessment/Plan Plan Narrative: We will continue to treat patient with IV antibiotics and entire medics for her nausea and vomiting, will follow up with recommendations from the dietitian on food preferences and attempt to progress diet later this afternoon. Patient continues to report chronic low back pain so she is being administered pain medications. We will follow-up with labs in the morning. - Problems/Diagnosis (1) UTI (urinary tract infection) Problem: Acute (2) Pyelonephritis Problem: Acute (3) Intractable vomiting with nausea Problem: Acute (4) Acute decompensated heart failure Problem: Acute (5) Diverticulosis Problem: Acute (6) Chronic back pain Problem: Chronic (7) Moderate dehydration Problem: Acute (8) Nausea & vomiting Problem: Acute (9) Constipation Problem: Acute
[2018-08-19] MEDS: PROCHLORPERAZINE EDISYLATE 5 MG/ML VIAL IV PRN (10:18)
[2018-08-19] MEDS: RIVAROXABAN 15 MG TABLET PO SCH (16:38)
[2018-08-19] MEDS: FAMOTIDINE 20 MG TABLET PO SCH (20:40)
[2018-08-20] MEDS: ACETAMINOPHEN 325 MG TABLET PO PRN ×2 (00:34→07:11)
[2018-08-20 06:15] LABS: Albumin * 2.5 gm/dl (3.4-5.0); Anion Gap 17.3 mmol/L (6.8-13.8); BUN/Creatinine Ratio 40.3 (9.0-21.6); Bilirubin, Total 1.1 mg/dL (0.0-1.1); Ca. Corrected For Albumin 10.2 mg/dL (8.4-10.2); Calcium * 9.3 mg/dL (7.9-10.9); Carbon Dioxide 25.1 mmol/L (24-32.6); Potassium 3.4 mmol/L (3.4-4.6); Total Protein 5.8 gm/dL (6.2-8.2)
[2018-08-20] MEDS: HUM INSULIN NPH/REG INSULIN HM 100 UNIT/ML VIAL SC SCH (06:50)
[2018-08-20] MEDS: PROCHLORPERAZINE EDISYLATE 5 MG/ML VIAL IV PRN (07:05)
[2018-08-20] MEDS: LEVOTHYROXINE SODIUM 175 MCG TABLET PO SCH (07:11)
[2018-08-20] MEDS: CHOLECALCIFEROL 1,000 UNIT CAPSULE PO SCH (08:53)
[2018-08-20] MEDS: LISINOPRIL 2.5 MG TABLET PO SCH (08:54)
[2018-08-20] MEDS: DOCUSATE SODIUM 100 MG CAPSULE PO SCH (08:54)
[2018-08-20] MEDS: FAMOTIDINE 20 MG TABLET PO SCH (08:54)
[2018-08-20] MEDS: POTASSIUM CHLORIDE 20 MEQ TABLET.SA PO SCH (08:54)
[2018-08-20] MEDS: GEMFIBROZIL 600 MG TABLET PO SCH (08:55)
[2018-08-20] MEDS: METOPROLOL SUCCINATE 50 MG TABLET.SA PO SCH (08:55)
[2018-08-20] MEDS: FUROSEMIDE 10 MG/ML VIAL IV SCH (08:56)
--- NOTE | 2018-08-20 11:11 | DS ---
(1) UTI (urinary tract infection) Problem: Acute (2) Pyelonephritis Problem: Acute (3) Intractable vomiting with nausea Problem: Acute (4) Acute decompensated heart failure Problem: Resolved (5) Diverticulosis Problem: Acute (6) Chronic back pain Problem: Chronic (7) Moderate dehydration Problem: Resolved (8) Nausea & vomiting Problem: Resolved (9) Constipation Problem: Chronic Description of Stay: 77-year-old female admitted at our institution for acute pyelonephritis and UTI secondary to Klebsiella infection, moderate dehydration, nausea and vomiting, CHF was evaluated at bedside was found to be afebrile and in no acute distress. Patient reports feeling better than when she arrived, she is now sitting up and is more alert and appears stronger than previous bedside exams. Dietitian was consulted yesterday for food preferences and diet was modified per her preferences, she tolerated oral intake without any major issues but still complains of residual nausea. Patient's abdomen was examined and there was no distention noted and she had normal bowel sounds. She reports being constipated a few days before coming to the hospital and did not have adequate bowel movements while hospitalized, therefore patient will be sent home with orders to take MiraLAX and Colace stool softeners to address her constipation. She is also being discharged with physical therapy and home health services that was previously arranged on her prior hospitalization. Patient will be cared for by her nurse and will receive home health from [facility] with a bath aide to help with her activities of daily living. We are also ordering a new walker for her for safe ambulation. Will resume all routine meds and discharge patient home with additional days of p.o. antibiotics to treat her urinary tract infection and bismuth, simethicone ,and MiraLAX for symptom relief. She was instructed to follow-up with her PCP within the next week. Procedures Performed: none Results and Findings: Pending Mircobiology Results 08/18/18 11:28 Blood Blood Culture - Preliminary NO GROWTH 24 HOURS 08/18/18 07:30 Blood Blood Culture - Preliminary NO GROWTH 24 HOURS Lab Pending Results 08/18/18 07:30: Lactic Acid, Venous 2.2 H* 08/18/18 07:30: ESR 9 08/18/18 07:30: C-Reactive Prot, Quant 3.7 H 08/18/18 07:31: WBC 8.9 D, RBC 5.54 H, Hgb 18.5 H, Hct 54.9 H, MCV 99.1, MCH 33.4 H, MCHC 33.7, RDW 14.5 H, Plt Count 266, MPV 10.4, Immature Gran % (Auto) 0.60 H, Immature Gran # (Auto) 0.05 H, Neutrophils % 81.1 H, Lymphocytes % 6.3 L, Monocytes % 10.3 H, Eosinophils % 1.3, Basophils % 0.4, Nucleated RBC % 0.0, Neutrophils # 7.2 H, Lymphocytes # 0.56 L, Monocytes # 0.9, Eosinophils # 0.1, Absolute Basophils 0.0 08/18/18 07:31: Sodium 131 L, Plasma Sodium 134, Potassium 4.0, Chloride 93 L, Carbon Dioxide 23.2 L, Anion Gap 18.8 H, BUN 76 H, Creatinine 1.92 H, Est GFR (Non-Af Amer) 27 L, BUN/Creatinine Ratio 39.6 H, Random Glucose 261 H D, Calcium 9.9, Calcium Adj for Albumin 10.2, Total Bilirubin 1.0, AST 22, ALT 18 L, Alkaline Phosphatase 198 H, Total Protein 7.6, Albumin 3.2 L, Amylase 33, Lipase 73 08/18/18 07:50: Magnesium 2.2, Troponin I Less than 0.017 08/18/18 07:51: B-Natriuretic Peptide 7022 H 08/18/18 08:59: Urine Color Yellow, Urine Appearance Cloudy, Urine pH 5.5, Ur Specific Mallard 1.020, Urine Protein 100 H, Urine Glucose (UA) Negative, Urine Ketones Negative, Urine Blood 250 H, Urine Nitrate Negative, Urine Bilirubin 1 H, Urine Ictotest Negative, Prot Sulfosalicylic Acd 2+ H, Urine Urobilinogen Normal, Ur Leukocyte Esterase 100 H, Urine RBC None seen, Urine WBC 25-50 H, Ur Epithelial Cells None seen, Urine Bacteria 4+ H, Urine Culture Comments Culture to follow 08/18/18 14:20: Lactic Acid, Venous 2.6 H* 08/19/18 05:50: WBC 7.9, RBC 5.03, Hgb 17.2 H, Hct 50.2 H, MCV 99.8, MCH 34.2 H, MCHC 34.3, RDW 14.6 H, Plt Count 241, MPV 10.7, Immature Gran % (Auto) 0.50 H, Immature Gran # (Auto) 0.04 H, Neutrophils % 77.4 H, Lymphocytes % 6.1 L, Monocytes % 14.0 H, Eosinophils % 1.5, Basophils % 0.5, Nucleated RBC % 0.0, Neutrophils # 6.1 H, Lymphocytes # 0.48 L, Monocytes # 1.1 H, Eosinophils # 0.1, Absolute Basophils 0.0 08/19/18 05:50: Sodium 135, Plasma Sodium 136, Potassium 3.7, Chloride 98, Carbon Dioxide 23.7 L, Anion Gap 17.0 H, BUN 69 H, Creatinine 1.83 H, Est GFR (Non-Af Amer) 28 L, BUN/Creatinine Ratio 37.7 H, Random Glucose 192 H, Calcium 9.3, Calcium Adj for Albumin 10.0, Total Bilirubin 1.1, AST 19, ALT 19, Alkaline Phosphatase 161, B-Natriuretic Peptide 7802 H, Total Protein 6.4, Albumin 2.7 L 08/20/18 05:10: Sodium 140, Plasma Sodium 140, Potassium 3.4, Chloride 101, Carbon Dioxide 25.1, Anion Gap 17.3 H, BUN 60 H, Creatinine 1.49 H, Est GFR (Non-Af Amer) 36 L D, BUN/Creatinine Ratio 40.3 H, Random Glucose 78 D, Calcium 9.3, Calcium Adj for Albumin 10.2, Total Bilirubin 1.1, AST 22, ALT 17 L, Alkaline Phosphatase 141, Total Protein 5.8 L, Albumin 2.5 L Discharge Location: Home Disposition: Home Health Service [facility] Condition: Fair Face to Face Encounter completed per CMS Guidelines: No Discharge Activity: Activity as tolerated Discharge Diet: Other - Patient is to continue the diet ordered by the dietitian yesterday which is per her food preferences Referrals: Ericka Perkins MD [Primary Care Provider] - Additional Patient Instructions (free text): -TCM appointment is already scheduled on August with Dr. Perkins. Thank you! Melissa @ ext:[phone]. [facility] ongoing, please call and fax discharge orders to them. Prescriptions (Any new or edited meds): Simethicone [Anti-Gas] 180 mg PO BID PRN 30 Days capsule PRN Reason: Gas Bismuth Subsalicylate [Digestive Relief] 262 mg PO TID PRN #120 oral.susp PRN Reason: Indigestion Levofloxacin [Levaquin] 750 mg PO Q48H 10 Days #5 tablet Polyethylene Glycol 3350 [Miralax] 17 gm PO DAILY PRN #2 bottle PRN Reason: Constipation Complete Home Medications List: Complete Home Medication List: Nitroglycerin [Nitrostat] 0.4 mg SL Q5MIN PRN 06/18/15 Metoprolol Succinate [Toprol Xl] 50 mg PO DAILY 10/08/16 Fluticasone Furoate [Flonase Sensimist] 1 spray NS DAILY PRN 07/10/17 Lisinopril [Zestril] 2.5 mg PO DAILY 07/10/17 cholecalciferol (vitamin D3) 2,000 unit capsule 2,000 unit PO DAILY 11/05/17 furosemide 40 mg tablet 120 mg PO DAILY tab 11/05/17 rivaroxaban 15 mg tablet 15 mg PO QPM #30 tab 01/28/18 gemfibrozil 600 mg tablet 600 mg PO BID #60 tab 02/09/18 insulin human U-100 NPH-regulr 70-30 mix 100 unit/mL subcutaneous susp 30 unit SUBCUT .COMPLEX #60 ml 04/12/18 albuterol sulfate HFA 90 mcg/actuation aerosol inhaler 2 puff IH Q4H PRN #18 g 04/29/18 levothyroxine 175 mcg tablet 175 mcg PO DAILY #90 tab 05/13/18 potassium chloride ER 10 mEq capsule,extended release 20 meq PO DAILY #180 cap 05/13/18 pantoprazole 40 mg tablet,delayed release 40 mg PO DAILY #30 tab 07/23/18 ondansetron HCl 8 mg tablet 8 mg PO DAILY PRN #30 tab 08/10/18 Acetaminophen [Tylenol] 500 mg PO Q4H PRN tab 08/16/18 Bisacodyl [Dulcolax] 10 mg PO DAILY PRN tablet. 08/16/18 tiZANidine HCL [Tizanidine HCl] 4 mg PO Q6H PRN #30 tab 08/16/18 Bismuth Subsalicylate [Digestive Relief] 262 mg PO TID PRN #120 oral.susp 08/20/18 Levofloxacin [Levaquin] 750 mg PO Q48H 10 Days #5 tablet 08/20/18 Polyethylene Glycol 3350 [Miralax] 17 gm PO DAILY PRN #2 bottle 08/20/18 Simethicone [Anti-Gas] 180 mg PO BID PRN 30 Days capsule 08/20/18
[2018-08-20 13:04] VITALS: BP 141/72
[2018-08-20] MEDS ORDERED: LEVOFLOXACIN IN DEXTROSE 5 % 750 MG/150 ML BAG IV SCH (16:45)
== END 2018-08-20 13:40 | disposition home health service (06) | DRG 690 ==
LOC: ER 07:01 → MS 07:01
PROVIDERS: ADMIT Family Medicine; ATTEND Family Medicine
DX: N18.9 Chronic kidney disease, unspecified; Z79.84 Long term (current) use of oral hypoglycemic drugs; E86.0 Dehydration; M54.9 Dorsalgia, unspecified; I42.9 Cardiomyopathy, unspecified; B96.20 Unspecified Escherichia coli [E. coli] as the cause of diseases classified elsewhere; N39.0 Urinary tract infection, site not specified; E03.9 Hypothyroidism, unspecified; B96.1 Klebsiella pneumoniae [K. pneumoniae] as the cause of diseases classified elsewhere; I50.32 Chronic diastolic (congestive) heart failure; N10 Acute pyelonephritis; I25.10 Atherosclerotic heart disease of native coronary artery without angina pectoris; I48.2 Chronic atrial fibrillation; E11.22 Type 2 diabetes mellitus with diabetic chronic kidney disease; N18.4 Chronic kidney disease, stage 4 (severe); I13.0 Hypertensive heart and chronic kidney disease with heart failure and stage 1 through stage 4 chronic kidney disease, or unspecified chronic kidney disease
CPT/HCPCS: 36415; 74019; 74020; 74176; 80053; 81001; 82150; 83519; 83605; 83690; 83735; 83880; 84484; 85025; 85652; 86140; 87040; 87077; 87086; 87186; 93005; 96365; 96375; 97161; 99285

== ENCOUNTER 2018-08-31 10:26 | Observation (INO) ==
--- NOTE | 2018-08-31 11:21 | ERNOTE ---
Lower Extremity HPI - Narrative Date of Service: 08/31/18 - General Lower Extremities Pain: leg: bilateral, foot: bilateral Time Seen by Provider: 08/31/18 11:03 Source: patient, RN/MD, RN notes reviewed, old records Exam Limitations: no limitations - Immun/Allergies/Home Medications Immunizations: IMMUNIZATION HX Immunizations Up to Date Yes History of Influenza Vaccine Yes Hx Pneumococcal Vaccination Yes Allergies/Adverse Reactions: Allergies Allergy/AdvReac Type Severity Reaction Status Date / Time Penicillins Allergy Severe HIVES, Verified 08/31/18 11:00 THROAT SWELLS indomethacin [From Indocin] AdvReac Intermediate GI BLEED Verified 08/31/18 11:00 indomethacin sodium AdvReac Intermediate GI BLEED Verified 08/31/18 11:00 [From Indocin] ezetimibe [From Zetia] AdvReac Mild FEELS Verified 08/31/18 11:00 TINGLY ALL OVER, SIDE PAIN glipizide [From Glucotrol] AdvReac Mild HAIR FELL Verified 08/31/18 11:00 OUT metformin HCl AdvReac Mild JUST Verified 08/31/18 11:00 [From Glucophage] DOESNT WORK Suvkphl-Qli-Imm Reductase AdvReac Mild MUSCLE Verified 08/31/18 11:00 Inhibitor ACHES Home Medications: HOME MEDICATIONS Nitroglycerin [Nitrostat] 0.4 mg SL Q5MIN PRN 06/18/15 [Last Taken Unknown] Metoprolol Succinate [Toprol Xl] 50 mg PO DAILY 10/08/16 [Last Taken 11/25/17] Fluticasone Furoate [Flonase Sensimist] 1 spray NS DAILY PRN 07/10/17 [Last Taken Unknown] Lisinopril [Zestril] 2.5 mg PO DAILY 07/10/17 [Last Taken 11/25/17] cholecalciferol (vitamin D3) 2,000 unit capsule 2,000 unit PO DAILY 11/05/17 [Last Taken 11/24/17] furosemide 40 mg tablet 120 mg PO DAILY tab 11/05/17 [Last Taken 11/24/17] rivaroxaban 15 mg tablet 15 mg PO QPM #30 tab 01/28/18 [Last Taken Unknown] insulin human U-100 NPH-regulr 70-30 mix 100 unit/mL subcutaneous susp 30 unit SUBCUT .COMPLEX #60 ml 04/12/18 [Last Taken Unknown] albuterol sulfate HFA 90 mcg/actuation aerosol inhaler 2 puff IH Q4H PRN #18 g 04/29/18 [Last Taken Unknown] pantoprazole 40 mg tablet,delayed release 40 mg PO DAILY #30 tab 07/23/18 [Last Taken Unknown] ondansetron HCl 8 mg tablet 8 mg PO DAILY PRN #30 tab 08/10/18 [Last Taken Unknown] Acetaminophen [Tylenol] 500 mg PO Q4H PRN tab 08/16/18 [Last Taken Unknown] Bisacodyl [Dulcolax] 10 mg PO DAILY PRN tablet. 08/16/18 [Last Taken Unknown] tiZANidine HCL [Tizanidine HCl] 4 mg PO Q6H PRN #30 tab 08/16/18 [Last Taken Unknown] Bismuth Subsalicylate [Digestive Relief] 262 mg PO TID PRN #120 oral.susp 08/20/18 [Last Taken Unknown] Polyethylene Glycol 3350 [Miralax] 17 gm PO DAILY PRN #2 bottle 08/20/18 [Last Taken Unknown] Simethicone [Anti-Gas] 180 mg PO BID PRN 30 Days cap 08/20/18 [Last Taken Unknown] levothyroxine 175 mcg tablet 175 mcg PO DAILY #90 tab 08/23/18 [Last Taken Unknown] prochlorperazine maleate 5 mg tablet 5 mg PO Q8H PRN #20 tab 08/23/18 [Last Taken Unknown] nystatin 100,000 unit/mL oral suspension 2 ml BC QID 7 Days #56 ml 08/27/18 [Last Taken Unknown] gemfibrozil 600 mg tablet 600 mg PO BID #60 tab 08/30/18 [Last Taken Unknown] potassium chloride ER 10 mEq capsule,extended release 20 meq PO DAILY #180 cap 08/30/18 [Last Taken Unknown] - History of Present Illness Narrative: Yannick is a 77 year old female who was initially brought from home by her son to see her PCP for bilateral lower extremity edema with large weeping blisters, but was sent to the ED due to the severity of her condition. She was recently hospitalized for pyelonephritis. She went home on Levaquin, which she finished 3 days ago. Her legs have been swelling for 4 days, with the blisters appearing 2 days ago. She denies fevers or chills. She reports that this has happened to her in the past. She required IV Lasix for several days for the swelling and weeping to improve. 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 Denies: weakness, chest pain Prior Treament: Reports: recently seen, recently hospitalized, similar symptoms before. Denies: currently on antibiotics Review of Systems - Review of Systems Constitutional: Present: recent illness. Absent: fever, chills EYE: Present: no symptoms reported ENT: Present: no symptoms reported Respiratory: Absent: shortness of breath, cough Cardiology: Present: edema. Absent: chest pain, syncope, claudication Gastrointestinal/Abdominal: Absent: vomiting, diarrhea Genitourinary: Absent: dysuria, decreased urinary output Musculoskeletal: Absent: muscle pain, joint pain Skin: Present: lesions, change in color. Absent: rash Neurological: Present: See HPI Endocrine: Present: no symptoms reported Hematologic/Lymphatic: Absent: easy bruising, easy bleeding Psych: Present: no symptoms reported Medical History (Updated 08/31/18 @ 14:34 by Iveth Rae NP) Back pain Onset Date: Unknown Influenza vaccine refused has already received the vaccine for the season. 01/28/18 ARSEN Christianson Atrial fibrillation Onset Date: Unknown CAD (coronary artery disease) Onset Date: Unknown Cardiomyopathy Onset Date: ~2008 Chronic renal failure Onset Date: 09/02/13 Congestive heart failure Onset Date: Unknown Diabetes mellitus type 2, noninsulin dependent Onset Date: Unknown Hyperlipidemia Onset Date: Unknown Hypertension Onset Date: Unknown Hypothyroidism (acquired) Onset Date: Unknown Candidiasis of mouth Onset Date: 10/07/12 Gout Onset Date: Unknown Herpes zoster Onset Date: ~04/2010 History of GI bleed Onset Date: ~2010 History of polymyalgia rheumatica Onset Date: ~2008 Myocardial infarct, old Onset Date: ~1983 x2 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 History of cholecystectomy Onset Date: ~1995 [place]-lap History of dilation and curettage Onset Date: ~1959 had 2 or 3 History of esophagogastroduodenoscopy (EGD) Onset Date: 11/25/17 11/30/14 [place]-moderate chronic gastritis. H.pylor negative. 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 History of eyelid surgery Onset Date: 01/16/16 UI-lift History of implantable cardiac defibrillator (ICD) Onset Date: ~2008 2004 with LV lead addition, 2008 ICDgenertor change with lead revision patient reports being on her fourth ICD History of total abdominal hysterectomy and bilateral salpingo-oophorectomy Onset Date: ~03/1995 Dr Lo Pacemaker Onset Date: ~2002 patient stated she doesnt have this anymore because it didnt work for her. Family History: Family History (Last Reviewed 08/31/18 @ 11:19 by Iveth Rae NP) Father , age 80's-stomach cancer Cancer stomach Mother , age 80's-strokes Diabetes Hypertension CVA (cerebral vascular accident) Brother , age 51-larynx cancer w/mets to liver Cancer larynx Sister , age 68-pancreatic ca Cancer pancreatic Daughter Multiple myeloma Daughter Osteosarcoma of pelvic bone Social History: Preferred Language Malian Do you have any faith or No cultural preference? Smoking Status Never smoker Abuse History No History of abuse Psych History No pertinent hx Alcohol Use none (Last Updated 08/23/18 @ 12:15 by Ericka Perkins MD) No Social History Section defined Physical Exam - Physical Exam General Appearance: Present: wd/wn, alert, mild distress Head Exam: Present: normal inspection Eye Exam: Normal inspection: bilateral Ears, Nose, Throat: Present: normal ENT inspection Neck: Present: normal inspection, nontender, supple Respiratory: Present: no respiratory distress, normal breath sounds, no access ory muscle use, lungs clear Cardiovascular/Chest: Present: regular rate, rhythm Peripheral Pulses: N=norm/S=strong/W=weak/B=bound/A=absent: Dorsalis-pedis (R): Weak, Dorsalis-pedis (L): Weak Gastrointestinal/Abdominal: Present: nontender, nondistended, soft Extremity Exam: Present: non-tender, normal range of motion, extremity edema - Bilateral lower legs, ankles and feet, 4+ pitting Neurological Exam: Present: alert, oriented, normal mood/affect. Absent: no motor/sensory deficits - chronic sensory defecit in lower legs and feet Skin Exam: Present: pallor, other - mild erythema and warmth to lower legs and feet, several large weeping blisters present with clear kirt fluid Progress - Results and Orders Patient's Lab Results:: I have reviewed the patient's lab results. - Vital Signs Patient's Vital Signs:: I have reviewed the patient's vital signs. Vital Signs: Vital Signs 08/31/18 10:58 Temperature 36.2 C Pulse Rate 76 Respiratory Rate 16 Blood Pressure 133/76 O2 Sat by Pulse Oximetry 94 - Progress/Reassessment Chief Complaint: Foot Injury/Pain Progress:: Unchanged Progress Note-Subjective: Lactic acid mildly elevated at 2.7, normal WBC with left shift, no SIRS criteria CHF is stable - no congestion on CXR and BNP is in her usual range Renal function is severely impaired but this is her baseline as well Cath UA still shows 1+ bacteria despite recent treatment for pyelonephritis The lower extremity edema is much worse than her usual. This along with the weeping blisters have made it virtually impossible for her to get around at home. The etiology of this is somewhat unclear, a culture was obtained from the largest of the wounds on the dorsal right foot. Blood and urine cultures are also pending, as well as her repeat lactate. Dr. Reilly was contacted and the patient was admitted to observation status. Departure Clinical Impression: Generalized weakness, Lactic acidosis - Departure Disposition: Still a patient Condition: Stable
[2018-08-31 11:51] LABS: Hematocrit 55.8 % (37.0-47.0); Hemoglobin 19.2 gm/dL (12.5-16.0); Mean Cell Volume 98.8 fl (78-100); Mean Corpuscular Hgb Conc 34.4 g/dl (32-36); Mean Platelet Volume 10.5 fl (8-12.5); Neutrophil % 83.3 % (42-75.0); Platelet Count 225 K/mm3 (150-450); Red Blood Count 5.65 M/mm3 (4.2-5.4); Red Cell Distribution Width 14.6 % (11.5-14.0); White Blood Count 9.6 K/mm3 (4.0-10.5)
[2018-08-31 12:53] LABS: Albumin * 3.1 gm/dl (3.4-5.0); Anion Gap 14.3 mmol/L (6.8-13.8); BUN/Creatinine Ratio 32.4 (9.0-21.6); Bilirubin, Total 1.5 mg/dL (0.0-1.1); Ca. Corrected For Albumin 10.9 mg/dL (8.4-10.2); Calcium * 10.5 mg/dL (7.9-10.9); Carbon Dioxide 31.6 mmol/L (24-32.6); Potassium 3.9 mmol/L (3.4-4.6); Total Protein 7.9 gm/dL (6.2-8.2)
[2018-08-31 12:54] LABS: CRP 14.8 mg/dL (0.0-0.9)
[2018-08-31 13:33] LABS: Urine Bilirubin Negative (NEGATIVE); Urine Ketone Negative (NEGATIVE); Urine Nitrite Negative (NEGATIVE); Urine Protein 30 mg/dL (NEGATIVE); Urine Urobilinogen Normal (NORMAL)
[2018-08-31 13:41] LABS: Urine Appearance Slightly Cloudy (CLEAR); Urine Bacteria 1+; Urine Blood 5 /ul (NEGATIVE); Urine Color Yellow; Urine RBC 0-5 /hpf (0-5); Urine WBC None Seen /hpf (0-5)
[2018-08-31] MEDS ORDERED: ACETAMINOPHEN 500 MG TABLET PO PRN ×2 (19:08→21:39)
[2018-08-31] MEDS ORDERED: NYSTATIN 15 APPL BTL TP ONE (19:39)
[2018-08-31] MEDS: ACETAMINOPHEN 500 MG TABLET PO PRN (19:42)
[2018-08-31] MEDS: NYSTATIN 15 APPL BTL TP SCH (20:13)
[2018-08-31] MEDS ORDERED: NITROGLYCERIN 0.4 MG/TAB BTL SL PRN (21:39)
[2018-08-31] MEDS ORDERED: BISACODYL 5 MG TABLET.DR PO PRN (21:39)
[2018-08-31] MEDS ORDERED: POLYETHYLENE GLYCOL 3350 119 GM BTL PO PRN (21:39)
[2018-08-31] MEDS ORDERED: tiZANidine HCL 4 MG TABLET PO PRN (21:39)
[2018-08-31] MEDS ORDERED: ALBUTEROL SULFATE 60 PUFF INHALER IH PRN (21:39)
[2018-08-31] MEDS ORDERED: traMADol HCL 50 MG TABLET PO PRN (22:15)
--- NOTE | 2018-08-31 22:15 | HP ---
Chief Complaint - Chief Complaint Date of Service: 08/31/18 Time of Service: 21:39 Chief Complaint: redness/blisters bilat LE History of Present Illness: 77-year-old female presented to the ER today after being sent over from her PCP for redness of her lower extremities as well as large blisters that began roughly 2 days ago. Her lower extremity does not bother her other than the swelling and the large blisters, she states that this happens to her when she swells really bad often requiring IV Lasix for a few days. They are not tender nor warm to the touch, there was concerns for possible cellulitis by the treating practitioner in the emergency room so wound and blood cultures were ordered. Patient was not started antibiotics at this time as her CBC showed her to have a normal white count at 9.6 otherwise a left shift at 83.3. Of note patient recently was treated with Levaquin for pyelonephritis which she completed 3 days prior. Side effects from the Levaquin could be the blistering seen on skin at this time as this has been documented to happen. Pyonephritis appears to have resolved as patient does not have any abdominal pain, bladder discomfort, urgency/frequency/burning with urination. No CVA tenderness. Patient does have known radicular symptoms and lower back pain from a compression fracture that she suffered roughly 6 weeks ago. Patient currently on Xarelto for A. fib. Medical History (Updated 08/31/18 @ 14:34 by Iveth Rae NP) Back pain Onset Date: Unknown Influenza vaccine refused has already received the vaccine for the season. 01/28/18 ARSEN Christianson Atrial fibrillation Onset Date: Unknown CAD (coronary artery disease) Onset Date: Unknown Cardiomyopathy Onset Date: ~2008 Chronic renal failure Onset Date: 09/02/13 Congestive heart failure Onset Date: Unknown Diabetes mellitus type 2, noninsulin dependent Onset Date: Unknown Hyperlipidemia Onset Date: Unknown Hypertension Onset Date: Unknown Hypothyroidism (acquired) Onset Date: Unknown Candidiasis of mouth Onset Date: 10/07/12 Gout Onset Date: Unknown Herpes zoster Onset Date: ~04/2010 History of GI bleed Onset Date: ~2010 History of polymyalgia rheumatica Onset Date: ~2008 Myocardial infarct, old Onset Date: ~1983 x2 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 History of cholecystectomy Onset Date: ~1995 Tinguely-lap History of dilation and curettage Onset Date: ~1959 had 2 or 3 History of esophagogastroduodenoscopy (EGD) Onset Date: 11/25/17 11/30/14 [place]ley-moderate chronic gastritis. H.pylor negative. 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 History of eyelid surgery Onset Date: 01/16/16 [facility]-lift History of implantable cardiac defibrillator (ICD) Onset Date: ~2008 2004 with LV lead addition, 2008 ICDgenertor change with lead revision patient reports being on her fourth ICD History of total abdominal hysterectomy and bilateral salpingo-oophorectomy Onset Date: ~03/1995 Dr Lo Pacemaker Onset Date: ~2002 patient stated she doesnt have this anymore because it didnt work for her. Family History: Family History (Last Reviewed 08/31/18 @ 16:02 by Kathy Blackman RN) Father , age 80's-stomach cancer Cancer stomach Mother , age 80's-strokes Diabetes Hypertension CVA (cerebral vascular accident) Brother , age 51-larynx cancer w/mets to liver Cancer larynx Sister , age 68-pancreatic ca Cancer pancreatic Daughter Multiple myeloma Daughter Osteosarcoma of pelvic bone Social History: Patient Lives/Resources With Spouse Utilized Occupation retired Preferred Language [place] Do you have any confucianism or No cultural preference? Smoking Status Former smoker Have you smoked in the past 12 No months Do you dip or chew tobacco No Abuse History No History of abuse Psych History No pertinent hx Alcohol Use none (Last Updated 08/31/18 @ 13:08 by Ericka Perkins MD) No Social History Section defined Review Of Systems (GEN) - Review of Systems Generalized/Overall Review: Present: Weakness - Chronic, worse with recent compression fracture. Absent: Chills, Fever EENTM: Present: No Symptoms Reported Respiratory: Present: No Symptoms Reported Cardiac: Present: Edema. Absent: Chest Pain Abdominal: Present: No Symptoms Reported Genitourinary: Absent: Burning, Itching, Urgency, Frequency Musculoskeletal: Present: Back Pain - Worse since compression fracture Neurological: Present: Other - Radicular pain down her legs Skin: Present: Lesions - Large fluid-filled blisters, Change in Color - Redness in her lower extremities Immunizations: IMMUNIZATION HX Immunizations Up to Date Yes History of Influenza Vaccine Yes Hx Pneumococcal Vaccination Yes Allergies/Adverse Reactions: Allergies Allergy/AdvReac Type Severity Reaction Status Date / Time Penicillins Allergy Severe HIVES, Verified 08/31/18 11:00 THROAT SWELLS indomethacin [From Indocin] AdvReac Intermediate GI BLEED Verified 08/31/18 11:00 indomethacin sodium AdvReac Intermediate GI BLEED Verified 08/31/18 11:00 [From Indocin] ezetimibe [From Zetia] AdvReac Mild FEELS Verified 08/31/18 11:00 TINGLY ALL OVER, SIDE PAIN glipizide [From Glucotrol] AdvReac Mild HAIR FELL Verified 08/31/18 11:00 OUT metformin HCl AdvReac Mild JUST Verified 08/31/18 11:00 [From Glucophage] DOESNT WORK [id number] Reductase AdvReac Mild MUSCLE Verified 08/31/18 11:00 Inhibitor ACHES Home Medications: HOME MEDICATIONS Nitroglycerin [Nitrostat] 0.4 mg SL Q5MIN PRN 06/18/15 [Last Taken Unknown] Metoprolol Succinate [Toprol Xl] 50 mg PO DAILY 10/08/16 [Last Taken 11/25/17] Fluticasone Furoate [Flonase Sensimist] 1 spray NS DAILY PRN 07/10/17 [Last Taken Unknown] Lisinopril [Zestril] 2.5 mg PO DAILY 07/10/17 [Last Taken 11/25/17] cholecalciferol (vitamin D3) 2,000 unit capsule 2,000 unit PO DAILY 11/05/17 [Last Taken 11/24/17] furosemide 40 mg tablet 120 mg PO DAILY tab 11/05/17 [Last Taken 11/24/17] rivaroxaban 15 mg tablet 15 mg PO QPM #30 tab 01/28/18 [Last Taken Unknown] albuterol sulfate HFA 90 mcg/actuation aerosol inhaler 2 puff IH Q4H PRN #18 g 04/29/18 [Last Taken Unknown] pantoprazole 40 mg tablet,delayed release 40 mg PO DAILY #30 tab 07/23/18 [Last Taken Unknown] Acetaminophen [Tylenol] 500 mg PO Q4H PRN tab 08/16/18 [Last Taken Unknown] Bisacodyl [Dulcolax] 10 mg PO DAILY PRN tablet. 08/16/18 [Last Taken Unknown] tiZANidine HCL [Tizanidine HCl] 4 mg PO Q6H PRN #30 tab 08/16/18 [Last Taken Unknown] Bismuth Subsalicylate [Digestive Relief] 262 mg PO TID PRN #120 oral.susp 08/20/18 [Last Taken Unknown] Polyethylene Glycol 3350 [Miralax] 17 gm PO DAILY PRN #2 bottle 08/20/18 [Last Taken Unknown] Simethicone [Anti-Gas] 180 mg PO BID PRN 30 Days cap 08/20/18 [Last Taken Unknown] levothyroxine 175 mcg tablet 175 mcg PO DAILY #90 tab 08/23/18 [Last Taken Unknown] prochlorperazine maleate 5 mg tablet 5 mg PO Q8H PRN #20 tab 08/23/18 [Last Taken Unknown] nystatin 100,000 unit/mL oral suspension 2 ml BC QID 7 Days #56 ml 08/27/18 [Last Taken Unknown] gemfibrozil 600 mg tablet 600 mg PO BID #60 tab 08/30/18 [Last Taken Unknown] potassium chloride ER 10 mEq capsule,extended release 20 meq PO DAILY #180 cap 08/30/18 [Last Taken Unknown] Insul NPH Hu Rec/Ins Rg Hu Rec [Novolin 70/30] 20 unit SUBCUT .COMPLEX 08/31/18 [Last Taken Unknown] Exam - Exam Vital Signs: Vital Signs - Last Taken Temp 36.8 C 08/31/18 18:30 Pulse 74 08/31/18 18:30 Resp 26 H 08/31/18 18:30 BP 136/67 08/31/18 18:30 Pulse Ox 100 08/31/18 18:30 Constitutional: Present: Alert, Oriented x3, Cooperative, Acute distress - Back pain ENT Exam: Present: hearing grossly normal. Absent: nasal congestion, nasal drainage Eye Exam: bilateral eye: normal inspection Neck: Present: non-tender, supple Back Exam: Present: no CVA tenderness, vertebral tenderness - Around L1, L2 Respiratory: Present: chest non-tender, lungs clear, normal breath sounds Cardiovascular/Chest: Present: irregularly irregular, edema - 3+ pitting edema mid shins, weeping Abdomen: Present: Normal bowel sounds, soft, nontender, nondistended. Absent: tender, guarding, rigidity, CVA tenderness Skin Exam: Present: skin rash - Redness bilateral lower extremities up to mid fallon, other - Redness bilateral mid fallon with large fluid-filled clear blisters, as well as 2 large blisters that appear to have bloody tinged fluid, weeping Neurologic: Present: alert, oriented x 3 Appearance: Present: appropriate appearance, appropriate insight Eye contact: Present: cooperative, good eye contact Thoughts: Present: normal thought pattern, normal mood /affect Diagnostic Studies: Abnormal Lab Results 08/31/18 08/31/18 08/31/18 Range/Units 11:35 11:35 11:35 RBC 5.65 H (4.2-5.4) M/mm3 Hgb 19.2 H (12.5-16.0) gm/dL Hct 55.8 H (37.0-47.0) % MCH 34.0 H (27-31) pg RDW 14.6 H (11.5-14.0) % Immature Gran % (Auto) 0.90 H (0.001-0.429) % Immature Gran # (Auto) 0.09 H (0.000-0.0310) K/mm3 Neutrophils % 83.3 H (42-75.0) % Lymphocytes % 3.5 L (20-51) % Monocytes % 10.6 H (0.0-9) % Neutrophils # 8.0 H (1.3-6.0) K/mm3 Lymphocytes # 0.34 L (1.5-3.5) k/mm3 ESR 21 H (0-15) mm/hr Sodium 130 L (132-142) mmol/L Chloride 88 L (97-106) mmol/L Anion Gap 14.3 H (6.8-13.8) mmol/L BUN 58 H (3-23) mg/dL Creatinine 1.79 H (0.4-1.4) mg/dL Est GFR (Non-Af Amer) 29 L (60-130) mL/min BUN/Creatinine Ratio 32.4 H (9.0-21.6) Random Glucose 242 H (70-110) mg/dL Lactic Acid, Venous (0.4-2.0) mmol/L Calcium Adj for Albumin 10.9 H (8.4-10.2) mg/dL Total Bilirubin 1.5 H (0.0-1.1) mg/dL Alkaline Phosphatase 209 H (50-170) U/L C-Reactive Prot, Quant 14.8 H (0.0-0.9) mg/dL B-Natriuretic Peptide 5268 H (5-550) pg/mL Albumin 3.1 L (3.4-5.0) gm/dl Urine Protein (NEGATIVE) mg/dL Urine Blood (NEGATIVE) /ul Urine Bacteria (NONE) 08/31/18 08/31/18 08/31/18 Range/Units 11:35 13:25 14:30 RBC (4.2-5.4) M/mm3 Hgb (12.5-16.0) gm/dL Hct (37.0-47.0) % MCH (27-31) pg RDW (11.5-14.0) % Immature Gran % (Auto) (0.001-0.429) % Immature Gran # (Auto) (0.000-0.0310) K/mm3 Neutrophils % (42-75.0) % Lymphocytes % (20-51) % Monocytes % (0.0-9) % Neutrophils # (1.3-6.0) K/mm3 Lymphocytes # (1.5-3.5) k/mm3 ESR (0-15) mm/hr Sodium (132-142) mmol/L Chloride (97-106) mmol/L Anion Gap (6.8-13.8) mmol/L BUN (3-23) mg/dL Creatinine (0.4-1.4) mg/dL Est GFR (Non-Af Amer) (60-130) mL/min BUN/Creatinine Ratio (9.0-21.6) Random Glucose (70-110) mg/dL Lactic Acid, Venous 2.7 H* 3.4 H* (0.4-2.0) mmol/L Calcium Adj for Albumin (8.4-10.2) mg/dL Total Bilirubin (0.0-1.1) mg/dL Alkaline Phosphatase (50-170) U/L C-Reactive Prot, Quant (0.0-0.9) mg/dL B-Natriuretic Peptide (5-550) pg/mL Albumin (3.4-5.0) gm/dl Urine Protein 30 H (NEGATIVE) mg/dL Urine Blood 5 H (NEGATIVE) /ul Urine Bacteria 1+ H (NONE) Laboratory Results WBC 9.6 K/mm3 (4.0-10.5) 08/31/18 11:35 RBC 5.65 M/mm3 (4.2-5.4) H 08/31/18 11:35 Hgb 19.2 gm/dL (12.5-16.0) H 08/31/18 11:35 Hct 55.8 % (37.0-47.0) H 08/31/18 11:35 MCV 98.8 fl (78-100) 08/31/18 11:35 MCH 34.0 pg (27-31) H 08/31/18 11:35 MCHC 34.4 g/dl (32-36) 08/31/18 11:35 RDW 14.6 % (11.5-14.0) H 08/31/18 11:35 Plt Count 225 K/mm3 (150-450) 08/31/18 11:35 MPV 10.5 fl (8-12.5) 08/31/18 11:35 Immature Gran % (Auto) 0.90 % (0.001-0.429) H 08/31/18 11:35 Immature Gran # (Auto) 0.09 K/mm3 (0.000-0.0310) H 08/31/18 11:35 83.3 % (42-75.0) H 08/31/18 11:35 3.5 % (20-51) L 08/31/18 11:35 10.6 % (0.0-9) H 08/31/18 11:35 1.0 % (0.0-3.0) 08/31/18 11:35 0.7 % (0.0-1.0) 08/31/18 11:35 Nucleated RBC % 0.0 k/mm3 (0-1) 08/31/18 11:35 8.0 K/mm3 (1.3-6.0) H 08/31/18 11:35 0.34 k/mm3 (1.5-3.5) L 08/31/18 11:35 1.0 k/mm3 (0.0-1.0) 08/31/18 11:35 0.1 k/mm3 (0.0-0.7) 08/31/18 11:35 Absolute Basophils 0.1 k/mm3 (0.0-0.1) 08/31/18 11:35 ESR 21 mm/hr (0-15) H 08/31/18 11:35 Sodium 130 mmol/L (132-142) L 08/31/18 11:35 132 mmol/L (130-142) 08/31/18 11:35 Potassium 3.9 mmol/L (3.4-4.6) 08/31/18 11:35 Chloride 88 mmol/L (97-106) L 08/31/18 11:35 Carbon Dioxide 31.6 mmol/L (24-32.6) 08/31/18 11:35 14.3 mmol/L (6.8-13.8) H 08/31/18 11:35 BUN 58 mg/dL (3-23) H 08/31/18 11:35 1.79 mg/dL (0.4-1.4) H 08/31/18 11:35 Est GFR (Non-Af Amer) 29 mL/min (60-130) L 08/31/18 11:35 32.4 (9.0-21.6) H 08/31/18 11:35 242 mg/dL (70-110) H 08/31/18 11:35 3.4 mmol/L (0.4-2.0) H* 08/31/18 14:30 Calcium 10.5 mg/dL (7.9-10.9) 08/31/18 11:35 Calcium Adj for Albumin 10.9 mg/dL (8.4-10.2) H 08/31/18 11:35 1.5 mg/dL (0.0-1.1) H 08/31/18 11:35 AST 39 U/L (0-48) 08/31/18 11:35 ALT 31 U/L (19-67) 08/31/18 11:35 209 U/L (50-170) H 08/31/18 11:35 C-Reactive Prot, Quant 14.8 mg/dL (0.0-0.9) H 08/31/18 11:35 B-Natriuretic Peptide 5268 pg/mL (5-550) H 08/31/18 11:35 7.9 gm/dL (6.2-8.2) 08/31/18 11:35 3.1 gm/dl (3.4-5.0) L 08/31/18 11:35 Yellow 08/31/18 13:25 Slightly cloudy (CLEAR) 08/31/18 13:25 6.0 pH (5.0-7.0) 08/31/18 13:25 Ur Specific [place] 1.010 SP.GR. (1.005-1.010) 08/31/18 13:25 30 mg/dL (NEGATIVE) H 08/31/18 13:25 Negative mg/dL (NEGATIVE) 08/31/18 13:25 Negative mg/dL (NEGATIVE) 08/31/18 13:25 5 /ul (NEGATIVE) H 08/31/18 13:25 Negative (NEGATIVE) 08/31/18 13:25 Negative mg/dl (NEGATIVE) 08/31/18 13:25 Prot Sulfosalicylic Acd Negative mg/dL (0) 08/31/18 13:25 Normal EU/dl (NORMAL) 08/31/18 13:25 Ur Leukocyte Esterase Negative /ul (NEGATIVE) 08/31/18 13:25 0-5 /hpf (0-5) 08/31/18 13:25 None seen /hpf (0-5) 08/31/18 13:25 Ur Epithelial Cells 0-5 /hpf (0-5) 08/31/18 13:25 1+ (NONE) H 08/31/18 13:25 Culture to follow 08/31/18 13:25 Assessment/Plan - Narrative Narrative: 77-year-old female with what appears to be an adverse reaction to Levaquin likely causing the redness and the blisters of her lower extremities. We will hold antibiotics at this time and will monitor if the patients clinical picture worsens tomorrow we will likely start antibiotics. The patient recently completed Levaquin for pyelonephritis so I would hate to start her on antibiotic s if they were not needed. Patient's been afebrile, lower extremities are not warm to touch, blisters almost look like bullous pemphigoid in nature. Consider starting steroids but will also wait on this. Patient states she has had this in the past which resolved with diuresis, the patient does have fairly significant swelling in her lower extremities though her BNP is at baseline as she has no other clinical symptoms for CHF exacerbation which again makes me think this is likely an adverse reaction to the antibiotics. We will continue her Lasix. Patient also has stage IV kidney disease but she is at her baseline with this is well. Lactic acid went from 2.7 up to 3.4 I think this is probably due to cardiorenal syndrome and which she likely will need some IV fluids as well as Lasix to help with this. We will gently fluid resuscitate her with IV fluids at 100 cc an hour. Continue IV Lasix as well. Patient on Xarelto for A. fib. No DVT prophylaxis needed at this time Insulin-dependent diabetesmonitor blood sugars before meals at bedtime. Moderate sliding scale insulin ordered. Will adjust insulin as needed. Consistent carb diet ordered. Patient's main concern at this time is her back pain, continue Tylenol. Patient may benefit from calcitonin for compression fracture. This may be worked up further in outpatient setting as her discomfort is significant and she may benefit from kyphoplasty. Otherwise her vital signs been stable, she is been afebrile. Nurse will call with any questions or concerns. - Assessment/Plan (1) Adverse reaction to antidiabetic drug Problem: Acute (2) Compression fracture Problem: Acute (3) Lactic acidosis Problem: Acute (4) Acute on chronic renal failure Problem: Resolved (5) History of atrial fibrillation Problem: Chronic (6) On rivaroxaban therapy Problem: Acute (7) Insulin dependent diabetes mellitus Problem: Acute
[2018-08-31] MEDS ORDERED: PROCHLORPERAZINE MALEATE 10 MG TABLET PO PRN (22:28)
[2018-08-31] MEDS ORDERED: SIMETHICONE 80 MG TAB.CHEW PO PRN (22:30)
[2018-09-01] MEDS: NORMAL SALINE 1,000 ML IV PRN ×3 (00:43→11:52)
[2018-09-01] MEDS: ACETAMINOPHEN 500 MG TABLET PO PRN (03:16)
[2018-09-01 05:51] LABS: Hematocrit 46.5 % (37.0-47.0); Mean Cell Volume 96.9 fl (78-100); Mean Corpuscular Hemoglobin 33.3 pg (27-31); Mean Corpuscular Hgb Conc 34.4 g/dl (32-36); Mean Platelet Volume 10.2 fl (8-12.5); Neutrophil # 6.3 K/mm3 (1.3-6.0); Neutrophil % 78.4 % (42-75.0); Platelet Count 179 K/mm3 (150-450); Red Cell Distribution Width 14.3 % (11.5-14.0); White Blood Count 8.1 K/mm3 (4.0-10.5)
[2018-09-01 05:57] LABS: Anion Gap 13.1 mmol/L (6.8-13.8); BUN/Creatinine Ratio 33.7 (9.0-21.6); Carbon Dioxide 30.1 mmol/L (24-32.6); Estimated Creat Clear 29.7; Potassium 3.2 mmol/L (3.4-4.6)
[2018-09-01] MEDS ORDERED: ALBUTEROL SULFATE 2.5 MG/0.5 ML VIAL.NEB IH PRN (06:20)
[2018-09-01] MEDS ORDERED: LEVOTHYROXINE SODIUM 175 MCG TABLET PO SCH (07:00)
[2018-09-01] MEDS ORDERED: PANTOPRAZOLE SODIUM 40 MG TABLET.EC PO SCH (07:00)
[2018-09-01] MEDS: INSULIN REGULAR, HUMAN 100 UNITS/ML VIAL SC SCH ×2 (07:35→11:36)
[2018-09-01] MEDS: NYSTATIN 15 APPL BTL TP SCH (08:57)
[2018-09-01] MEDS ORDERED: LISINOPRIL 2.5 MG TABLET PO SCH (09:00)
[2018-09-01] MEDS ORDERED: POTASSIUM CHLORIDE 20 MEQ TABLET.SA PO SCH (09:00)
[2018-09-01] MEDS ORDERED: GEMFIBROZIL 600 MG TABLET PO SCH (09:00)
[2018-09-01] MEDS ORDERED: METOPROLOL SUCCINATE 50 MG TABLET.SA PO SCH (09:00)
[2018-09-01] MEDS ORDERED: FLUTICASONE PROPIONATE 120 SPRAY INHALER NS PRN (09:00)
[2018-09-01] MEDS ORDERED: FUROSEMIDE 40 MG TABLET PO SCH (09:00)
[2018-09-01] MEDS ORDERED: FUROSEMIDE 10 MG/ML VIAL IV SCH (09:00)
[2018-09-01] MEDS ORDERED: CALCITONIN,SALMON,SYNTHETIC 30 SPRAY BTL NS SCH (09:00)
--- NOTE | 2018-09-01 12:10 | DS ---
(1) Adverse reaction to antibiotic Problem: Acute (2) Compression fracture Problem: Acute (3) Lactic acidosis Problem: Acute (4) Acute on chronic renal failure Problem: Resolved (5) History of atrial fibrillation Problem: Chronic (6) On rivaroxaban therapy Problem: Chronic (7) Insulin dependent diabetes mellitus Problem: Chronic Description of Stay: Ms. Gracia is an 77-year-old female who was admitted to the hospital for what appears to be a drug reaction following the usage of Levaquin for a UTI/pyelonephritis recently. She developed large bullae bilaterally in her lower extremities starting from her shins and found sporadically down to her feet area. Initially thought these may be infectious in nature but that did not appear to be the case, she is been afebrile and her white count was normal and remained normal while here. Levaquin does not have a adverse reaction of causing this at times. Patients other chronic medical issues were monitored while here including chronic renal failure with the GFR initially of 29 that turned up to 32 on day of discharge. This is at her baseline. She also had a lactic acidosis that was elevated at 2.7 that initially trended up to 3.4 but repeat labs this morning showed it down to be 2.5. Due to patient's chronic kidney disease and CHF patient had to be gently fluid resuscitated. She also sent have a low potassium at 3.2 on the day of discharge which was replaced. Patient's main concern was her back pain, she was started on calcitonin for compression fracture which should hopefully really help with this issue, expanded the patient that it takes anywhere from 1 to 2 weeks to really start working but to give a try. Patient cannot tolerate narcotics and her only medicine that she does get relief from the Tylenol. Patient has a history of A. fib, she is on Xarelto which was continued. Patient also has a history of insulin-dependent diabetes, no changes were made to her outpatient treatment plan. Procedures Performed: none Results and Findings: Pending Mircobiology Results 08/31/18 11:35 Blood Blood Culture - Preliminary NO GROWTH 24 HOURS 08/31/18 15:30 Foot - Right Wound Culture - Preliminary No Pathogens Isolated 08/31/18 13:25 Urine,Catheterized Urine Culture - Preliminary No Growth Lab Pending Results 08/31/18 11:35: WBC 9.6, RBC 5.65 H, Hgb 19.2 H, Hct 55.8 H, MCV 98.8, MCH 34.0 H, MCHC 34.4, RDW 14.6 H, Plt Count 225, MPV 10.5, Immature Gran % (Auto) 0.90 H, Immature Gran # (Auto) 0.09 H, Neutrophils % 83.3 H, Lymphocytes % 3.5 L, Monocytes % 10.6 H, Eosinophils % 1.0, Basophils % 0.7, Nucleated RBC % 0.0, Neutrophils # 8.0 H, Lymphocytes # 0.34 L, Monocytes # 1.0, Eosinophils # 0.1, Absolute Basophils 0.1 08/31/18 11:35: ESR 21 H 08/31/18 11:35: Sodium 130 L, Plasma Sodium 132, Potassium 3.9, Chloride 88 L, Carbon Dioxide 31.6, Anion Gap 14.3 H, BUN 58 H, Creatinine 1.79 H, Est GFR (Non-Af Amer) 29 L, BUN/Creatinine Ratio 32.4 H, Random Glucose 242 H, Calcium 10.5, Calcium Adj for Albumin 10.9 H, Total Bilirubin 1.5 H, AST 39, ALT 31, Alkaline Phosphatase 209 H, C-Reactive Prot, Quant 14.8 H, B-Natriuretic Peptide 5268 H, Total Protein 7.9, Albumin 3.1 L 08/31/18 11:35: Lactic Acid, Venous 2.7 H* 08/31/18 13:25: Urine Color Yellow, Urine Appearance Slightly cloudy, Urine pH 6.0, Ur Specific [place] 1.010, Urine Protein 30 H, Urine Glucose (UA) Negative, Urine Ketones Negative, Urine Blood 5 H, Urine Nitrate Negative, Urine Bilirubin Negative, Prot Sulfosalicylic Acd Negative, Urine Urobilinogen Normal, Ur Leukocyte Esterase Negative, Urine RBC 0-5, Urine WBC None seen, Ur Epithelial Cells 0-5, Urine Bacteria 1+ H, Urine Culture Comments Culture to follow 08/31/18 14:30: Lactic Acid, Venous 3.4 H* 09/01/18 05:20: WBC 8.1, RBC 4.80, Hgb 16.0, Hct 46.5, MCV 96.9, MCH 33.3 H, MCHC 34.4, RDW 14.3 H, Plt Count 179, MPV 10.2, Immature Gran % (Auto) 0.70 H, Immature Gran # (Auto) 0.06 H, Neutrophils % 78.4 H, Lymphocytes % 4.6 L, Monocytes % 14.0 H, Eosinophils % 1.7, Basophils % 0.6, Nucleated RBC % 0.0, Neutrophils # 6.3 H, Lymphocytes # 0.37 L, Monocytes # 1.1 H, Eosinophils # 0.1, Absolute Basophils 0.1 09/01/18 05:20: Sodium 132, Plasma Sodium 133, Potassium 3.2 L, Chloride 92 L, Carbon Dioxide 30.1, Anion Gap 13.1, BUN 56 H, Creatinine 1.66 H, Est GFR (Non-A f Amer) 32 L, BUN/Creatinine Ratio 33.7 H, Random Glucose 191 H, Calcium 9.0 09/01/18 05:20: Lactic Acid, Venous 2.5 H* Discharge Location: [facility] Disposition: SNF Condition: Stable Level of Care: SNF Discharge Activity: Activity as tolerated Discharge Diet: Consistent carbs Fdc Therapy: Physicial Therapy, Occupation Therapy Referrals: Ericka Perkins MD [Primary Care Provider] - Complete Home Medications List: Complete Home Medication List: Nitroglycerin [Nitrostat] 0.4 mg SL Q5MIN PRN 06/18/15 Metoprolol Succinate [Toprol Xl] 50 mg PO DAILY 10/08/16 Fluticasone Furoate [Flonase Sensimist] 1 spray NS DAILY PRN 07/10/17 Lisinopril [Zestril] 2.5 mg PO DAILY 07/10/17 cholecalciferol (vitamin D3) 2,000 unit capsule 2,000 unit PO DAILY 11/05/17 furosemide 40 mg tablet 120 mg PO DAILY tab 11/05/17 rivaroxaban 15 mg tablet 15 mg PO QPM #30 tab 01/28/18 albuterol sulfate HFA 90 mcg/actuation aerosol inhaler 2 puff IH Q4H PRN #18 g 04/29/18 pantoprazole 40 mg tablet,delayed release 40 mg PO DAILY #30 tab 07/23/18 Acetaminophen [Tylenol] 500 mg PO Q4H PRN tab 08/16/18 Bisacodyl [Dulcolax] 10 mg PO DAILY PRN tablet. 08/16/18 tiZANidine HCL [Tizanidine HCl] 4 mg PO Q6H PRN #30 tab 08/16/18 Bismuth Subsalicylate [Digestive Relief] 262 mg PO TID PRN #120 oral.susp 08/20/18 Polyethylene Glycol 3350 [Miralax] 17 gm PO DAILY PRN #2 bottle 08/20/18 Simethicone [Anti-Gas] 180 mg PO BID PRN 30 Days cap 08/20/18 levothyroxine 175 mcg tablet 175 mcg PO DAILY #90 tab 08/23/18 prochlorperazine maleate 5 mg tablet 5 mg PO Q8H PRN #20 tab 08/23/18 nystatin 100,000 unit/mL oral suspension 2 ml BC QID 7 Days #56 ml 08/27/18 gemfibrozil 600 mg tablet 600 mg PO BID #60 tab 08/30/18 potassium chloride ER 10 mEq capsule,extended release 20 meq PO DAILY #180 cap 08/30/18 Insul NPH Hu Rec/Ins Rg Hu Rec [Novolin 70/30] 20 unit SUBCUT .COMPLEX 08/31/18
--- NOTE | 2018-09-01 14:06 | CONS ---
[facility] - General Date of Service: 09/01/18 Source: patient - History of Present Illness Initial Comments: Patient is a 77 year old female, recently admitted to the hospital for treatment of a suspected reaction to Levaquin, that resulted in blisters, edema and swelling of bilateral lower extremities. The patient was recently diagnosed with pylonephritis, and treated with the Levaquin. Within a few days, she noted multiple fluid filled blisters, edema and redness to the lower extremity. She states that she experienced similar symptoms in the past, and required diuresis for treatment. She describes pain with manipulation of the areas. Her medical history includes stage IV kidney disease, atrial fibrillation, recent vertebral compression fracture, cardiomyopathy, congestive heart failure, diabetes type II, gout, herpes zoster, polymyalgia rheumatica, hyperlipidemia, hypertension and ND. Timing/Duration: changing over time Allergies/Adverse Reactions: Allergies Penicillins Allergy (Severe, Verified 08/31/18 11:00) HIVES, THROAT SWELLS indomethacin [From Indocin] Adverse Reaction (Intermediate, Verified 08/31/18 11:00) GI BLEED indomethacin sodium [From Indocin] Adverse Reaction (Intermediate, Verified 08/31/18 11:00) GI BLEED ezetimibe [From Zetia] Adverse Reaction (Mild, Verified 08/31/18 11:00) FEELS TINGLY ALL OVER, SIDE PAIN glipizide [From Glucotrol] Adverse Reaction (Mild, Verified 08/31/18 11:00) HAIR FELL OUT metformin HCl [From Glucophage] Adverse Reaction (Mild, Verified 08/31/18 11:00) JUST DOESNT WORK [id number]-Ige-Fpq Reductase Inhibitor Adverse Reaction (Mild, Verified 08/31/18 11:00) MUSCLE ACHES Home Medications: Home Medications Medication Instructions Recorded Last Taken Nitroglycerin [Nitrostat] 0.4 mg SL Q5MIN PRN 06/18/15 Unknown Metoprolol Succinate [Toprol Xl] 50 mg PO DAILY 10/08/16 11/25/17 Fluticasone Furoate [Flonase 1 spray NS DAILY PRN 07/10/17 Unknown Sensimist] Lisinopril [Zestril] 2.5 mg PO DAILY 07/10/17 11/25/17 cholecalciferol (vitamin D3) 2,000 2,000 unit PO DAILY 11/05/17 11/24/17 unit capsule furosemide 40 mg tablet 120 mg PO DAILY tab 11/05/17 11/24/17 rivaroxaban 15 mg tablet 15 mg PO QPM #30 tab 01/28/18 Unknown albuterol sulfate HFA 90 2 puff IH Q4H PRN #18 g 04/29/18 Unknown mcg/actuation aerosol inhaler pantoprazole 40 mg tablet,delayed 40 mg PO DAILY #30 tab 07/23/18 Unknown release Acetaminophen [Tylenol] 500 mg PO Q4H PRN tab 08/16/18 Unknown Bisacodyl [Dulcolax] 10 mg PO DAILY PRN tablet. 08/16/18 Unknown tiZANidine HCL [Tizanidine HCl] 4 mg PO Q6H PRN #30 tab 08/16/18 Unknown Bismuth Subsalicylate [Digestive 262 mg PO TID PRN #120 oral.susp 08/20/18 Unknown Relief] Polyethylene Glycol 3350 [Miralax] 17 gm PO DAILY PRN #2 bottle 08/20/18 Unknown Simethicone [Anti-Gas] 180 mg PO BID PRN 30 Days cap 08/20/18 Unknown levothyroxine 175 mcg tablet 175 mcg PO DAILY #90 tab 08/23/18 Unknown prochlorperazine maleate 5 mg 5 mg PO Q8H PRN #20 tab 08/23/18 Unknown tablet nystatin 100,000 unit/mL oral 2 ml BC QID 7 Days #56 ml 08/27/18 Unknown suspension gemfibrozil 600 mg tablet 600 mg PO BID #60 tab 08/30/18 Unknown potassium chloride ER 10 mEq 20 meq PO DAILY #180 cap 08/30/18 Unknown capsule,extended release Insul NPH Hu Rec/Ins Rg Hu Rec 20 unit SUBCUT .COMPLEX 08/31/18 Unknown [Novolin 70/30] Procedures Excision of semilunar cartilage of knee (01/14/06) Replacement of Left Lens with Synthetic Substitute, Percutaneous Approach (06/25/15) Replacement of Right Lens with Synthetic Substitute, Percutaneous Approach (07/09/15) Medications - Medications Current Medications: Current Medications Acetaminophen (Tylenol) 1,000 mg PO Q8H PRN PRN Reason: Pain Stop: 09/30/18 19:38 Last Admin: 09/01/18 03:16 Dose: 1,000 mg Documented by: Calcitonin [place] (Miacalcin Nasal [place]) 1 spray NS DAILY [facility] Stop: 10/01/18 09:01 Last Admin: 09/01/18 08:56 Dose: 1 spray Documented by: Furosemide (Lasix) 40 mg IV BID MICHAEL Stop: 10/01/18 09:01 Last Admin: 09/01/18 08:58 Dose: 40 mg Documented by: Gemfibrozil (Lopid) 600 mg PO BID MICHAEL Stop: 10/01/18 09:01 Last Admin: 09/01/18 08:57 Dose: 600 mg Documented by: Sodium Chloride (Sodium Chloride 0.9%) 1,000 mls @ 100 mls/hr IV .Q10H PRN PRN Reason: HYDRATION Stop: 09/30/18 22:01 Last Admin: 09/01/18 01:52 Dose: 100 mls/hr Documented by: Insulin Human Regular (Humulin R) 0 units SC ACHSINS [facility]; Protocol Stop: 10/01/18 07:01 Last Admin: 09/01/18 11:36 Dose: 8 units Documented by: Levothyroxine Sodium (Synthroid) 175 mcg PO QDAC [facility] Stop: 10/01/18 07:01 Last Admin: 09/01/18 07:20 Dose: 175 mcg Documented by: Lisinopril (Zestril) 2.5 mg PO DAILY [facility] Stop: 10/01/18 09:01 Last Admin: 09/01/18 08:57 Dose: 2.5 mg Documented by: Metoprolol Succinate (Toprol Xl) 50 mg PO DAILY [facility] Stop: 10/01/18 09:01 Last Admin: 09/01/18 08:57 Dose: 50 mg Documented by: Nystatin (Mycostatin Powder) 1 appl TP BID [facility] Stop: 09/30/18 21:01 Last Admin: 09/01/18 08:57 Dose: 1 appl Documented by: Pantoprazole Sodium (Protonix) 40 mg PO QDAC [facility] Stop: 10/01/18 07:01 Last Admin: 09/01/18 07:20 Dose: 40 mg Documented by: Potassium Chloride (K-Dur) 20 meq PO DAILY [facility] Stop: 10/01/18 09:01 Last Admin: 09/01/18 08:57 Dose: 20 meq Documented by: Prochlorperazine Maleate (Compazine) 5 mg PO Q8H PRN PRN Reason: Nausea/Vomitting Stop: 09/30/18 22:29 Last Admin: 08/31/18 23:58 Dose: 5 mg Documented by: Review of Systems - Review of Systems Generalized/Overall Review: Absent: Chills, Fever EENTM: Absent: Nose Congestion Respiratory: Absent: Cough Cardiac: Present: Edema. Absent: Chest Pain Abdominal: Absent: Nausea, Vomiting Musculoskeletal: Present: Joint Pain Neurological: Present: Headache Skin: Present: Lesions Physical Examination - Exam Vital Signs: Vital Signs - Last Taken Temp 36.3 C 09/01/18 12:25 Pulse 75 09/01/18 12:25 Resp 16 09/01/18 12:25 BP 128/68 09/01/18 12:25 Pulse Ox 95 09/01/18 12:25 O2 Oxygen Delivery Method Room Air Constitutional: Present: Alert, Cooperative, No distress ENT Exam: Present: hearing grossly normal Extremity: Present: lower extremity edema - 2+ pitting edema, bilaterally, pedal edema Skin Exam: Present: other - large, fluid filled blister on the dorsal aspect of the right foot. open area on the dorsal aspect of the left foot, as the result of recent blister. moderate amount of serous drainage. small amount of erythema surrounding. - Results and Findings: Lab/Microbiology results last 24 hrs: Abnormal/Pending Laboratory Last 24 HRS 09/01/18 09/01/18 09/01/18 05:20 05:20 05:20 MCH 33.3 H RDW 14.3 H Immature Gran % (Auto) 0.70 H Immature Gran # (Auto) 0.06 H Neutrophils % 78.4 H Lymphocytes % 4.6 L Monocytes % 14.0 H Neutrophils # 6.3 H Lymphocytes # 0.37 L Monocytes # 1.1 H Potassium 3.2 L Chloride 92 L BUN 56 H Creatinine 1.66 H Est GFR (Non-Af Amer) 32 L BUN/Creatinine Ratio 33.7 H Random Glucose 191 H Lactic Acid, Venous 2.5 H* Urine Protein Urine Blood Urine Bacteria 08/31/18 08/31/18 14:30 13:25 MCH RDW Immature Gran % (Auto) Immature Gran # (Auto) Neutrophils % Lymphocytes % Monocytes % Neutrophils # Lymphocytes # Monocytes # Potassium Chloride BUN Creatinine Est GFR (Non-Af Amer) BUN/Creatinine Ratio Random Glucose Lactic Acid, Venous 3.4 H* Urine Protein 30 H Urine Blood 5 H Urine Bacteria 1+ H Culture 08/31/18 12:55 Blood Culture - Preliminary Blood NO GROWTH 24 HOURS 08/31/18 11:35 Blood Culture - Preliminary Blood NO GROWTH 24 HOURS 08/31/18 15:30 Wound Culture - Preliminary Foot - Right No Pathogens Isolated 08/31/18 13:25 Urine Culture - Preliminary Urine,Catheterized No Growth - Assessments/Findings (1) Adverse reaction to antibiotic Problem: Acute (2) Edema extremities Problem: Acute (3) Blisters of multiple sites Diagnosis(s): Due to the size and duration of the fluid filled blister on the right foot, decision was made to open and drain the area. Using clean technique, the skin was cleansed with betadine and rinsed with sterile saline. A #11 blade, was used to open the blister and allow for drainage of the fluid. Patient tolerated the area well. Recommend using Aquacel Ag to the open areas on the right and left dorsal foot. This will be covered with gauze and secured with tape. The dressing should be changed daily, and the area washed thoroughly with soap and water at dressing changes. She would benefit from tubigrip to bilateral lower extremities, to control edema. Thank you for the consult, would be happy to follow the patient in our Clinic, if needed. Problem: Acute
[2018-09-01 14:19] VITALS: BP 122/65
[2018-09-01] MEDS ORDERED: RIVAROXABAN 15 MG TABLET PO SCH (17:00)
== END 2018-09-01 14:09 ==
LOC: MS 10:26 → ER 10:26 → MS 15:45
PROVIDERS: ADMIT Family Medicine; ATTEND Family Medicine
DX: N17.9 Acute kidney failure, unspecified; T50.905A Adverse effect of unspecified drugs, medicaments and biological substances, initial encounter; E87.2 Acidosis
CPT/HCPCS: 36415; 71010; 71045; 80048; 80053; 81001; 83519; 83605; 83880; 85025; 85652; 86140; 87040; 87070; 87077; 87086; 87186; 96365; 96366; 96372; 96375; 97110; 97162; 99285; G0378

== ENCOUNTER 2018-10-27 05:57 | Inpatient (IN) ==
[2018-10-27] MEDS ORDERED: ONDANSETRON HCL/PF 2 MG/ML VIAL IV ONE (06:16)
--- NOTE | 2018-10-27 06:20 | ERNOTE ---
Medical Problem HPI - General Time Seen by Provider: 10/27/18 06:02 Source: patient, EMS Exam Limitations: no limitations - Immun/Allergies/Home Medications Immunizations: IMMUNIZATION HX Immunizations Up to Date Yes History of Influenza Vaccine Yes Hx Pneumococcal Vaccination Yes Allergies/Adverse Reactions: Allergies Penicillins Allergy (Severe, Verified 10/15/18 13:57) HIVES, THROAT SWELLS indomethacin [From Indocin] Adverse Reaction (Intermediate, Verified 10/15/18 1 3:57) GI BLEED indomethacin sodium [From Indocin] Adverse Reaction (Intermediate, Verified 10/15/18 13:57) GI BLEED ezetimibe [From Zetia] Adverse Reaction (Mild, Verified 10/15/18 13:57) FEELS TINGLY ALL OVER, SIDE PAIN glipizide [From Glucotrol] Adverse Reaction (Mild, Verified 10/15/18 13:57) HAIR FELL OUT metformin HCl [From Glucophage] Adverse Reaction (Mild, Verified 10/15/18 13:57) JUST DOESNT WORK Fxxvibu-Vyd-Bde Reductase Inhibitor Adverse Reaction (Mild, Verified 10/15/18 13:57) MUSCLE ACHES levofloxacin [From Levaquin] Adverse Reaction (Verified 10/15/18 13:57) Home Medications: HOME MEDICATIONS Nitroglycerin [Nitrostat] 0.4 mg SL Q5MIN PRN 06/18/15 [Last Taken Unknown] Lisinopril [Zestril] 2.5 mg PO DAILY 07/10/17 [Last Taken 11/25/17] cholecalciferol (vitamin D3) 2,000 unit capsule 2,000 unit PO DAILY 11/05/17 [Last Taken 11/24/17] rivaroxaban 15 mg tablet 15 mg PO QPM #30 tab 01/28/18 [Last Taken Unknown] pantoprazole 40 mg tablet,delayed release 40 mg PO DAILY #30 tab 07/23/18 [Last Taken Unknown] Acetaminophen [Tylenol] 500 mg PO Q4H PRN tab 08/16/18 [Last Taken Unknown] Bisacodyl [Dulcolax] 10 mg PO DAILY PRN tablet. 08/16/18 [Last Taken Unknown] tiZANidine HCL [Tizanidine HCl] 4 mg PO Q6H PRN #30 tab 08/16/18 [Last Taken Unknown] levothyroxine 175 mcg tablet 175 mcg PO DAILY #90 tab 08/23/18 [Last Taken 09/13/18] gemfibrozil 600 mg tablet 600 mg PO BID #60 tab 08/30/18 [Last Taken Unknown] Lidocaine [Lidoderm 5%] 1 patch TOPICAL DAILY 09/13/18 [Last Taken Unknown] furosemide 80 mg tablet 80 mg PO DAILY 09/14/18 [Last Taken Unknown] Escitalopram Oxalate 5 mg PO DAILY 09/23/18 [Last Taken Unknown] Insul NPH Hu Rec/Ins Rg Hu Rec [Novolin 70/30 100U/ml] 10 units SQ 0800 09/23/18 [Last Taken Unknown] Insul NPH Hu Rec/Ins Rg Hu Rec [Novolin 70/30 100U/ml] 15 units SQ 1700 09/23/18 [Last Taken Unknown] albuterol sulfate HFA 90 mcg/actuation aerosol inhaler 2 puff INHALATION Q4H PRN 09/23/18 [Last Taken Unknown] nystatin 100,000 unit/gram topical cream 1 applic TP TID 10/11/18 [Last Taken Unknown] fluticasone propionate 50 mcg/actuation nasal spray,suspension 1 spray ABI DAILY PRN 10/15/18 [Last Taken Unknown] lidocaine HCl 4 % topical cream 1 applic TP QID PRN 10/15/18 [Last Taken Unknown] metoprolol succinate ER 25 mg tablet,extended release 24 hr 25 mg PO DAILY 10/15/18 [Last Taken Unknown] multivitamin tablet 1 tab PO DAILY 10/15/18 [Last Taken Unknown] simethicone 180 mg capsule 180 mg PO BID PRN 10/15/18 [Last Taken Unknown] oxycodone 5 mg tablet 5 mg PO Q6H PRN #30 tab 10/21/18 [Last Taken Unknown] L. Rhamnosus GG/Inulin [Culturelle Capsule] 1 ea PO DAILY 10/27/18 [Last Taken Unknown] Ondansetron [Zofran Odt] 4 mg PO Q6H PRN 10/27/18 [Last Taken Unknown] Polyethylene Glycol 3350 [Gavilax] 17 gm PO DAILY 10/27/18 [Last Taken Unknown] - History of Present History Narrative: Pt brought by EMS from [place] with report of vomiting blood. Pt is on xarelto. Timing: constant Severity: mild Review of Systems - Review of Systems Constitutional: Absent: recent illness ENT: Absent: nose congestion, nasal drainage Respiratory: Absent: cough Gastrointestinal/Abdominal: Present: nausea. Absent: vomiting, abdominal pain Skin: Present: rash, lesions Hematologic/Lymphatic: Present: easy bruising, easy bleeding Medical History (Updated 10/27/18 @ 07:08 by Vasquez Siddiqi DO) Back pain Onset Date: Unknown Influenza vaccine refused has already received the vaccine for the season. 01/28/18 ARSEN Christianson Atrial fibrillation Onset Date: Unknown CAD (coronary artery disease) Onset Date: Unknown Cardiomyopathy Onset Date: ~2008 Chronic renal failure Onset Date: 09/02/13 Congestive heart failure Onset Date: Unknown Diabetes mellitus type 2, noninsulin dependent Onset Date: Unknown Hyperlipidemia Onset Date: Unknown Hypertension Onset Date: Unknown Hypothyroidism (acquired) Onset Date: Unknown Candidiasis of mouth Onset Date: 10/07/12 Gout Onset Date: Unknown Herpes zoster Onset Date: ~04/2010 History of GI bleed Onset Date: ~2010 History of polymyalgia rheumatica Onset Date: ~2008 Myocardial infarct, old Onset Date: ~1983 x2 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 History of cholecystectomy Onset Date: ~1995 [place]-lap History of dilation and curettage Onset Date: ~1959 had 2 or 3 History of esophagogastroduodenoscopy (EGD) Onset Date: 11/25/17 11/30/14 [place]-moderate chronic gastritis. H.pylor negative. 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 History of eyelid surgery Onset Date: 01/16/16 [facility]-lift History of implantable cardiac defibrillator (ICD) Onset Date: ~2008 2004 with LV lead addition, 2008 ICDgenertor change with lead revision patient reports being on her fourth ICD History of total abdominal hysterectomy and bilateral salpingo-oophorectomy Onset Date: ~03/1995 Dr Lo Pacemaker Onset Date: ~2002 patient stated she doesnt have this anymore because it didnt work for her. Family History: Family History (Last Reviewed 10/27/18 @ 06:07 by Vasquez Siddiqi DO) Father , age 80's-stomach cancer Cancer stomach Mother , age 80's-strokes Diabetes Hypertension CVA (cerebral vascular accident) Brother , age 51-larynx cancer w/mets to liver Cancer larynx Sister , age 68-pancreatic ca Cancer pancreatic Daughter Multiple myeloma Daughter Osteosarcoma of pelvic bone Social History: (Last Reviewed 10/27/18 @ 06:07 by Vasquez Siddiqi DO) Social History: Marital status: household members: spouse number of children: 2 current occupational status: retired Service: No Tobacco: Smoking Status: Never smoker Alcohol: alcohol intake: former Substance Use: substance use type: does not use Dietary Habits: caffeine: Yes Personal Safety: victim of physical abuse: No victim of emotional abuse: No Physical Exam - Physical Exam General Appearance: Present: wd/wn, alert, no apparent distress Head Exam: Present: normal inspection, no evidence of injury Neck: Present: normal inspection, nontender Respiratory: Present: no respiratory distress, no accessory muscle use, chest nontender, lungs clear Cardiovascular/Chest: Present: regular rate, rhythm, no murmur Gastrointestinal/Abdominal: Present: normal bowel sounds, nontender, nondistended, soft Rectal Exam: Present: nontender, normal rectal tone, other - healing sacral decubitus Extremity Exam: Present: normal except -, pedal edema Neurological Exam: Present: alert, oriented Skin Exam: Present: warm/dry, other - multiple bruises and bleeding on b/l forearms and legs, Sacral decubitus, healing Progress - Results and Orders Patient's Lab Results:: I have reviewed the patient's lab results. Results and Orders: Laboratory Tests 10/27/18 10/27/18 06:15 06:15 WBC 16.2 H Hgb 11.6 L Hct 32.3 L Plt Count 264 Neutrophils % 87.7 H Urine Color Yellow Urine Appearance Cloudy Urine pH 6.0 Ur Specific [place] 1.020 Urine Protein 15 H Urine Blood 50 H Urine Nitrate Positive H Ur Leukocyte Esterase 500 H Urine RBC >50 H Urine WBC >50 H Urine Bacteria 3+ H Urine Culture Comments Culture to follow Laboratory Tests 10/27/18 10/27/18 06:15 06:15 Neutrophils % 87.7 H Sodium 129 L Potassium 2.4 L* D Chloride 89 L Anion Gap 15.9 H BUN 62 H Creatinine 1.75 H D Random Glucose 142 H Calcium 8.1 Total Bilirubin 0.9 AST 19 ALT 8 L Alkaline Phosphatase 191 H Albumin 1.8 L Laboratory Tests 10/27/18 07:12 Stool Occult Blood Negative - Vital Signs Patient's Vital Signs:: I have reviewed the patient's vital signs. - EKG EKG #1 EKG: other - paced rhythm EKG read: Interp. by me - X-Ray X-Ray #1 X-Ray: abdomen Interpretation: Interp. by me X-ray Comments: few air/fluid levels without dilation or evidence for obstruction. - Progress/Reassessment Progress Note-Subjective: 10/27/18 07:[address] Camp and she agrees with admission for pyelonephritis and hypokalemia. 10/27/18 07:34 will treat pyelo with TMP/SMX at lowered dose due to GFR of 30. Departure Clinical Impression: Pyelonephritis, Hypokalemia - Departure Disposition: Home self-care Condition: Good
[2018-10-27 06:21] LABS: Hematocrit 32.3 % (37.0-47.0); Hemoglobin 11.6 gm/dL (12.5-16.0); Mean Cell Volume 96.1 fl (78-100); Mean Corpuscular Hemoglobin 34.5 pg (27-31); Mean Corpuscular Hgb Conc 35.9 g/dl (32-36); Mean Platelet Volume 10.1 fl (8-12.5); Neutrophil # 14.2 K/mm3 (1.3-6.0); Neutrophil % 87.7 % (42-75.0); Platelet Count 264 K/mm3 (150-450); Red Blood Count 3.36 M/mm3 (4.2-5.4); Red Cell Distribution Width 15.4 % (11.5-14.0); White Blood Count 16.2 K/mm3 (4.0-10.5)
[2018-10-27] MEDS ORDERED: NORMAL SALINE 1,000 ML IV ONE ×2 (06:24→07:41)
[2018-10-27 06:36] LABS: Urine Bilirubin Negative (NEGATIVE); Urine Blood 50 /ul (NEGATIVE); Urine Ketone Negative (NEGATIVE); Urine Protein 15 mg/dL (NEGATIVE); Urine Urobilinogen 4 EU/dl (NORMAL)
[2018-10-27 06:41] LABS: Urine Appearance Cloudy (CLEAR); Urine Bacteria 3+; Urine Color Yellow; Urine Nitrite Positive (NEGATIVE); Urine RBC >50 /hpf (0-5); Urine WBC >50 /hpf (0-5)
[2018-10-27 06:46] LABS: Albumin * 1.8 gm/dl (3.4-5.0); Anion Gap 15.9 mmol/L (6.8-13.8); BUN/Creatinine Ratio 35.4 (9.0-21.6); Bilirubin, Total 0.9 mg/dL (0.0-1.1); Ca. Corrected For Albumin 9.5 mg/dL (8.4-10.2); Calcium * 8.1 mg/dL (7.9-10.9); Carbon Dioxide 26.5 mmol/L (24-32.6); Total Protein 6.2 gm/dL (6.2-8.2)
[2018-10-27 06:48] LABS: Potassium 2.4 mmol/L (3.4-4.6)
[2018-10-27] MEDS ORDERED: SULFAMETHOXAZOLE/TRIMETHOPRIM 10 ML in DEXTROSE 5 % IN WATER 250 ML IV SCH ×2 (07:45)
[2018-10-27] MEDS: POTASSIUM CHLORIDE IN WATER 100 ML IV SCH ×6 (07:48→16:34)
--- NOTE | 2018-10-27 09:42 | HP ---
Chief Complaint - Chief Complaint Date of Service: 10/27/18 Time of Service: 09:42 Chief Complaint: leg pain History of Present Illness: Patient with extensive PMHx reports going to the ED from a half-way due to leg pain and shortness of breath. She recently was transferred from our facility to [facility] for concern for vascular compromise of her feet. ED physician reported she was having some hematemesis prior to arrival. The hematemesis did not persist, but she was admitted for hypokalemia of 2.4 and pyelonephritis. On my exam, she reported having leg pain. She states her shortness of breath has improved. She denies any urinary symptoms, including dysuria, frequency, back pain. Medical History (Updated 10/27/18 @ 11:08 by Claudia Camp DO) Back pain Onset Date: Unknown Influenza vaccine refused has already received the vaccine for the season. 01/28/18 ARSEN Christianson Atrial fibrillation Onset Date: Unknown CAD (coronary artery disease) Onset Date: Unknown Cardiomyopathy Onset Date: ~2008 Chronic renal failure Onset Date: 09/02/13 Congestive heart failure Onset Date: Unknown Diabetes mellitus type 2, noninsulin dependent Onset Date: Unknown Hyperlipidemia Onset Date: Unknown Hypertension Onset Date: Unknown Hypothyroidism (acquired) Onset Date: Unknown Candidiasis of mouth Onset Date: 10/07/12 Gout Onset Date: Unknown Herpes zoster Onset Date: ~04/2010 History of GI bleed Onset Date: ~2010 History of polymyalgia rheumatica Onset Date: ~2008 Myocardial infarct, old Onset Date: ~1983 x2 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 History of cholecystectomy Onset Date: ~1995 Tinguely-lap History of dilation and curettage Onset Date: ~1959 had 2 or 3 History of esophagogastroduodenoscopy (EGD) Onset Date: 11/25/17 11/30/14 [place]-moderate chronic gastritis. H.pylor negative. 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 History of eyelid surgery Onset Date: 01/16/16 UI-lift History of implantable cardiac defibrillator (ICD) Onset Date: ~2008 2004 with LV lead addition, 2008 ICDgenertor change with lead revision patient reports being on her fourth ICD History of total abdominal hysterectomy and bilateral salpingo-oophorectomy Onset Date: ~03/1995 Dr Lo Pacemaker Onset Date: ~2002 patient stated she doesnt have this anymore because it didnt work for her. Family History: Family History (Last Reviewed 10/27/18 @ 08:15 by Lizzeth Wilkinson RN) Father , age 80's-stomach cancer Cancer stomach Mother , age 80's-strokes Diabetes Hypertension CVA (cerebral vascular accident) Brother , age 51-larynx cancer w/mets to liver Cancer larynx Sister , age 68-pancreatic ca Cancer pancreatic Daughter Multiple myeloma Daughter Osteosarcoma of pelvic bone Social History: (Last Reviewed 10/27/18 @ 08:15 by Lizzeth Wilkinson RN) Social History: Marital status: household members: spouse number of children: 2 current occupational status: retired Service: No Tobacco: Smoking Status: Never smoker Alcohol: alcohol intake: former Substance Use: substance use type: does not use Dietary Habits: caffeine: Yes Personal Safety: victim of physical abuse: No victim of emotional abuse: No Review Of Systems (GEN) - Review of Systems Generalized/Overall Review: Present: Weakness. Absent: Fever Respiratory: Present: Shortness of Breath Cardiac: Absent: Chest Pain Abdominal: Present: Hematemesis Genitourinary: Present: No Symptoms Reported Musculoskeletal: Present: No Symptoms Reported Neurological: Present: No Symptoms Reported Skin: Present: Other - bilateral food wounds Immunizations: IMMUNIZATION HX Immunizations Up to Date Yes History of Influenza Vaccine Yes Hx Pneumococcal Vaccination No Allergies/Adverse Reactions: Allergies Allergy/AdvReac Type Severity Reaction Status Date / Time Penicillins Allergy Severe HIVES, Verified 10/27/18 08:16 THROAT SWELLS indomethacin [From Indocin] AdvReac Intermediate GI BLEED Verified 10/27/18 08:16 indomethacin sodium AdvReac Intermediate GI BLEED Verified 10/27/18 08:16 [From Indocin] ezetimibe [From Zetia] AdvReac Mild FEELS Verified 10/27/18 08:16 TINGLY ALL OVER, SIDE PAIN glipizide [From Glucotrol] AdvReac Mild HAIR FELL Verified 10/27/18 08:16 OUT metformin HCl AdvReac Mild JUST Verified 10/27/18 08:16 [From Glucophage] DOESNT WORK Ddfyzsm-Bgt-Pqo Reductase AdvReac Mild MUSCLE Verified 10/27/18 08:16 Inhibitor ACHES levofloxacin [From Levaquin] AdvReac Verified 10/27/18 08:16 Home Medications: HOME MEDICATIONS Nitroglycerin [Nitrostat] 0.4 mg SL Q5MIN PRN 06/18/15 [Last Taken Unknown] Lisinopril [Zestril] 2.5 mg PO DAILY 07/10/17 [Last Taken 11/25/17] cholecalciferol (vitamin D3) 2,000 unit capsule 2,000 unit PO DAILY 11/05/17 [Last Taken 11/24/17] rivaroxaban 15 mg tablet 15 mg PO QPM #30 tab 01/28/18 [Last Taken Unknown] pantoprazole 40 mg tablet,delayed release 40 mg PO DAILY #30 tab 07/23/18 [Last Taken Unknown] Acetaminophen [Tylenol] 500 mg PO Q4H PRN tab 08/16/18 [Last Taken Unknown] Bisacodyl [Dulcolax] 10 mg PO DAILY PRN tablet. 08/16/18 [Last Taken Unknown] tiZANidine HCL [Tizanidine HCl] 4 mg PO Q6H PRN #30 tab 08/16/18 [Last Taken Unknown] levothyroxine 175 mcg tablet 175 mcg PO DAILY #90 tab 08/23/18 [Last Taken 09/13/18] gemfibrozil 600 mg tablet 600 mg PO BID #60 tab 08/30/18 [Last Taken Unknown] Lidocaine [Lidoderm 5%] 1 patch TOPICAL DAILY 09/13/18 [Last Taken Unknown] furosemide 80 mg tablet 80 mg PO DAILY 09/14/18 [Last Taken Unknown] Escitalopram Oxalate 5 mg PO DAILY 09/23/18 [Last Taken Unknown] Insul NPH Hu Rec/Ins Rg Hu Rec [Novolin 70/30 100U/ml] 10 units SQ 0800 09/23/18 [Last Taken Unknown] Insul NPH Hu Rec/Ins Rg Hu Rec [Novolin 70/30 100U/ml] 15 units SQ 1700 09/23/18 [Last Taken Unknown] albuterol sulfate HFA 90 mcg/actuation aerosol inhaler 2 puff INHALATION Q4H PRN 09/23/18 [Last Taken Unknown] nystatin 100,000 unit/gram topical cream 1 applic TP BID PRN 10/11/18 [Last Taken Unknown] fluticasone propionate 50 mcg/actuation nasal spray,suspension 1 spray ABI DAILY PRN 10/15/18 [Last Taken Unknown] lidocaine HCl 4 % topical cream 1 applic TP QID PRN 10/15/18 [Last Taken Unknown] metoprolol succinate ER 25 mg tablet,extended release 24 hr 25 mg PO DAILY 10/15/18 [Last Taken Unknown] multivitamin tablet 1 tab PO DAILY 10/15/18 [Last Taken Unknown] simethicone 180 mg capsule 180 mg PO BID PRN 10/15/18 [Last Taken Unknown] oxycodone 5 mg tablet 5 mg PO Q6H PRN #30 tab 10/21/18 [Last Taken Unknown] Collagenase Clostridium Hist. [Santyl] 30 gm TOPICAL BID 10/27/18 [Last Taken Unknown] L. Rhamnosus GG/Inulin [Culturelle Capsule] 1 ea PO DAILY 10/27/18 [Last Taken Unknown] Lanolin Alcohol/Mo/W.pet/[place] [Eucerin Creme] 57 gm TOPICAL PRN PRN 10/27/18 [Last Taken Unknown] Mupirocin [Bactroban] 1 appl TOPICAL BID 10/27/18 [Last Taken Unknown] Ondansetron [Zofran Odt] 4 mg PO Q6H PRN 10/27/18 [Last Taken Unknown] Polyethylene Glycol 3350 [Gavilax] 17 gm PO DAILY 10/27/18 [Last Taken Unknown] Exam - Exam Vital Signs: Vital Signs - Last Taken Temp 36.5 C 10/27/18 08:18 Pulse 79 10/27/18 08:18 Resp 17 10/27/18 08:18 BP 115/56 10/27/18 08:18 Pulse Ox 97 10/27/18 08:18 Constitutional: Present: Alert - sleepy, but wakens and answers questions, Elderly - appears frail and ill Respiratory: Present: lungs clear, no respiratory distress Cardiovascular/Chest: Present: regular rate, rhythm Abdomen: Present: soft, obese. Absent: tender Extremity: Present: other - purplish discoloration of 2nd-5th toes, right greater than left. Absent: lower extremity edema Skin Exam: Present: other - 8 cm dry Stage III ulcer of dorsal right foot, 6 cm Stage III ulcer of dorsum of left foot Diagnostic Studies: Abnormal Lab Results 10/27/18 10/27/18 10/27/18 Range/Units 06:15 06:15 06:15 WBC 16.2 H (4.0-10.5) K/mm3 RBC 3.36 L (4.2-5.4) M/mm3 Hgb 11.6 L (12.5-16.0) gm/dL Hct 32.3 L (37.0-47.0) % MCH 34.5 H (27-31) pg RDW 15.4 H (11.5-14.0) % Immature Gran % (Auto) 1.20 H (0.001-0.429) % Immature Gran # (Auto) 0.19 H (0.000-0.0310) K/mm3 Neutrophils % 87.7 H (42-75.0) % Lymphocytes % 3.1 L (20-51) % Neutrophils # 14.2 H (1.3-6.0) K/mm3 Lymphocytes # 0.50 L (1.5-3.5) k/mm3 Sodium 129 L (132-142) mmol/L Potassium 2.4 L* D (3.4-4.6) mmol/L Chloride 89 L (97-106) mmol/L Anion Gap 15.9 H (6.8-13.8) mmol/L BUN 62 H (3-23) mg/dL Creatinine 1.75 H D (0.4-1.4) mg/dL Est GFR (Non-Af Amer) 30 L D (60-130) mL/min BUN/Creatinine Ratio 35.4 H (9.0-21.6) Random Glucose 142 H (70-110) mg/dL ALT 8 L (19-67) U/L Alkaline Phosphatase 191 H (50-170) U/L Albumin 1.8 L (3.4-5.0) gm/dl Urine Protein 15 H (NEGATIVE) mg/dL Urine Blood 50 H (NEGATIVE) /ul Urine Nitrate Positive H (NEGATIVE) Urine Urobilinogen 4 H (NORMAL) EU/dl Ur Leukocyte Esterase 500 H (NEGATIVE) /ul Urine RBC >50 H (0-5) /hpf Urine WBC >50 H (0-5) /hpf Urine Bacteria 3+ H (NONE) Laboratory Results WBC 16.2 K/mm3 (4.0-10.5) H 10/27/18 06:15 RBC 3.36 M/mm3 (4.2-5.4) L 10/27/18 06:15 Hgb 11.6 gm/dL (12.5-16.0) L 10/27/18 06:15 Hct 32.3 % (37.0-47.0) L 10/27/18 06:15 MCV 96.1 fl (78-100) 10/27/18 06:15 MCH 34.5 pg (27-31) H 10/27/18 06:15 MCHC 35.9 g/dl (32-36) 10/27/18 06:15 RDW 15.4 % (11.5-14.0) H 10/27/18 06:15 Plt Count 264 K/mm3 (150-450) 10/27/18 06:15 MPV 10.1 fl (8-12.5) 10/27/18 06:15 Immature Gran % (Auto) 1.20 % (0.001-0.429) H 10/27/18 06:15 Immature Gran # (Auto) 0.19 K/mm3 (0.000-0.0310) H 10/27/18 06:15 87.7 % (42-75.0) H 10/27/18 06:15 3.1 % (20-51) L 10/27/18 06:15 6.3 % (0.0-9) 10/27/18 06:15 1.5 % (0.0-3.0) 10/27/18 06:15 0.2 % (0.0-1.0) 10/27/18 06:15 Nucleated RBC % 0.0 k/mm3 (0-1) 10/27/18 06:15 14.2 K/mm3 (1.3-6.0) H 10/27/18 06:15 0.50 k/mm3 (1.5-3.5) L 10/27/18 06:15 1.0 k/mm3 (0.0-1.0) 10/27/18 06:15 0.2 k/mm3 (0.0-0.7) 10/27/18 06:15 Absolute Basophils 0.0 k/mm3 (0.0-0.1) 10/27/18 06:15 Sodium 129 mmol/L (132-142) L 10/27/18 06:15 130 mmol/L (130-142) 10/27/18 06:15 Potassium 2.4 mmol/L (3.4-4.6) L* D 10/27/18 06:15 Chloride 89 mmol/L (97-106) L 10/27/18 06:15 Carbon Dioxide 26.5 mmol/L (24-32.6) 10/27/18 06:15 15.9 mmol/L (6.8-13.8) H 10/27/18 06:15 BUN 62 mg/dL (3-23) H 10/27/18 06:15 1.75 mg/dL (0.4-1.4) H D 10/27/18 06:15 Est GFR (Non-Af Amer) 30 mL/min (60-130) L D 10/27/18 06:15 35.4 (9.0-21.6) H 10/27/18 06:15 142 mg/dL (70-110) H 10/27/18 06:15 Calcium 8.1 mg/dL (7.9-10.9) 10/27/18 06:15 Calcium Adj for Albumin 9.5 mg/dL (8.4-10.2) 10/27/18 06:15 0.9 mg/dL (0.0-1.1) 10/27/18 06:15 AST 19 U/L (0-48) 10/27/18 06:15 ALT 8 U/L (19-67) L 10/27/18 06:15 191 U/L (50-170) H 10/27/18 06:15 6.2 gm/dL (6.2-8.2) 10/27/18 06:15 1.8 gm/dl (3.4-5.0) L 10/27/18 06:15 Yellow 10/27/18 06:15 Cloudy (CLEAR) 10/27/18 06:15 6.0 pH (5.0-7.0) 10/27/18 06:15 Ur Specific [place] 1.020 SP.GR. (1.005-1.010) 10/27/18 06:15 15 mg/dL (NEGATIVE) H 10/27/18 06:15 Negative mg/dL (NEGATIVE) 10/27/18 06:15 Negative mg/dL (NEGATIVE) 10/27/18 06:15 50 /ul (NEGATIVE) H 10/27/18 06:15 Positive (NEGATIVE) H 10/27/18 06:15 Negative mg/dl (NEGATIVE) 10/27/18 06:15 Prot Sulfosalicylic Acd 1+ mg/dL (0) 10/27/18 06:15 4 EU/dl (NORMAL) H 10/27/18 06:15 Ur Leukocyte Esterase 500 /ul (NEGATIVE) H 10/27/18 06:15 >50 /hpf (0-5) H 10/27/18 06:15 >50 /hpf (0-5) H 10/27/18 06:15 Ur Epithelial Cells 0-5 /hpf (0-5) 10/27/18 06:15 3+ (NONE) H 10/27/18 06:15 Culture to follow 10/27/18 06:15 Negative 10/27/18 07:12 Assessment/Plan - Assessment/Plan (1) Skin ulcers of foot, bilateral Assessment: Records from recent hospitalization show wound culture collected was positive for multi-drug resistant Klebsiella, pseudomonas aeruginosa, staphylococcus, enterococcus faecalis. She had wound debriding and a wound vac. 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 Dermatology note from 09/28 reported using iodoform gauze with topical silvadene or bacitracin. Wound care consult has been placed. Blood cultures pending, but will be obtained after antibiotics were started. She has a mild elevated of WBC, of 16.4. Procalcitonin and lactic acid pending. If these are negative, infection far less likely, and she can probably return to the [facility] tomorrow. Problem: Acute (2) HFrEF (heart failure with reduced ejection fraction) Assessment: Echo done 09/24 showed an EF of 10-15%, severe diffuse hypokinesis, sclerotic aortic valve, RVSP of 59. Briefly discussed poor prognosis, and will consult hospice for more extensive discussion regarding goals of care. Problem: Chronic (3) Hypokalemia Assessment: K+ of 2.4 this morning. Potassium replaced by the ED doc via IV, and will add 40 mEq liquid KCl daily. Recheck BMP this afternoon. Problem: Acute (4) UTI (urinary tract infection) Assessment: UA positive for nitrates, leukocyte esterase, and 3+ bacteria. Pyelo less likely, however, since she is asymptomatic. will continue bactrim, and urine culture is pending. She is afebrile. Problem: Acute (5) Skin tear Problem: Acute (6) Coronary artery disease Problem: Chronic Qualifiers: Coronary Disease-Associated Artery/Lesion type: unspecified vessel or lesion type [place] vs. transplanted heart: [place] heart Associated angina: without angina Qualified Code(s): I25.10 - Atherosclerotic heart disease of [place] coronary artery without angina pectoris (7) Pacemaker Problem: Chronic (8) Hypertension Problem: Chronic Qualifiers: Hypertension type: essential hypertension Qualified Code(s): I10 - Essential (primary) hypertension (9) Stage III chronic kidney disease Problem: Chronic (10) Pulmonary hypertension Problem: Chronic (11) Ecthyma gangrenosum Problem: Chronic
[2018-10-27] MEDS: POTASSIUM CHLORIDE 40 MEQ/15 ML LIQUID PO SCH (12:11)
--- NOTE | 2018-10-27 13:02 | CONS ---
[facility] - General Date of Service: 10/27/18 Narrative: Patient is a 77 year old female, recently admitted to the hospital regarding leg pain and shortness of breath. She was admitted in August 2018, regarding a reaction to Levaquin, that resulted in multiple fluid filled blisters to the lower extremities. Since that time, the patient was treated at [facility], and diagnosed with ecthyma gangrenosum. It appears from records, that her US of the lower extremities indicated stenosis of the left popliteal artery. She continues to have a large open ulcer on the right dorsal foot, and a scabbed area on the left dorsal foot. Treatment is unclear, and may include iodoform gauze and bacitratin or silvadene. The patient denies any pain associated with the areas today. Her medical history includes a UTI, diagnosed on admission, skin ulcers of the lower extremities, heart failure, hypokalemia, stage III kidney disease and coronary artery disease. Source: patient - History of Present Illness Timing/Duration: changing over time Allergies/Adverse Reactions: Allergies Penicillins Allergy (Severe, Verified 10/27/18 08:16) HIVES, THROAT SWELLS indomethacin [From Indocin] Adverse Reaction (Intermediate, Verified 10/27/18 08:16) GI BLEED indomethacin sodium [From Indocin] Adverse Reaction (Intermediate, Verified 10/27/18 08:16) GI BLEED ezetimibe [From Zetia] Adverse Reaction (Mild, Verified 10/27/18 08:16) FEELS TINGLY ALL OVER, SIDE PAIN glipizide [From Glucotrol] Adverse Reaction (Mild, Verified 10/27/18 08:16) HAIR FELL OUT metformin HCl [From Glucophage] Adverse Reaction (Mild, Verified 10/27/18 08:16) JUST DOESNT WORK Zdukiic-Ppy-Edw Reductase Inhibitor Adverse Reaction (Mild, Verified 10/27/18 08:16) MUSCLE ACHES levofloxacin [From Levaquin] Adverse Reaction (Verified 10/27/18 08:16) Home Medications: Home Medications Medication Instructions Recorded Last Taken Nitroglycerin [Nitrostat] 0.4 mg SL Q5MIN PRN 06/18/15 Unknown Lisinopril [Zestril] 2.5 mg PO DAILY 07/10/17 11/25/17 cholecalciferol (vitamin D3) 2,000 2,000 unit PO DAILY 11/05/17 11/24/17 unit capsule rivaroxaban 15 mg tablet 15 mg PO QPM #30 tab 01/28/18 Unknown pantoprazole 40 mg tablet,delayed 40 mg PO DAILY #30 tab 07/23/18 Unknown release Acetaminophen [Tylenol] 500 mg PO Q4H PRN tab 08/16/18 Unknown Bisacodyl [Dulcolax] 10 mg PO DAILY PRN tablet. 08/16/18 Unknown tiZANidine HCL [Tizanidine HCl] 4 mg PO Q6H PRN #30 tab 08/16/18 Unknown levothyroxine 175 mcg tablet 175 mcg PO DAILY #90 tab 08/23/18 09/13/18 gemfibrozil 600 mg tablet 600 mg PO BID #60 tab 08/30/18 Unknown Lidocaine [Lidoderm 5%] 1 patch TOPICAL DAILY 09/13/18 Unknown furosemide 80 mg tablet 80 mg PO DAILY 09/14/18 Unknown Escitalopram Oxalate 5 mg PO DAILY 09/23/18 Unknown Insul NPH Hu Rec/Ins Rg Hu Rec 10 units SQ 0800 09/23/18 Unknown [Novolin 70/30] Insul NPH Hu Rec/Ins Rg Hu Rec 15 units SQ 1700 09/23/18 Unknown [Novolin 70/30] albuterol sulfate HFA 90 2 puff INHALATION Q4H PRN 09/23/18 Unknown mcg/actuation aerosol inhaler nystatin 100,000 unit/gram topical 1 applic TP BID PRN 10/11/18 Unknown cream fluticasone propionate 50 1 spray ABI DAILY PRN 10/15/18 Unknown mcg/actuation nasal spray,suspension lidocaine HCl 4 % topical cream 1 applic TP QID PRN 10/15/18 Unknown metoprolol succinate ER 25 mg 25 mg PO DAILY 10/15/18 Unknown tablet,extended release 24 hr multivitamin tablet 1 tab PO DAILY 10/15/18 Unknown simethicone 180 mg capsule 180 mg PO BID PRN 10/15/18 Unknown oxycodone 5 mg tablet 5 mg PO Q6H PRN #30 tab 10/21/18 Unknown Collagenase Clostridium Hist. 30 gm TOPICAL BID 10/27/18 Unknown [Santyl] L. Rhamnosus GG/Inulin [Culturelle 1 ea PO DAILY 10/27/18 Unknown Capsule] Lanolin Alcohol/Mo/W.pet/[place] 57 gm TOPICAL PRN PRN 10/27/18 Unknown [Eucerin Creme] Mupirocin [Bactroban] 1 appl TOPICAL BID 10/27/18 Unknown Ondansetron [Zofran Odt] 4 mg PO Q6H PRN 10/27/18 Unknown Polyethylene Glycol 3350 [Gavilax] 17 gm PO DAILY 10/27/18 Unknown Meropenem [Merrem] 1 gm IV Q12H 6 Days #13 vial 10/29/18 Unknown Procedures Excision of semilunar cartilage of knee (01/14/06) Replacement of Left Lens with Synthetic Substitute, Percutaneous Approach (06/25/15) Replacement of Right Lens with Synthetic Substitute, Percutaneous Approach (07/09/15) Medications - Medications Current Medications: Current Medications Sodium Chloride (Sodium Chloride 0.9%) 1,000 mls @ 50 mls/hr IV .Q20H ONE Stop: 10/28/18 03:40 Last Admin: 10/27/18 07:50 Dose: 50 mls/hr Documented by: Trimethoprim/Sulfamethoxazole (10 ml/ Dextrose/Water) 260 mls @ 250 mls/hr IV Q12H MICHAEL; Protocol Stop: 11/26/18 07:46 Last Infusion: 10/27/18 12:09 Dose: Infused Documented by: Potassium Chloride (Potassium Chloride 40 Meq/15ml Liquid) 40 meq PO DAILY MICHAEL Stop: 11/26/18 11:46 Last Admin: 10/27/18 12:11 Dose: 40 meq Documented by: Review of Systems - Review of Systems Generalized/Overall Review: Present: Weakness EENTM: Absent: Nose Congestion Respiratory: Absent: Cough, Shortness of Breath Cardiac: Present: Edema. Absent: Chest Pain Abdominal: Present: Nausea Musculoskeletal: Present: Joint Pain Neurological: Absent: Headache Skin: Present: Lesions Physical Examination - Exam Vital Signs: Vital Signs - Last Taken Temp 35.8 C L 10/27/18 10:32 Pulse 75 10/27/18 10:32 Resp 16 10/27/18 10:32 BP 107/53 10/27/18 10:32 Pulse Ox 96 10/27/18 11:30 O2 Oxygen Delivery Method Nasal Cannula Constitutional: Present: Cooperative, Somnolent ENT Exam: Present: hearing grossly normal Skin Exam: Present: other - there is an ulcer on the left dorsal foot measuring ~ 4.0cm x 1.5cm. dry scab intact. no erythema. no drainage. the ulcer on the right dorsal foot measures ~ 5cm in circumference. large amount of red granulation. moderate amount of serous drainage. no erythema. there are several superficial open areas on the right anterior lower leg. - Results and Findings: Lab/Microbiology results last 24 hrs: Abnormal/Pending Laboratory Last 24 HRS 10/27/18 10/27/18 10/27/18 06:15 06:15 06:15 WBC 16.2 H RBC 3.36 L Hgb 11.6 L Hct 32.3 L MCH 34.5 H RDW 15.4 H Immature Gran % (Auto) 1.20 H Immature Gran # (Auto) 0.19 H Neutrophils % 87.7 H Lymphocytes % 3.1 L Neutrophils # 14.2 H Lymphocytes # 0.50 L Sodium 129 L Potassium 2.4 L* D Chloride 89 L Anion Gap 15.9 H BUN 62 H Creatinine 1.75 H D Est GFR (Non-Af Amer) 30 L D BUN/Creatinine Ratio 35.4 H Random Glucose 142 H ALT 8 L Alkaline Phosphatase 191 H Albumin 1.8 L Urine Protein 15 H Urine Blood 50 H Urine Nitrate Positive H Urine Urobilinogen 4 H Ur Leukocyte Esterase 500 H Urine RBC >50 H Urine WBC >50 H Urine Bacteria 3+ H - Assessments/Findings (1) Skin ulcers of foot, bilateral Problem: Acute (2) Ecthyma gangrenosum Diagnosis(s): Recommend using Nolvia to the open area on the right dorsal foot. This will be covered with gauze and secured with tape. The dressing will be changed every three days, and the area washed thoroughly at dressing changes. Recommend using Aquacel Ag, to the open areas on the right lower leg. This will be changed daily, and washed with soap and water at dressing changes. Problem: Chronic
[2018-10-27 14:15] LABS: Anion Gap 17.7 mmol/L (6.8-13.8); Calcium * 8.4 mg/dL (7.9-10.9); Carbon Dioxide 24.7 mmol/L (24-32.6); Estimated Creat Clear 25.3
[2018-10-27 14:21] LABS: Potassium 3.4 mmol/L (3.4-4.6)
[2018-10-27] MEDS ORDERED: FLUTICASONE PROPIONATE 120 SPRAY INHALER NS PRN (14:53)
[2018-10-27] MEDS ORDERED: BISACODYL 5 MG TABLET.DR PO PRN (14:53)
[2018-10-27] MEDS ORDERED: ALBUTEROL SULFATE 2.5 MG/0.5 ML VIAL.NEB IH PRN (14:53)
[2018-10-27] MEDS ORDERED: ONDANSETRON 4 MG TAB.RAPDIS PO PRN (14:53)
[2018-10-27] MEDS ORDERED: ACETAMINOPHEN 500 MG TABLET PO PRN (14:53)
[2018-10-27] MEDS ORDERED: tiZANidine HCL 4 MG TABLET PO PRN (14:53)
[2018-10-27] MEDS ORDERED: SIMETHICONE 80 MG TAB.CHEW PO PRN (14:53)
[2018-10-27] MEDS ORDERED: LIDOCAINE 5 APPL TUBE TP PRN (14:53)
[2018-10-27] MEDS: oxyCODONE HCL 5 MG TABLET PO PRN (15:25)
[2018-10-27] MEDS: LIDOCAINE 1 PATCH ADH..PATCH TP SCH (15:36)
[2018-10-27] MEDS: LEVOTHYROXINE SODIUM 175 MCG TABLET PO SCH (15:36)
[2018-10-27] MEDS: POLYETHYLENE GLYCOL 3350 17 GM PACKET PO SCH (15:36)
[2018-10-27] MEDS: PANTOPRAZOLE SODIUM 40 MG TABLET.EC PO SCH (15:37)
[2018-10-27] MEDS: LISINOPRIL 2.5 MG TABLET PO SCH (15:37)
[2018-10-27] MEDS: METOPROLOL SUCCINATE 25 MG TABLET.SA PO SCH (15:37)
[2018-10-27] MEDS: ESCITALOPRAM OXALATE 10 MG TAB PO SCH (15:37)
[2018-10-27] MEDS: RIVAROXABAN 15 MG TABLET PO SCH (17:06)
[2018-10-27] MEDS: INSUL NPH HU REC/INS RG HU REC 100 UNITS/ML VIAL SC SCH (17:06)
[2018-10-27] MEDS ORDERED: PROMETHAZINE HCL 25 MG TABLET PO PRN (22:09)
[2018-10-28 05:36] LABS: Hematocrit 32.8 % (37.0-47.0); Hemoglobin 11.5 gm/dL (12.5-16.0); Mean Cell Volume 97.6 fl (78-100); Mean Corpuscular Hemoglobin 34.2 pg (27-31); Mean Corpuscular Hgb Conc 35.1 g/dl (32-36); Mean Platelet Volume 9.9 fl (8-12.5); Neutrophil # 11.5 K/mm3 (1.3-6.0); Neutrophil % 87.8 % (42-75.0); Platelet Count 287 K/mm3 (150-450); Red Blood Count 3.36 M/mm3 (4.2-5.4); Red Cell Distribution Width 15.7 % (11.5-14.0); White Blood Count 13.1 K/mm3 (4.0-10.5)
[2018-10-28 05:53] LABS: Albumin * 1.7 gm/dl (3.4-5.0); Anion Gap 17.5 mmol/L (6.8-13.8); Bilirubin, Total 0.8 mg/dL (0.0-1.1); Ca. Corrected For Albumin 9.7 mg/dL (8.4-10.2); Calcium * 8.2 mg/dL (7.9-10.9); Carbon Dioxide 22.4 mmol/L (24-32.6); Potassium 3.9 mmol/L (3.4-4.6); Total Protein 6.1 gm/dL (6.2-8.2)
[2018-10-28] MEDS: LEVOTHYROXINE SODIUM 175 MCG TABLET PO SCH (07:09)
[2018-10-28] MEDS: PANTOPRAZOLE SODIUM 40 MG TABLET.EC PO SCH (07:09)
[2018-10-28] MEDS: INSUL NPH HU REC/INS RG HU REC 100 UNITS/ML VIAL SC SCH ×2 (08:41→17:08)
[2018-10-28] MEDS ORDERED: SULFAMETHOXAZOLE/TRIMETHOPRIM 1 TAB TABLET PO SCH (09:00)
--- NOTE | 2018-10-28 10:23 | DS ---
(1) Skin ulcers of foot, bilateral Problem: Acute (2) HFrEF (heart failure with reduced ejection fraction) Problem: Chronic (3) Hypokalemia Problem: Acute (4) UTI (urinary tract infection) Problem: Acute (5) Skin tear Problem: Acute (6) Coronary artery disease Problem: Chronic Qualifiers: Coronary Disease-Associated Artery/Lesion type: unspecified vessel or lesion type [place] vs. transplanted heart: [place] heart Associated angina: without angina Qualified Code(s): I25.10 - Atherosclerotic heart disease of [place] coronary artery without angina pectoris (7) Pacemaker Problem: Chronic (8) Hypertension Problem: Chronic Qualifiers: Hypertension type: essential hypertension Qualified Code(s): I10 - Essential (primary) hypertension (9) Stage III chronic kidney disease Problem: Chronic (10) Pulmonary hypertension Problem: Chronic (11) Ecthyma gangrenosum Problem: Chronic Description of Stay: Patient with extensive PMHx reports going to the ED from a care home due to leg pain and shortness of breath. She recently was transferred from our facility to [facility] for concern for vascular compromise of her feet. ED physician reported she was having some hematemesis prior to arrival. The hematemesis did not persist, but she was admitted for hypokalemia of 2.4 and pyelonephritis. On my exam, she reported having leg pain. She states her shortness of breath has improved. She denies any urinary symptoms, including dysuria, frequency, back pain. She was started on bactrim. Urine culture was positive for >100,000 cfu gram negative bacilli, final speciation pending. Procedures Performed: none Results and Findings: Pending Mircobiology Results 10/27/18 06:15 Urine,Catheterized Urine Culture - Preliminary Gram Negative Bacilli Gram Negative Bacilli#2 Lab Pending Results 10/27/18 06:10: Procalcitonin 1.08 H 10/27/18 06:15: WBC 16.2 H, RBC 3.36 L, Hgb 11.6 L, Hct 32.3 L, MCV 96.1, MCH 34.5 H, MCHC 35.9, RDW 15.4 H, Plt Count 264, MPV 10.1, Immature Gran % (Auto) 1.20 H, Immature Gran # (Auto) 0.19 H, Neutrophils % 87.7 H, Lymphocytes % 3.1 L, Monocytes % 6.3, Eosinophils % 1.5, Basophils % 0.2, Nucleated RBC % 0.0, N eutrophils # 14.2 H, Lymphocytes # 0.50 L, Monocytes # 1.0, Eosinophils # 0.2, Absolute Basophils 0.0 10/27/18 06:15: Sodium 129 L, Plasma Sodium 130, Potassium 2.4 L* D, Chloride 89 L, Carbon Dioxide 26.5, Anion Gap 15.9 H, BUN 62 H, Creatinine 1.75 H D, Est GFR (Non-Af Amer) 30 L D, BUN/Creatinine Ratio 35.4 H, Random Glucose 142 H, Calcium 8.1, Calcium Adj for Albumin 9.5, Total Bilirubin 0.9, AST 19, ALT 8 L, Alkaline Phosphatase 191 H, Total Protein 6.2, Albumin 1.8 L 10/27/18 06:15: Urine Color Yellow, Urine Appearance Cloudy, Urine pH 6.0, Ur Specific [place] 1.020, Urine Protein 15 H, Urine Glucose (UA) Negative, Urine Ketones Negative, Urine Blood 50 H, Urine Nitrate Positive H, Urine Bilirubin Negative, Prot Sulfosalicylic Acd 1+, Urine Urobilinogen 4 H, Ur Leukocyte Esterase 500 H, Urine RBC >50 H, Urine WBC >50 H, Ur Epithelial Cells 0-5, Urine Bacteria 3+ H, Urine Culture Comments Culture to follow 10/27/18 06:15: Lactic Acid, Venous 1.7 10/27/18 07:12: Stool Occult Blood Negative 10/27/18 14:04: Sodium 128 L, Plasma Sodium 130, Potassium 3.4 D, Chloride 89 L, Carbon Dioxide 24.7, Anion Gap 17.7 H, BUN 62 H, Creatinine 1.94 H, Est GFR (Non-Af Amer) 27 L, BUN/Creatinine Ratio 32.0 H, Random Glucose 228 H D, Calcium 8.4 10/28/18 05:34: WBC 13.1 H, RBC 3.36 L, Hgb 11.5 L, Hct 32.8 L, MCV 97.6, MCH 34.2 H, MCHC 35.1, RDW 15.7 H, Plt Count 287, MPV 9.9, Immature Gran % (Auto) 1.70 H, Immature Gran # (Auto) 0.22 H, Neutrophils % 87.8 H, Lymphocytes % 3.9 L, Monocytes % 6.1, Eosinophils % 0.2, Basophils % 0.3, Nucleated RBC % 0.0, Neutrophils # 11.5 H, Lymphocytes # 0.51 L, Monocytes # 0.8, Eosinophils # 0.0, Absolute Basophils 0.0 10/28/18 05:34: Sodium 128 L, Plasma Sodium 129 L, Potassium 3.9, Chloride 92 L, Carbon Dioxide 22.4 L, Anion Gap 17.5 H, BUN 64 H, Creatinine 1.94 H, Est GFR (Non-Af Amer) 27 L, BUN/Creatinine Ratio 33.0 H, Random Glucose 161 H, Calcium 8.2, Calcium Adj for Albumin 9.7, Total Bilirubin 0.8, AST 18, ALT 7 L, Alkaline Phosphatase 179 H, Total Protein 6.1 L, Albumin 1.7 L 10/28/18 05:34: Procalcitonin 1.24 H Disposition: Home self-care Condition: Good Referrals: Ericka Perkins MD [Primary Care Provider] - Additional Patient Instructions (free text): -Please make TCM appointment unless care home discharge, or if following up with outside provider. Thank you! Melissa @ [phone] or Claudia at [phone]. Complete Home Medications List: Complete Home Medication List: Nitroglycerin [Nitrostat] 0.4 mg SL Q5MIN PRN 06/18/15 Lisinopril [Zestril] 2.5 mg PO DAILY 07/10/17 cholecalciferol (vitamin D3) 2,000 unit capsule 2,000 unit PO DAILY 11/05/17 rivaroxaban 15 mg tablet 15 mg PO QPM #30 tab 01/28/18 pantoprazole 40 mg tablet,delayed release 40 mg PO DAILY #30 tab 07/23/18 Acetaminophen [Tylenol] 500 mg PO Q4H PRN tab 08/16/18 Bisacodyl [Dulcolax] 10 mg PO DAILY PRN tablet. 08/16/18 tiZANidine HCL [Tizanidine HCl] 4 mg PO Q6H PRN #30 tab 08/16/18 levothyroxine 175 mcg tablet 175 mcg PO DAILY #90 tab 08/23/18 gemfibrozil 600 mg tablet 600 mg PO BID #60 tab 08/30/18 Lidocaine [Lidoderm 5%] 1 patch TOPICAL DAILY 09/13/18 furosemide 80 mg tablet 80 mg PO DAILY 09/14/18 Escitalopram Oxalate 5 mg PO DAILY 09/23/18 Insul NPH Hu Rec/Ins Rg Hu Rec [Novolin 70/30 100U/ml] 10 units SQ 0800 09/23/18 Insul NPH Hu Rec/Ins Rg Hu Rec [Novolin 70/30 100U/ml] 15 units SQ 1700 09/23/18 albuterol sulfate HFA 90 mcg/actuation aerosol inhaler 2 puff INHALATION Q4H PRN 09/23/18 nystatin 100,000 unit/gram topical cream 1 applic TP BID PRN 10/11/18 fluticasone propionate 50 mcg/actuation nasal spray,suspension 1 spray ABI DAILY PRN 10/15/18 lidocaine HCl 4 % topical cream 1 applic TP QID PRN 10/15/18 metoprolol succinate ER 25 mg tablet,extended release 24 hr 25 mg PO DAILY 10/15/18 multivitamin tablet 1 tab PO DAILY 10/15/18 simethicone 180 mg capsule 180 mg PO BID PRN 10/15/18 oxycodone 5 mg tablet 5 mg PO Q6H PRN #30 tab 10/21/18 Collagenase Clostridium Hist. [Santyl] 30 gm TOPICAL BID 10/27/18 L. Rhamnosus GG/Inulin [Culturelle Capsule] 1 ea PO DAILY 10/27/18 Lanolin Alcohol/Mo/W.pet/[place] [Eucerin Creme] 57 gm TOPICAL PRN PRN 10/27/18 Mupirocin [Bactroban] 1 appl TOPICAL BID 10/27/18 Ondansetron [Zofran Odt] 4 mg PO Q6H PRN 10/27/18 Polyethylene Glycol 3350 [Gavilax] 17 gm PO DAILY 10/27/18
--- NOTE | 2018-10-28 11:03 | PN ---
Subjective - Date and Time Seen Date: 10/28/18 Time: 10:00 Subjective Narrative: Patient reports feeling ok today. She is eating. No new concerns. No further episodes of possible hemoptysis. No current shortness of breath. Objective - Review of Systems Generalized/Overall Review: Denies: Fever Respiratory: Denies: Shortness of Breath Cardiac: Reports: Edema. Denies: Chest Pain Abdominal: Denies: Nausea Genitourinary Symptoms: Reports: No Symptoms Reported Skin: Reports: Other - chronic skin wounds - Vitals Vitals: Last Vital Signs Temp 36.3 C 10/28/18 10:00 Pulse 75 10/28/18 10:00 Resp 20 10/28/18 10:00 BP 112/60 10/28/18 10:00 Pulse Ox 100 10/28/18 10:00 - Abnormal Lab Findings Abnormal Lab Findings: Abnormal Lab Results 10/27/18 10/27/18 10/28/18 Range/Units 06:10 14:04 05:34 WBC 13.1 H (4.0-10.5) K/mm3 RBC 3.36 L (4.2-5.4) M/mm3 Hgb 11.5 L (12.5-16.0) gm/dL Hct 32.8 L (37.0-47.0) % MCH 34.2 H (27-31) pg RDW 15.7 H (11.5-14.0) % Immature Gran % (Auto) 1.70 H (0.001-0.429) % Immature Gran # (Auto) 0.22 H (0.000-0.0310) K/mm3 Neutrophils % 87.8 H (42-75.0) % Lymphocytes % 3.9 L (20-51) % Neutrophils # 11.5 H (1.3-6.0) K/mm3 Lymphocytes # 0.51 L (1.5-3.5) k/mm3 Sodium 128 L (132-142) mmol/L Plasma Sodium (130-142) mmol/L Chloride 89 L (97-106) mmol/L Carbon Dioxide (24-32.6) mmol/L Anion Gap 17.7 H (6.8-13.8) mmol/L BUN 62 H (3-23) mg/dL Creatinine 1.94 H (0.4-1.4) mg/dL Est GFR (Non-Af Amer) 27 L (60-130) mL/min BUN/Creatinine Ratio 32.0 H (9.0-21.6) Random Glucose 228 H D (70-110) mg/dL ALT (19-67) U/L Alkaline Phosphatase (50-170) U/L Total Protein (6.2-8.2) gm/dL Albumin (3.4-5.0) gm/dl Procalcitonin 1.08 H (0.05-0.50) ng/mL 10/28/18 10/28/18 Range/Units 05:34 05:34 WBC (4.0-10.5) K/mm3 RBC (4.2-5.4) M/mm3 Hgb (12.5-16.0) gm/dL Hct (37.0-47.0) % MCH (27-31) pg RDW (11.5-14.0) % Immature Gran % (Auto) (0.001-0.429) % Immature Gran # (Auto) (0.000-0.0310) K/mm3 Neutrophils % (42-75.0) % Lymphocytes % (20-51) % Neutrophils # (1.3-6.0) K/mm3 Lymphocytes # (1.5-3.5) k/mm3 Sodium 128 L (132-142) mmol/L Plasma Sodium 129 L (130-142) mmol/L Chloride 92 L (97-106) mmol/L Carbon Dioxide 22.4 L (24-32.6) mmol/L Anion Gap 17.5 H (6.8-13.8) mmol/L BUN 64 H (3-23) mg/dL Creatinine 1.94 H (0.4-1.4) mg/dL Est GFR (Non-Af Amer) 27 L (60-130) mL/min BUN/Creatinine Ratio 33.0 H (9.0-21.6) Random Glucose 161 H (70-110) mg/dL ALT 7 L (19-67) U/L Alkaline Phosphatase 179 H (50-170) U/L Total Protein 6.1 L (6.2-8.2) gm/dL Albumin 1.7 L (3.4-5.0) gm/dl Procalcitonin 1.24 H (0.05-0.50) ng/mL - Exam Constitutional: Present: Alert, Cooperative, Elderly Respiratory: Present: lungs clear Cardiovascular/Chest: Present: regular rate, rhythm Abdomen: Present: nontender, obese /Rectal: Present: Other - hopkins catheter in place Extremity: Present: other - purple discoloration of bilateral feet Skin Exam: Present: other - large C shaped eschar of left foot. Dressing in place over right foot. Lower extremities wrapped to the knee bilaterally Eye contact: Present: cooperative Assessment/Plan - Problems/Diagnosis (1) Skin ulcers of foot, bilateral Problem: Acute Narrative: Records from recent hospitalization show wound culture collected 09/23/18 was positive for multi-drug resistant Klebsiella, pseudomonas aeruginosa, staphylococcus, enterococcus faecalis. She had wound debriding and a wound vac. 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 Dermatology note from 09/28 reported using iodoform gauze with topical silvadene or bacitracin. Blood cultures pending, but were obtained after antibiotics were started. Wound care was consulted. Her wounds do not appear to be actively infected. Will treat with topicals per wound care guidance. She is also prescribed bactrim for a UTI, which may be helping her skin. Recommend ongoing wound care, if not already arranged at the [facility]. Her procalcitonin increased, up to 1.24 from 1.08 yesterday. WBC improved, down to 13.1 from 16.5. (2) HFrEF (heart failure with reduced ejection fraction) Problem: Chronic Narrative: Echo done 09/24 showed an EF of 10-15%, severe diffuse hypokinesis, sclerotic aortic valve, RVSP of 59. Hospice was consulted, but she would like to pursue active treatment. I do not have the DC summary from her recent hospitalization, but if she is not established with a [facility] already, will arrange this after DC. (3) Hypokalemia Problem: Resolved (4) UTI (urinary tract infection) Problem: Acute Narrative: She has a hopkins in place, which she reports is to protect her skin, and appropriate with her numerous lower extremity wounds and limited mobility. Urine culture is positive for >100,000 cfu gram negative bacilli. Her procalcitonin increased from yesterday. Will need to ensure that bactrim is covering her UTI. With her multiple other comorbidities, she is at risk of serious infection. (5) Skin tear Problem: Acute (6) Coronary artery disease Problem: Chronic Qualifiers: Coronary Disease-Associated Artery/Lesion type: unspecified vessel or lesion type [place] vs. transplanted heart: [place] heart Associated angina: without angina Qualified Code(s): I25.10 - Atherosclerotic heart disease of [place] coronary artery without angina pectoris (7) Pacemaker Problem: Chronic (8) Hypertension Problem: Chronic Qualifiers: Hypertension type: essential hypertension Qualified Code(s): I10 - [place] l (primary) hypertension (9) Stage III chronic kidney disease Problem: Chronic (10) Pulmonary hypertension Problem: Chronic (11) Ecthyma gangrenosum Problem: Chronic
[2018-10-28] MEDS: ESCITALOPRAM OXALATE 10 MG TAB PO SCH (11:04)
[2018-10-28] MEDS: LISINOPRIL 2.5 MG TABLET PO SCH (11:04)
[2018-10-28] MEDS: METOPROLOL SUCCINATE 25 MG TABLET.SA PO SCH (11:05)
[2018-10-28] MEDS: POLYETHYLENE GLYCOL 3350 17 GM PACKET PO SCH (11:05)
[2018-10-28] MEDS: LIDOCAINE 1 PATCH ADH..PATCH TP SCH (11:05)
[2018-10-28] MEDS: POTASSIUM CHLORIDE 40 MEQ/15 ML LIQUID PO SCH (11:06)
[2018-10-28] MEDS: RIVAROXABAN 15 MG TABLET PO SCH (17:07)
[2018-10-28] MEDS: oxyCODONE HCL 5 MG TABLET PO PRN (19:03)
[2018-10-29] MEDS: LEVOTHYROXINE SODIUM 175 MCG TABLET PO SCH (06:49)
[2018-10-29] MEDS: PANTOPRAZOLE SODIUM 40 MG TABLET.EC PO SCH (06:49)
[2018-10-29] MEDS ORDERED: ERTAPENEM SODIUM 1,000 MG in NORMAL SALINE 50 ML IV SCH (08:15)
[2018-10-29] MEDS ORDERED: MEROPENEM 1 GM in NORMAL SALINE 100 ML IV SCH (09:00)
[2018-10-29] MEDS: INSUL NPH HU REC/INS RG HU REC 100 UNITS/ML VIAL SC SCH (09:05)
[2018-10-29] MEDS: POLYETHYLENE GLYCOL 3350 17 GM PACKET PO SCH (09:06)
[2018-10-29] MEDS: ESCITALOPRAM OXALATE 10 MG TAB PO SCH (09:06)
[2018-10-29] MEDS: LIDOCAINE 1 PATCH ADH..PATCH TP SCH (09:06)
[2018-10-29] MEDS: METOPROLOL SUCCINATE 25 MG TABLET.SA PO SCH (09:07)
[2018-10-29] MEDS: LISINOPRIL 2.5 MG TABLET PO SCH (09:07)
[2018-10-29] MEDS: POTASSIUM CHLORIDE 40 MEQ/15 ML LIQUID PO SCH (09:07)
[2018-10-29] MEDS ORDERED: FUROSEMIDE 10 MG/ML VIAL IV ONE (09:58)
--- NOTE | 2018-10-29 10:22 | DS ---
(1) Skin ulcers of foot, bilateral Problem: Acute (2) HFrEF (heart failure with reduced ejection fraction) Problem: Chronic (3) Hypokalemia Problem: Resolved (4) UTI (urinary tract infection) Problem: Acute (5) Skin tear Problem: Acute (6) Coronary artery disease Problem: Chronic Qualifiers: Coronary Disease-Associated Artery/Lesion type: unspecified vessel or lesion type [place] vs. transplanted heart: [place] heart Associated angina: without angina Qualified Code(s): I25.10 - Atherosclerotic heart disease of [place] coronary artery without angina pectoris (7) Pacemaker Problem: Chronic (8) Hypertension Problem: Chronic Qualifiers: Hypertension type: essential hypertension Qualified Code(s): I10 - Essential (primary) hypertension (9) Stage III chronic kidney disease Problem: Chronic (10) Pulmonary hypertension Problem: Chronic (11) Ecthyma gangrenosum Problem: Chronic Description of Stay: Patient with extensive PMHx reports going to the ED from a longterm due to leg pain and shortness of breath. She recently was transferred from our facility to [facility] for concern for vascular compromise of her feet. ED physician reported she was having some hematemesis prior to arrival. The hematemesis did not persist, but she was admitted for hypokalemia of 2.4 and pyelonephritis. Her hypokalemia resolved with IV potassium replacement. On my admission exam, she reported having leg pain, which is managed well with 5 mg oxycodone. Her shortness of breath did not persist beyond the ED. She denied any urinary symptoms, including dysuria, frequency, back pain. She has a hopkins catheter in place, as she is incontinent of urine, and has multiple lower extremity wounds. The hopkins remains for skin protection. Her urine culture was positive for ESBL Klebsiella, and bactrim was changed to merrem. She was afebrile, and had no abnormalities of her vitals. Lactate was not elevated, and procalcitonin was 1.23 on 10/28. She has multiple significant lower extremity wounds, which have been present for at least 5 weeks. These did not appear to be infected. Wound care was consulted, who recommended Prizma and mepilex. One of her wounds is on her right heel, which throbs. She has not walked in about a month. Recommend she try walking, to help mobilize fluid. Chart review from [facility] show she had popliteal artery stenosis on the left. Continue following with wound care in [place], and continue their previous management. Echo done during her [facility] hospitalization showed an ejection fraction of 10-15%. With her poor renal function, hospice was discussed with her, but she declined. She is at high risk for further hospitalizations. Procedures Performed: none Results and Findings: Pending Mircobiology Results 10/27/18 11:45 Blood Blood Culture - Preliminary NO GROWTH 24 HOURS 10/27/18 06:15 Blood Blood Culture - Preliminary NO GROWTH 24 HOURS Lab Pending Results 10/27/18 06:10: Procalcitonin 1.08 H 10/27/18 06:15: WBC 16.2 H, RBC 3.36 L, Hgb 11.6 L, Hct 32.3 L, MCV 96.1, MCH 34.5 H, MCHC 35.9, RDW 15.4 H, Plt Count 264, MPV 10.1, Immature Gran % (Auto) 1.20 H, Immature Gran # (Auto) 0.19 H, Neutrophils % 87.7 H, Lymphocytes % 3.1 L, Monocytes % 6.3, Eosinophils % 1.5, Basophils % 0.2, Nucleated RBC % 0.0, Neutrophils # 14.2 H, Lymphocytes # 0.50 L, Monocytes # 1.0, Eosinophils # 0.2, Absolute Basophils 0.0 10/27/18 06:15: Sodium 129 L, Plasma Sodium 130, Potassium 2.4 L* D, Chloride 89 L, Carbon Dioxide 26.5, Anion Gap 15.9 H, BUN 62 H, Creatinine 1.75 H D, Est GFR (Non-Af Amer) 30 L D, BUN/Creatinine Ratio 35.4 H, Random Glucose 142 H, Calcium 8.1, Calcium Adj for Albumin 9.5, Total Bilirubin 0.9, AST 19, ALT 8 L, Alkaline Phosphatase 191 H, Total Protein 6.2, Albumin 1.8 L 10/27/18 06:15: Urine Color Yellow, Urine Appearance Cloudy, Urine pH 6.0, Ur Specific [place] 1.020, Urine Protein 15 H, Urine Glucose (UA) Negative, Urine Ketones Negative, Urine Blood 50 H, Urine Nitrate Positive H, Urine Bilirubin Negative, Prot Sulfosalicylic Acd 1+, Urine Urobilinogen 4 H, Ur Leukocyte Esterase 500 H, Urine RBC >50 H, Urine WBC >50 H, Ur Epithelial Cells 0-5, Urine Bacteria 3+ H, Urine Culture Comments Culture to follow 10/27/18 06:15: Lactic Acid, Venous 1.7 10/27/18 07:12: Stool Occult Blood Negative 10/27/18 14:04: Sodium 128 L, Plasma Sodium 130, Potassium 3.4 D, Chloride 89 L, Carbon Dioxide 24.7, Anion Gap 17.7 H, BUN 62 H, Creatinine 1.94 H, Est GFR (Non-Af Amer) 27 L, BUN/Creatinine Ratio 32.0 H, Random Glucose 228 H D, Calcium 8.4 10/28/18 05:34: WBC 13.1 H, RBC 3.36 L, Hgb 11.5 L, Hct 32.8 L, MCV 97.6, MCH 34.2 H, MCHC 35.1, RDW 15.7 H, Plt Count 287, MPV 9.9, Immature Gran % (Auto) 1.70 H, Immature Gran # (Auto) 0.22 H, Neutrophils % 87.8 H, Lymphocytes % 3.9 L, Monocytes % 6.1, Eosinophils % 0.2, Basophils % 0.3, Nucleated RBC % 0.0, Neutrophils # 11.5 H, Lymphocytes # 0.51 L, Monocytes # 0.8, Eosinophils # 0.0, Absolute Basophils 0.0 10/28/18 05:34: Sodium 128 L, Plasma Sodium 129 L, Potassium 3.9, Chloride 92 L, Carbon Dioxide 22.4 L, Anion Gap 17.5 H, BUN 64 H, Creatinine 1.94 H, Est GFR (Non-Af Amer) 27 L, BUN/Creatinine Ratio 33.0 H, Random Glucose 161 H, Calcium 8.2, Calcium Adj for Albumin 9.7, Total Bilirubin 0.8, AST 18, ALT 7 L, Alkaline Phosphatase 179 H, Total Protein 6.1 L, Albumin 1.7 L 10/28/18 05:34: Procalcitonin 1.24 H Discharge Location: [facility] Disposition: SNF Condition: Fair Level of Care: SNF Discharge Activity: Weight bearing - as tolerated Discharge Diet: General/regular food Fdc Therapy: Physicial Therapy, Occupation Therapy Referrals: Ericka Perkins MD [Primary Care Provider] - One Week Consultation Done:: Wound care Additional Patient Instructions (free text): WBAT to BLE. Prescriptions (Any new or edited meds): Meropenem [Merrem] 1 gm IV Q12H 6 Days #13 vial Complete Home Medications List: Complete Home Medication List: Nitroglycerin [Nitrostat] 0.4 mg SL Q5MIN PRN 06/18/15 Lisinopril [Zestril] 2.5 mg PO DAILY 07/10/17 cholecalciferol (vitamin D3) 2,000 unit capsule 2,000 unit PO DAILY 11/05/17 rivaroxaban 15 mg tablet 15 mg PO QPM #30 tab 01/28/18 pantoprazole 40 mg tablet,delayed release 40 mg PO DAILY #30 tab 07/23/18 Acetaminophen [Tylenol] 500 mg PO Q4H PRN tab 08/16/18 Bisacodyl [Dulcolax] 10 mg PO DAILY PRN tablet. 08/16/18 tiZANidine HCL [Tizanidine HCl] 4 mg PO Q6H PRN #30 tab 08/16/18 levothyroxine 175 mcg tablet 175 mcg PO DAILY #90 tab 08/23/18 gemfibrozil 600 mg tablet 600 mg PO BID #60 tab 08/30/18 Lidocaine [Lidoderm 5%] 1 patch TOPICAL DAILY 09/13/18 furosemide 80 mg tablet 80 mg PO DAILY 09/14/18 Escitalopram Oxalate 5 mg PO DAILY 09/23/18 Insul NPH Hu Rec/Ins Rg Hu Rec [Novolin 70/30] 10 units SQ 0800 09/23/18 Insul NPH Hu Rec/Ins Rg Hu Rec [Novolin 70/30] 15 units SQ 1700 09/23/18 albuterol sulfate HFA 90 mcg/actuation aerosol inhaler 2 puff INHALATION Q4H PRN 09/23/18 nystatin 100,000 unit/gram topical cream 1 applic TP BID PRN 10/11/18 fluticasone propionate 50 mcg/actuation nasal spray,suspension 1 spray ABI DAILY PRN 10/15/18 lidocaine HCl 4 % topical cream 1 applic TP QID PRN 10/15/18 metoprolol succinate ER 25 mg tablet,extended release 24 hr 25 mg PO DAILY 10/15/18 multivitamin tablet 1 tab PO DAILY 10/15/18 simethicone 180 mg capsule 180 mg PO BID PRN 10/15/18 oxycodone 5 mg tablet 5 mg PO Q6H PRN #30 tab 10/21/18 Collagenase Clostridium Hist. [Santyl] 30 gm TOPICAL BID 10/27/18 L. Rhamnosus GG/Inulin [Culturelle Capsule] 1 ea PO DAILY 10/27/18 Lanolin Alcohol/Mo/W.pet/[place] [Eucerin Creme] 57 gm TOPICAL PRN PRN 10/27/18 Mupirocin [Bactroban] 1 appl TOPICAL BID 10/27/18 Ondansetron [Zofran Odt] 4 mg PO Q6H PRN 10/27/18 Polyethylene Glycol 3350 [Gavilax] 17 gm PO DAILY 10/27/18 Meropenem [Merrem] 1 gm IV Q12H 6 Days #13 vial 10/29/18
[2018-10-29 13:22] VITALS: BP 100/56
== END 2018-10-29 13:25 | DRG 690 ==
LOC: ER 05:57 → MS 07:31
PROVIDERS: ADMIT Family Medicine; ATTEND Family Medicine
DX: E87.6 Hypokalemia; I25.10 Atherosclerotic heart disease of native coronary artery without angina pectoris; E11.22 Type 2 diabetes mellitus with diabetic chronic kidney disease; Z79.01 Long term (current) use of anticoagulants; I50.22 Chronic systolic (congestive) heart failure; I27.20 Pulmonary hypertension, unspecified; B96.1 Klebsiella pneumoniae [K. pneumoniae] as the cause of diseases classified elsewhere; L97.512 Non-pressure chronic ulcer of other part of right foot with fat layer exposed; E11.9 Type 2 diabetes mellitus without complications; I50.84 End stage heart failure; I13.0 Hypertensive heart and chronic kidney disease with heart failure and stage 1 through stage 4 chronic kidney disease, or unspecified chronic kidney disease; I48.2 Chronic atrial fibrillation; Z79.4 Long term (current) use of insulin; N10 Acute pyelonephritis; I70.202 Unspecified atherosclerosis of native arteries of extremities, left leg; Z95.0 Presence of cardiac pacemaker; L08.0 Pyoderma; N18.3 Chronic kidney disease, stage 3 (moderate); L97.511 Non-pressure chronic ulcer of other part of right foot limited to breakdown of skin
CPT/HCPCS: 36415; 74019; 74020; 80048; 80053; 81001; 82272; 83605; 84145; 85025; 87040; 87077; 87081; 87086; 87186; 93005; 96361; 96374; 99285; J2405

== ENCOUNTER 2018-11-13 11:00 | Inpatient (IN) ==
[2018-11-13] MEDS ORDERED: NORMAL SALINE 500 ML IV ONE ×3 (11:16→15:07)
[2018-11-13 11:36] LABS: Hematocrit 30.8 % (37.0-47.0); Mean Cell Volume 94.8 fl (78-100); Mean Corpuscular Hemoglobin 33.8 pg (27-31); Mean Corpuscular Hgb Conc 35.7 g/dl (32-36); Mean Platelet Volume 9.3 fl (8-12.5); Neutrophil # 9.3 K/mm3 (1.3-6.0); Neutrophil % 86.6 % (42-75.0); Platelet Count 303 K/mm3 (150-450); Red Blood Count 3.25 M/mm3 (4.2-5.4); Red Cell Distribution Width 14.4 % (11.5-14.0); White Blood Count 10.8 K/mm3 (4.0-10.5)
--- NOTE | 2018-11-13 11:42 | ERNOTE ---
Medical Problem HPI - General Chief Complaint: General Assessment Time Seen by Provider: 11/13/18 11:02 Source: patient, EMS Exam Limitations: no limitations - Immun/Allergies/Home Medications Immunizations: IMMUNIZATION HX Immunizations Up to Date Yes History of Influenza Vaccine Yes Hx Pneumococcal Vaccination Yes Allergies/Adverse Reactions: Allergies Penicillins Allergy (Severe, Verified 11/13/18 11:19) HIVES, THROAT SWELLS indomethacin [From Indocin] Adverse Reaction (Intermediate, Verified 11/13/18 11:19) GI BLEED indomethacin sodium [From Indocin] Adverse Reaction (Intermediate, Verified 11/13/18 11:19) GI BLEED ezetimibe [From Zetia] Adverse Reaction (Mild, Verified 11/13/18 11:19) FEELS TINGLY ALL OVER, SIDE PAIN glipizide [From Glucotrol] Adverse Reaction (Mild, Verified 11/13/18 11:19) HAIR FELL OUT metformin HCl [From Glucophage] Adverse Reaction (Mild, Verified 11/13/18 11:19) JUST DOESNT WORK Mxyefbp-Vpt-Xwa Reductase Inhibitor Adverse Reaction (Mild, Verified 11/13/18 11:19) MUSCLE ACHES levofloxacin [From Levaquin] Adverse Reaction (Verified 11/13/18 11:19) Home Medications: HOME MEDICATIONS Nitroglycerin [Nitrostat] 0.4 mg SL Q5MIN PRN 06/18/15 [Last Taken Unknown] Lisinopril [Zestril] 2.5 mg PO DAILY 07/10/17 [Last Taken 11/25/17] cholecalciferol (vitamin D3) 2,000 unit capsule 2,000 unit PO DAILY 11/05/17 [Last Taken 11/24/17] rivaroxaban 15 mg tablet 15 mg PO QPM #30 tab 01/28/18 [Last Taken Unknown] pantoprazole 40 mg tablet,delayed release 40 mg PO DAILY #30 tab 07/23/18 [Last Taken Unknown] Acetaminophen [Tylenol] 500 mg PO Q4H PRN tab 08/16/18 [Last Taken Unknown] Bisacodyl [Dulcolax] 10 mg PO DAILY PRN tablet. 08/16/18 [Last Taken Unknown] tiZANidine HCL [Tizanidine HCl] 4 mg PO Q6H PRN #30 tab 08/16/18 [Last Taken Unknown] levothyroxine 175 mcg tablet 175 mcg PO DAILY #90 tab 08/23/18 [Last Taken 09/13/18] gemfibrozil 600 mg tablet 600 mg PO BID #60 tab 08/30/18 [Last Taken Unknown] Lidocaine [Lidoderm 5%] 1 patch TOPICAL DAILY 09/13/18 [Last Taken Unknown] furosemide 80 mg tablet 80 mg PO DAILY 09/14/18 [Last Taken Unknown] Escitalopram Oxalate 5 mg PO DAILY 09/23/18 [Last Taken Unknown] Insul NPH Hu Rec/Ins Rg Hu Rec [Novolin 70/30] 5 units SQ 1700 09/23/18 [Last Taken Unknown] Insul NPH Hu Rec/Ins Rg Hu Rec [Novolin 70/30] 10 units SQ 0800 09/23/18 [Last Taken Unknown] albuterol sulfate HFA 90 mcg/actuation aerosol inhaler 2 puff INHALATION Q4H PRN 09/23/18 [Last Taken Unknown] nystatin 100,000 unit/gram topical cream 1 applic TP BID PRN 10/11/18 [Last Taken Unknown] fluticasone propionate 50 mcg/actuation nasal spray,suspension 1 spray ABI DAILY PRN 10/15/18 [Last Taken Unknown] lidocaine HCl 4 % topical cream 1 applic TP QID PRN 10/15/18 [Last Taken Unknown] metoprolol succinate ER 25 mg tablet,extended release 24 hr 25 mg PO DAILY 10/15/18 [Last Taken Unknown] multivitamin tablet 1 tab PO DAILY 10/15/18 [Last Taken Unknown] simethicone 180 mg capsule 180 mg PO BID PRN 10/15/18 [Last Taken Unknown] Collagenase Clostridium Hist. [Santyl] 30 gm TOPICAL BID 10/27/18 [Last Taken Unknown] L. Rhamnosus GG/Inulin [Culturelle Capsule] 1 ea PO DAILY 10/27/18 [Last Taken Unknown] Lanolin Alcohol/Mo/W.pet/[place] [Eucerin Creme] 57 gm TOPICAL PRN PRN 10/27/18 [Last Taken Unknown] Mupirocin [Bactroban] 1 appl TOPICAL BID 10/27/18 [Last Taken Unknown] Ondansetron [Zofran Odt] 4 mg PO Q6H PRN 10/27/18 [Last Taken Unknown] Polyethylene Glycol 3350 [Gavilax] 17 gm PO DAILY 10/27/18 [Last Taken Unknown] oxycodone 5 mg tablet 5 mg PO Q6H PRN #120 tab 11/01/18 [Last Taken Unknown] - History of Present History Narrative: Patient presents from the [facility] because she is been becoming more lethargic, decreased urine output and appears to be having some weight gain. Timing: constant Severity: moderate Review of Systems - Review of Systems Constitutional: Present: See HPI EYE: Present: no symptoms reported ENT: Present: no symptoms reported Respiratory: Present: no symptoms reported Cardiology: Present: edema - Chronic Gastrointestinal/Abdominal: Present: no symptoms reported Genitourinary: Present: no symptoms reported Musculoskeletal: Present: no symptoms reported Skin: Present: no symptoms reported Neurological: Present: no symptoms reported Endocrine: Present: no symptoms reported Hematologic/Lymphatic: Present: no symptoms reported Psych: Present: no symptoms reported Medical History (Updated 11/13/18 @ 13:37 by Alfa Abraham DO) Back pain Onset Date: Unknown Influenza vaccine refused has already received the vaccine for the season. 01/28/18 ARSEN Christianson Atrial fibrillation Onset Date: Unknown CAD (coronary artery disease) Onset Date: Unknown Cardiomyopathy Onset Date: ~2008 Chronic renal failure Onset Date: 09/02/13 Congestive heart failure Onset Date: Unknown Diabetes mellitus type 2, noninsulin dependent Onset Date: Unknown Hyperlipidemia Onset Date: Unknown Hypertension Onset Date: Unknown Hypothyroidism (acquired) Onset Date: Unknown Candidiasis of mouth Onset Date: 10/07/12 Gout Onset Date: Unknown Herpes zoster Onset Date: ~04/2010 History of GI bleed Onset Date: ~2010 History of polymyalgia rheumatica Onset Date: ~2008 Myocardial infarct, old Onset Date: ~1983 x2 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 History of cholecystectomy Onset Date: ~1995 [place]-lap History of dilation and curettage Onset Date: ~1959 had 2 or 3 History of esophagogastroduodenoscopy (EGD) Onset Date: 11/25/17 11/30/14 [place]-moderate chronic gastritis. H.pylor negative. 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 History of eyelid surgery Onset Date: 01/16/16 [facility]-lift History of implantable cardiac defibrillator (ICD) Onset Date: ~2008 2004 with LV lead addition, 2008 ICDgenertor change with lead revision patient reports being on her fourth ICD History of total abdominal hysterectomy and bilateral salpingo-oophorectomy Onset Date: ~03/1995 Dr Lo Pacemaker Onset Date: ~2002 patient stated she doesnt have this anymore because it didnt work for her. Family History: Family History (Last Reviewed 11/13/18 @ 11:19 by Derrick Orr RN) Father , age 80's-stomach cancer Cancer stomach Mother , age 80's-strokes Diabetes Hypertension CVA (cerebral vascular accident) Brother , age 51-larynx cancer w/mets to liver Cancer larynx Sister , age 68-pancreatic ca Cancer pancreatic Daughter Multiple myeloma Daughter Osteosarcoma of pelvic bone Social History: (Last Reviewed 11/13/18 @ 11:19 by Derrick Orr RN) Social History: Marital status: household members: spouse number of children: 2 current occupational status: retired Service: No Tobacco: Smoking Status: Never smoker Alcohol: alcohol intake: former Substance Use: substance use type: does not use Dietary Habits: caffeine: Yes Personal Safety: victim of physical abuse: No victim of emotional abuse: No Physical Exam - Physical Exam General Appearance: Present: wd/wn, alert, mild distress Head Exam: Present: normal inspection, no evidence of injury Eye Exam: Normal inspection: bilateral, PERRL: bilateral Ears, Nose, Throat: Present: normal ENT inspection, H, normal pharynx Neck: Present: normal inspection, nontender Respiratory: Present: no respiratory distress, normal breath sounds, no accessory muscle use, chest nontender, lungs clear Cardiovascular/Chest: Present: regular rate, rhythm, no murmur, normal peripheral pulses Gastrointestinal/Abdominal: Present: normal bowel sounds, nontender, nondistended, soft, no organomegaly Rectal Exam: Present: deferred Back Exam: Present: normal inspection, normal range of motion Extremity Exam: Present: normal inspection, non-tender, normal range of motion, no edema, extremity edema - Chronic both upper and lower extremities Neurological Exam: Present: alert, oriented, normal mood/affect Skin Exam: Present: normal color, warm/dry Lymphatic Exam: Present: no adenopathy Progress - Results and Orders Patient's Lab Results:: I have reviewed the patient's lab results. - Vital Signs Patient's Vital Signs:: I have reviewed the patient's vital signs. Vital Signs: Vital Signs 11/13/18 11:05 Temperature 35.6 C L Pulse Rate 101 H Respiratory Rate 18 Blood Pressure 109/39 O2 Sat by Pulse Oximetry 94 - EKG EKG #1 EKG: other - Paced rhythm EKG read: Reviewed by me - X-Ray X-Ray #1 X-Ray: chest Interpretation: Reviewed by me - Progress/Reassessment Chief Complaint: General Assessment Plan - Plan Plan: Patient appears to be in multisystem organ failure at this point. She is no longer make an albumin and her kidneys are now starting to fail. She also has hyponatremia as well as hypocalcemia and patient is agreed to become not only DNR, but also hospice. Departure Clinical Impression: Hyponatremia, Hypocalcemia, Edema extremities Acute renal failure Qualifiers: Acute renal failure type: unspecified Qualified Code(s): N17.9 - Acute kidney failure, unspecified Hypotension Qualifiers: Hypotension type: other hypotension type Qualified Code(s): I95.89 - Other hypotension - Departure Disposition: Still a patient Condition: Poor
[2018-11-13 11:57] LABS: ALT 6 U/L (19-67); AST 20 U/L (0-48); Albumin * 1.9 gm/dl (3.4-5.0); Alkaline Phosphatase * 191 U/L (50-170); Anion Gap 25.9 mmol/L (6.8-13.8); Bilirubin, Total 0.8 mg/dL (0.0-1.1); Ca. Corrected For Albumin 6.4 mg/dL (8.4-10.2); Carbon Dioxide 13.6 mmol/L (24-32.6); Chloride 85 mmol/L (97-106); Glucose * 117 mg/dL (70-110); Magnesium 1.5 mg/dL (1.2-2.8); Potassium 4.5 mmol/L (3.4-4.6); Total Protein 5.9 gm/dL (6.2-8.2)
[2018-11-13 11:59] LABS: Blood Urea Nitrogen 119 mg/dL (3-23)
[2018-11-13 12:00] LABS: Sodium 120 mmol/L (132-142)
[2018-11-13 12:34] LABS: Urine Bilirubin Negative (NEGATIVE); Urine Blood 50 /ul (NEGATIVE); Urine Ketone Negative (NEGATIVE); Urine Nitrite Negative (NEGATIVE); Urine Protein Negative (NEGATIVE); Urine Specific Gravity >=1.030 SP.GR. (1.005-1.010); Urine Urobilinogen Normal (NORMAL)
[2018-11-13 12:40] LABS: Urine Appearance Slightly Cloudy (CLEAR); Urine Bacteria 1+; Urine Color Dark Yellow; Urine RBC 0-5 /hpf (0-5)
[2018-11-13] MEDS ORDERED: CALCIUM GLUCONATE 4.65 MEQ/10 ML VIAL IV ONE (12:46)
[2018-11-13] MEDS ORDERED: MORPHINE SULFATE 10 MG/0.5 ML SYRINGE PO PRN (14:26)
[2018-11-13] MEDS: LORazepam 2 MG/ML DISP.SYRIN IV PRN ×3 (15:42→22:29)
--- NOTE | 2018-11-13 17:14 | HP ---
Chief Complaint - Chief Complaint Date of Service: 11/13/18 Time of Service: 15:15 Chief Complaint: low blood pressure History of Present Illness: Patient was sent from the [facility] for BP 70's/40's. She has multiple medical problems, including multi-drug resistant chronic lower extremity wounds, heart failure, diabetes, pulmonary hypertension. She has had multiple hospitalizations over the last few months. Here in the ED, she was found to be in renal failure with a GFR of 15, hypoalbuminemia of 1.9, hyponatremia with sodium of 120, with BP down to 71/29. Heart rate has been within normal limits, and respiratory rate has been 8-10. She has declined hospice benefits in the past, but agreed to pursue hospice today. It was explained to her and her family member that she would require fluid for the hypotension and renal failure, but with her albumin that low, the fluid would third space into her tissues. Her family feels like she is tired of being sick. She will stay here overnight, and [facility] hospice will evaluate her tomorrow, likely to go back to the [facility] with hospice benefits. She did not provide much information, simply stating she feels terrible. Medical History (Updated 11/13/18 @ 13:37 by Alfa Abraham DO) Back pain Onset Date: Unknown Influenza vaccine refused has already received the vaccine for the season. 01/28/18 ARSEN Christianson Atrial fibrillation Onset Date: Unknown CAD (coronary artery disease) Onset Date: Unknown Cardiomyopathy Onset Date: ~2008 Chronic renal failure Onset Date: 09/02/13 Congestive heart failure Onset Date: Unknown Diabetes mellitus type 2, noninsulin dependent Onset Date: Unknown Hyperlipidemia Onset Date: Unknown Hypertension Onset Date: Unknown Hypothyroidism (acquired) Onset Date: Unknown Candidiasis of mouth Onset Date: 10/07/12 Gout Onset Date: Unknown Herpes zoster Onset Date: ~04/2010 History of GI bleed Onset Date: ~2010 History of polymyalgia rheumatica Onset Date: ~2008 Myocardial infarct, old Onset Date: ~1983 x2 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 History of cholecystectomy Onset Date: ~1995 Pranayguely-lap History of dilation and curettage Onset Date: ~1959 had 2 or 3 History of esophagogastroduodenoscopy (EGD) Onset Date: 11/25/17 11/30/14 [place]-moderate chronic gastritis. H.pylor negative. 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 History of eyelid surgery Onset Date: 01/16/16 [facility]-lift History of implantable cardiac defibrillator (ICD) Onset Date: ~2008 2004 with LV lead addition, 2008 ICDgenertor change with lead revision patient reports being on her fourth ICD History of total abdominal hysterectomy and bilateral salpingo-oophorectomy Onset Date: ~03/1995 Dr Lo Pacemaker Onset Date: ~2002 patient stated she doesnt have this anymore because it didnt work for her. Family History: Family History (Last Reviewed 11/13/18 @ 11:19 by Derrick Orr RN) Father , age 80's-stomach cancer Cancer stomach Mother , age 80's-strokes Diabetes Hypertension CVA (cerebral vascular accident) Brother , age 51-larynx cancer w/mets to liver Cancer larynx Sister , age 68-pancreatic ca Cancer pancreatic Daughter Multiple myeloma Daughter Osteosarcoma of pelvic bone Social History: (Last Reviewed 11/13/18 @ 11:19 by Derrick Orr RN) Social History: Marital status: household members: spouse number of children: 2 current occupational status: retired Service: No Tobacco: Smoking Status: Never smoker Alcohol: alcohol intake: former Substance Use: substance use type: does not use Dietary Habits: caffeine: Yes Personal Safety: victim of physical abuse: No victim of emotional abuse: No Review Of Systems (GEN) - Review of Systems Additional Comments: Patient did not contribute answers to review of systems questions Immunizations: IMMUNIZATION HX Immunizations Up to Date Yes History of Influenza Vaccine Yes Hx Pneumococcal Vaccination Yes Allergies/Adverse Reactions: Allergies Allergy/AdvReac Type Severity Reaction Status Date / Time Penicillins Allergy Severe HIVES, Verified 11/13/18 11:19 THROAT SWELLS indomethacin [From Indocin] AdvReac Intermediate GI BLEED Verified 11/13/18 11:19 indomethacin sodium AdvReac Intermediate GI BLEED Verified 11/13/18 11:19 [From Indocin] ezetimibe [From Zetia] AdvReac Mild FEELS Verified 11/13/18 11:19 TINGLY ALL OVER, SIDE PAIN glipizide [From Glucotrol] AdvReac Mild HAIR FELL Verified 11/13/18 11:19 OUT metformin HCl AdvReac Mild JUST Verified 11/13/18 11:19 [From Glucophage] DOESNT WORK Pzefuvj-Ubi-Mfa Reductase AdvReac Mild MUSCLE Verified 11/13/18 11:19 Inhibitor ACHES levofloxacin [From Levaquin] AdvReac Verified 11/13/18 11:19 Home Medications: HOME MEDICATIONS Nitroglycerin [Nitrostat] 0.4 mg SL Q5MIN PRN 06/18/15 [Last Taken Unknown] Lisinopril [Zestril] 2.5 mg PO DAILY 07/10/17 [Last Taken 11/25/17] cholecalciferol (vitamin D3) 2,000 unit capsule 2,000 unit PO DAILY 11/05/17 [Last Taken 11/24/17] rivaroxaban 15 mg tablet 15 mg PO QPM #30 tab 01/28/18 [Last Taken Unknown] pantoprazole 40 mg tablet,delayed release 40 mg PO DAILY #30 tab 07/23/18 [Last Taken Unknown] Acetaminophen [Tylenol] 500 mg PO Q4H PRN tab 08/16/18 [Last Taken Unknown] Bisacodyl [Dulcolax] 10 mg PO DAILY PRN tablet. 08/16/18 [Last Taken Unknown] tiZANidine HCL [Tizanidine HCl] 4 mg PO Q6H PRN #30 tab 08/16/18 [Last Taken Unknown] levothyroxine 175 mcg tablet 175 mcg PO DAILY #90 tab 08/23/18 [Last Taken 09/13/18] gemfibrozil 600 mg tablet 600 mg PO BID #60 tab 08/30/18 [Last Taken Unknown] Lidocaine [Lidoderm 5%] 1 patch TOPICAL DAILY 09/13/18 [Last Taken Unknown] furosemide 80 mg tablet 80 mg PO DAILY 09/14/18 [Last Taken Unknown] Escitalopram Oxalate 5 mg PO DAILY 09/23/18 [Last Taken Unknown] Insul NPH Hu Rec/Ins Rg Hu Rec [Novolin 70/30] 5 units SQ 1700 09/23/18 [Last Taken Unknown] Insul NPH Hu Rec/Ins Rg Hu Rec [Novolin 70/30] 10 units SQ 0800 09/23/18 [Last Taken Unknown] albuterol sulfate HFA 90 mcg/actuation aerosol inhaler 2 puff INHALATION Q4H PRN 09/23/18 [Last Taken Unknown] nystatin 100,000 unit/gram topical cream 1 applic TP BID PRN 10/11/18 [Last Taken Unknown] fluticasone propionate 50 mcg/actuation nasal spray,suspension 1 spray ABI DAILY PRN 10/15/18 [Last Taken Unknown] lidocaine HCl 4 % topical cream 1 applic TP QID PRN 10/15/18 [Last Taken Unknown] metoprolol succinate ER 25 mg tablet,extended release 24 hr 25 mg PO DAILY 10/15/18 [Last Taken Unknown] multivitamin tablet 1 tab PO DAILY 10/15/18 [Last Taken Unknown] simethicone 180 mg capsule 180 mg PO BID PRN 10/15/18 [Last Taken Unknown] Collagenase Clostridium Hist. [Santyl] 30 gm TOPICAL BID 10/27/18 [Last Taken Unknown] L. Rhamnosus GG/Inulin [Culturelle Capsule] 1 ea PO DAILY 10/27/18 [Last Taken Unknown] Lanolin Alcohol/Mo/W.pet/[place] [Eucerin Creme] 57 gm TOPICAL PRN PRN 10/27/18 [Last Taken Unknown] Mupirocin [Bactroban] 1 appl TOPICAL BID 10/27/18 [Last Taken Unknown] Ondansetron [Zofran Odt] 4 mg PO Q6H PRN 10/27/18 [Last Taken Unknown] Polyethylene Glycol 3350 [Gavilax] 17 gm PO DAILY 10/27/18 [Last Taken Unknown] oxycodone 5 mg tablet 5 mg PO Q6H PRN #120 tab 11/01/18 [Last Taken Unknown] Exam - Exam Vital Signs: Vital Signs - Last Taken Temp 36.0 C 11/13/18 14:40 Pulse 74 11/13/18 16:54 Resp 12 11/13/18 16:54 BP 111/42 11/13/18 16:54 Pulse Ox 100 11/13/18 14:40 Constitutional: Present: Elderly, Obese Respiratory: Present: lungs clear, no respiratory distress, other - IV access in anterior chest. Wearing nasal canula Cardiovascular/Chest: Present: regular rate, rhythm Abdomen: Present: soft, nontender, obese Extremity: Present: other - 4+ edema of bilateral arms, 2+ edema of bilateral legs Skin Exam: Present: other - bilateral lower legs wrapped in kerlex Eye contact: Present: avoids eye contact Diagnostic Studies: Abnormal Lab Results 11/13/18 11/13/18 11/13/18 Range/Units 11:21 11:21 12:28 WBC 10.8 H (4.0-10.5) K/mm3 RBC 3.25 L (4.2-5.4) M/mm3 Hgb 11.0 L (12.5-16.0) gm/dL Hct 30.8 L (37.0-47.0) % MCH 33.8 H (27-31) pg RDW 14.4 H (11.5-14.0) % Immature Gran % (Auto) 2.60 H (0.001-0.429) % Immature Gran # (Auto) 0.28 H (0.000-0.0310) K/mm3 Neutrophils % 86.6 H (42-75.0) % Lymphocytes % 2.6 L (20-51) % Neutrophils # 9.3 H (1.3-6.0) K/mm3 Lymphocytes # 0.28 L (1.5-3.5) k/mm3 Sodium 120 L (132-142) mmol/L Plasma Sodium 120 L (130-142) mmol/L Chloride 85 L (97-106) mmol/L Carbon Dioxide 13.6 L (24-32.6) mmol/L Anion Gap 25.9 H (6.8-13.8) mmol/L BUN 119 H D (3-23) mg/dL Creatinine 3.22 H D (0.4-1.4) mg/dL Est GFR (Non-Af Amer) 15 L D (60-130) mL/min BUN/Creatinine Ratio 37.0 H (9.0-21.6) Random Glucose 117 H (70-110) mg/dL Calcium Less than 5.0 L D (7.9-10.9) mg/dL Calcium Adj for Albumin 6.4 L (8.4-10.2) mg/dL ALT 6 L (19-67) U/L Alkaline Phosphatase 191 H (50-170) U/L Total Protein 5.9 L (6.2-8.2) gm/dL Albumin 1.9 L (3.4-5.0) gm/dl Urine Blood 50 H (NEGATIVE) /ul Ur Leukocyte Esterase 75 H (NEGATIVE) /ul Urine WBC 5-10 H (0-5) /hpf Urine Bacteria 1+ H (NONE) Laboratory Results WBC 10.8 K/mm3 (4.0-10.5) H 11/13/18 11:21 RBC 3.25 M/mm3 (4.2-5.4) L 11/13/18 11:21 Hgb 11.0 gm/dL (12.5-16.0) L 11/13/18 11:21 Hct 30.8 % (37.0-47.0) L 11/13/18 11:21 MCV 94.8 fl (78-100) 11/13/18 11:21 MCH 33.8 pg (27-31) H 11/13/18 11:21 MCHC 35.7 g/dl (32-36) 11/13/18 11:21 RDW 14.4 % (11.5-14.0) H 11/13/18 11:21 Plt Count 303 K/mm3 (150-450) 11/13/18 11:21 MPV 9.3 fl (8-12.5) 11/13/18 11:21 Immature Gran % (Auto) 2.60 % (0.001-0.429) H 11/13/18 11:21 Immature Gran # (Auto) 0.28 K/mm3 (0.000-0.0310) H 11/13/18 11:21 86.6 % (42-75.0) H 11/13/18 11:21 2.6 % (20-51) L 11/13/18 11:21 6.6 % (0.0-9) 11/13/18 11:21 1.2 % (0.0-3.0) 11/13/18 11:21 0.4 % (0.0-1.0) 11/13/18 11:21 Nucleated RBC % 0.0 k/mm3 (0-1) 11/13/18 11:21 9.3 K/mm3 (1.3-6.0) H 11/13/18 11:21 0.28 k/mm3 (1.5-3.5) L 11/13/18 11:21 0.7 k/mm3 (0.0-1.0) 11/13/18 11:21 0.1 k/mm3 (0.0-0.7) 11/13/18 11:21 Absolute Basophils 0.0 k/mm3 (0.0-0.1) 11/13/18 11:21 Sodium 120 mmol/L (132-142) L 11/13/18 11:21 120 mmol/L (130-142) L 11/13/18 11:21 Potassium 4.5 mmol/L (3.4-4.6) D 11/13/18 11:21 Chloride 85 mmol/L (97-106) L 11/13/18 11:21 Carbon Dioxide 13.6 mmol/L (24-32.6) L 11/13/18 11:21 25.9 mmol/L (6.8-13.8) H 11/13/18 11:21 BUN 119 mg/dL (3-23) H D 11/13/18 11:21 3.22 mg/dL (0.4-1.4) H D 11/13/18 11:21 Est GFR (Non-Af Amer) 15 mL/min (60-130) L D 11/13/18 11:21 37.0 (9.0-21.6) H 11/13/18 11:21 117 mg/dL (70-110) H 11/13/18 11:21 1.7 mmol/L (0.4-2.0) 11/13/18 11:21 Calcium Less than 5.0 mg/dL (7.9-10.9) L D 11/13/18 11:21 Calcium Adj for Albumin 6.4 mg/dL (8.4-10.2) L 11/13/18 11:21 Magnesium 1.5 mg/dL (1.2-2.8) 11/13/18 11:21 0.8 mg/dL (0.0-1.1) 11/13/18 11:21 AST 20 U/L (0-48) 11/13/18 11:21 ALT 6 U/L (19-67) L 11/13/18 11:21 191 U/L (50-170) H 11/13/18 11:21 0.022 ng/mL (0.00-0.10) 11/13/18 11:21 5.9 gm/dL (6.2-8.2) L 11/13/18 11:21 1.9 gm/dl (3.4-5.0) L 11/13/18 11:21 Dark yellow 11/13/18 12:28 Slightly cloudy (CLEAR) 11/13/18 12:28 5.0 pH (5.0-7.0) 11/13/18 12:28 Ur Specific [place] >=1.030 SP.GR. (1.005-1.010) 11/13/18 12:28 Negative mg/dL (NEGATIVE) 11/13/18 12:28 Negative mg/dL (NEGATIVE) 11/13/18 12:28 Negative mg/dL (NEGATIVE) 11/13/18 12:28 50 /ul (NEGATIVE) H 11/13/18 12:28 Negative (NEGATIVE) 11/13/18 12:28 Negative mg/dl (NEGATIVE) 11/13/18 12:28 Normal EU/dl (NORMAL) 11/13/18 12:28 Ur Leukocyte Esterase 75 /ul (NEGATIVE) H 11/13/18 12:28 0-5 /hpf (0-5) 11/13/18 12:28 5-10 /hpf (0-5) H 11/13/18 12:28 Ur Epithelial Cells 0-5 /hpf (0-5) 11/13/18 12:28 1+ (NONE) H 11/13/18 12:28 Culture to follow 11/13/18 12:28 Assessment/Plan - Assessment/Plan (1) Acute renal failure Assessment: Creatinine today of 3.22, GFR of 15. Unable to aggressively hydrate due to her her heart failure with reduced ejection fraction and hypoalbuminemia. She has agreed to pursue hospice benefits. [facility] hospice has been notified, who will speak with her tomorrow. She may return back to the [facility] tomorrow. Will administer prn morphine and alprazolam. Problem: Acute Qualifiers: Acute renal failure type: unspecified Qualified Code(s): N17.9 - Acute kidney failure, unspecified (2) HFrEF (heart failure with reduced ejection fraction) Assessment: Echo done earlier this year at [facility] showed EF of 10-15%. Problem: Chronic (3) Hypoalbuminemia Problem: Acute (4) Hypotension Assessment: BP of 70's/30's. Problem: Acute Qualifiers: Hypotension type: other hypotension type Qualified Code(s): I95.89 - Other hypotension (5) Pulmonary hypertension Problem: Chronic
[2018-11-13] MEDS: MORPHINE SULFATE 10 MG/0.5 ML SYRINGE PO PRN ×2 (18:19→20:55)
[2018-11-14] MEDS: MORPHINE SULFATE 10 MG/0.5 ML SYRINGE PO PRN ×4 (00:38→09:46)
[2018-11-14 06:01] VITALS: BP 96/19
[2018-11-14] MEDS ORDERED: SCOPOLAMINE HYDROBROMIDE 1.5 MG PATC TD SCH (07:15)
[2018-11-14] MEDS: LORazepam 2 MG/ML DISP.SYRIN IV PRN ×2 (07:49→10:36)
--- NOTE | 2018-11-14 13:24 | DS ---
(1) Acute renal failure Problem: Acute Qualifiers: Acute renal failure type: unspecified Qualified Code(s): N17.9 - Acute kidney failure, unspecified (2) HFrEF (heart failure with reduced ejection fraction) Problem: Chronic (3) Hypoalbuminemia Problem: Acute (4) Hypotension Problem: Acute Qualifiers: Hypotension type: other hypotension type Qualified Code(s): I95.89 - Other hypotension (5) Pulmonary hypertension Problem: Chronic Date of Discharge:: 11/13/18 Description of Stay: Patient was sent from the [place] for BP 70's/40's. She has multiple medical problems, including multi-drug resistant chronic lower extremity wounds, heart failure, diabetes, pulmonary hypertension. She has had multiple hospitalizations over the last few months. Here in the ED, she was found to be in renal failure with a GFR of 15, hypoalbuminemia of 1.9, hyponatremia with sodium of 120, with BP down to 71/29. Heart rate has been within normal limits, and respiratory rate has been 8-10. She has declined hospice benefits in the past, but agreed to pursue hospice today. It was explained to her and her family member that she would require fluid for the hypotension and renal failure, but with her albumin that low, the fluid would third space into her tissues. Her family feels like she is tired of being sick. She did not provide much information, simply stating she feels terrible. She was discharged, and readmitted to hospice. Procedures Performed: none Results and Findings: Pending Mircobiology Results 11/13/18 11:36 Blood Blood Culture - Preliminary NO GROWTH 24 HOURS 11/13/18 11:21 Blood Blood Culture - Preliminary NO GROWTH 24 HOURS 11/13/18 12:30 Urine,Catheterized Urine Culture - Preliminary No Growth Lab Pending Results 11/13/18 11:21: WBC 10.8 H, RBC 3.25 L, Hgb 11.0 L, Hct 30.8 L, MCV 94.8, MCH 33.8 H, MCHC 35.7, RDW 14.4 H, Plt Count 303, MPV 9.3, Immature Gran % (Auto) 2.60 H, Immature Gran # (Auto) 0.28 H, Neutrophils % 86.6 H, Lymphocytes % 2.6 L, Monocytes % 6.6, Eosinophils % 1.2, Basophils % 0.4, Nucleated RBC % 0.0, Neutrophils # 9.3 H, Lymphocytes # 0.28 L, Monocytes # 0.7, Eosinophils # 0.1, Absolute Basophils 0.0 11/13/18 11:21: Sodium 120 L, Plasma Sodium 120 L, Potassium 4.5 D, Chloride 85 L, Carbon Dioxide 13.6 L, Anion Gap 25.9 H, BUN 119 H D, Creatinine 3.22 H D, Est GFR (Non-Af Amer) 15 L D, BUN/Creatinine Ratio 37.0 H, Random Glucose 117 H, Calcium Less than 5.0 L D, Calcium Adj for Albumin 6.4 L, Magnesium 1.5, Total Bilirubin 0.8, AST 20, ALT 6 L, Alkaline Phosphatase 191 H, Total Protein 5.9 L, Albumin 1.9 L 11/13/18 11:21: Lactic Acid, Venous 1.7 11/13/18 11:21: Troponin I 0.022 11/13/18 12:28: Urine Color Dark yellow, Urine Appearance Slightly cloudy, Urine pH 5.0, Ur Specific [place] >=1.030, Urine Protein Negative, Urine Glucose (UA) Negative, Urine Ketones Negative, Urine Blood 50 H, Urine Nitrate Negative, Urine Bilirubin Negative, Urine Urobilinogen Normal, Ur Leukocyte Esterase 75 H, Urine RBC 0-5, Urine WBC 5-10 H, Ur Epithelial Cells 0-5, Urine Bacteria 1+ H, Urine Culture Comments Culture to follow Discharge Location: [facility] Disposition: Hospice Medical Facility Condition: Poor Discharge Activity: Activity as tolerated Discharge Diet: Resume usual diet
== END 2018-11-14 11:22 | disposition hospice, home (50) | DRG 291 ==
LOC: ER 11:00 → MS 13:33 → INTOOBSV 13:33 → MS 14:40
PROVIDERS: ADMIT Family Medicine; ATTEND Family Medicine
DX: I50.23 Acute on chronic systolic (congestive) heart failure; E83.51 Hypocalcemia; E88.09 Other disorders of plasma-protein metabolism, not elsewhere classified; N18.6 End stage renal disease; E11.22 Type 2 diabetes mellitus with diabetic chronic kidney disease; Z79.4 Long term (current) use of insulin; I95.9 Hypotension, unspecified; E87.1 Hypo-osmolality and hyponatremia; I27.20 Pulmonary hypertension, unspecified; I13.2 Hypertensive heart and chronic kidney disease with heart failure and with stage 5 chronic kidney disease, or end stage renal disease
CPT/HCPCS: 36415; 71010; 71045; 80053; 81001; 83605; 83735; 84484; 85025; 87040; 87081; 87086; 93005; 96361; 96374; 96375; 96376; 99283; G0378

== ENCOUNTER 2018-11-14 11:22 | Inpatient (IN) ==
[2018-11-14] MEDS: MORPHINE SULFATE 10 MG/0.5 ML SYRINGE PO PRN ×5 (12:19→23:47)
--- NOTE | 2018-11-14 13:25 | HP ---
Chief Complaint - Chief Complaint Date of Service: 11/14/18 Time of Service: 13:24 Chief Complaint: "I feel terrible" History of Present Illness: Patient was sent from the [place] for BP 70's/40's on 11/13. She has multiple medical problems, including multi-drug resistant chronic lower extremity wounds, heart failure, diabetes, pulmonary hypertension. She has had multiple hospitalizations over the last few months. Here in the ED, she was found to be in renal failure with a GFR of 15, hypoalbuminemia of 1.9, hyponatremia with sodium of 120, with BP down to 71/29. Heart rate has been within normal limits, and respiratory rate has been 8-10. She has declined hospice benefits in the past, but agreed to pursue hospice today. It was explained to her and her son in law that she would require fluid for the hypotension and renal failure, but with her albumin that low, the fluid would third space into her tissues. Her family feels like she is tired of being sick. She agreed to pursue hospice benefits. She did not provide much information, simply stating she feels terrible. She was admitted to [facility] hospice today. She will stay here throughout the weekend, as the [place] does not think they will have the medications available to her before Thursday. Family members in the room feel like she seems comfortable and does not require anything further at this time. Medical History (Updated 11/14/18 @ 13:24 by Claudia Camp DO) Back pain Onset Date: Unknown Influenza vaccine refused has already received the vaccine for the season. 01/28/18 ARSEN Christianson Atrial fibrillation Onset Date: Unknown CAD (coronary artery disease) Onset Date: Unknown Cardiomyopathy Onset Date: ~2008 Chronic renal failure Onset Date: 09/02/13 Congestive heart failure Onset Date: Unknown Diabetes mellitus type 2, noninsulin dependent Onset Date: Unknown Hyperlipidemia Onset Date: Unknown Hypertension Onset Date: Unknown Hypothyroidism (acquired) Onset Date: Unknown Candidiasis of mouth Onset Date: 10/07/12 Gout Onset Date: Unknown Herpes zoster Onset Date: ~04/2010 History of GI bleed Onset Date: ~2010 History of polymyalgia rheumatica Onset Date: ~2008 Myocardial infarct, old Onset Date: ~1983 x2 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 History of cholecystectomy Onset Date: ~1995 [place]-lap History of dilation and curettage Onset Date: ~1959 had 2 or 3 History of esophagogastroduodenoscopy (EGD) Onset Date: 11/25/17 11/30/14 [place]-moderate chronic gastritis. H.pylor negative. 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 History of eyelid surgery Onset Date: 01/16/16 [facility]-lift History of implantable cardiac defibrillator (ICD) Onset Date: ~2008 2004 with LV lead addition, 2008 ICDgenertor change with lead revision patient reports being on her fourth ICD History of total abdominal hysterectomy and bilateral salpingo-oophorectomy Onset Date: ~03/1995 Dr Lo Pacemaker Onset Date: ~2002 patient stated she doesnt have this anymore because it didnt work for her. Family History: Family History (Last Reviewed 11/13/18 @ 11:19 by Derrick Orr RN) Father , age 80's-stomach cancer Cancer stomach Mother , age 80's-strokes Diabetes Hypertension CVA (cerebral vascular accident) Brother , age 51-larynx cancer w/mets to liver Cancer larynx Sister , age 68-pancreatic ca Cancer pancreatic Daughter Multiple myeloma Daughter Osteosarcoma of pelvic bone Social History: (Last Reviewed 11/13/18 @ 11:19 by Derrick Orr RN) Social History: Marital status: household members: spouse number of children: 2 current occupational status: retired Service: No Tobacco: Smoking Status: Never smoker Alcohol: alcohol intake: former Substance Use: substance use type: does not use Dietary Habits: caffeine: Yes Personal Safety: victim of physical abuse: No victim of emotional abuse: No Review Of Systems (GEN) - Review of Systems Additional Comments: Unable to obtain ROS from patient due to somnolence Immunizations: IMMUNIZATION HX Immunizations Up to Date Yes History of Influenza Vaccine Yes Hx Pneumococcal Vaccination Yes Allergies/Adverse Reactions: Allergies Allergy/AdvReac Type Severity Reaction Status Date / Time Penicillins Allergy Severe HIVES, Verified 11/13/18 11:19 THROAT SWELLS indomethacin [From Indocin] AdvReac Intermediate GI BLEED Verified 11/13/18 11:19 indomethacin sodium AdvReac Intermediate GI BLEED Verified 11/13/18 11:19 [From Indocin] ezetimibe [From Zetia] AdvReac Mild FEELS Verified 11/13/18 11:19 TINGLY ALL OVER, SIDE PAIN glipizide [From Glucotrol] AdvReac Mild HAIR FELL Verified 11/13/18 11:19 OUT metformin HCl AdvReac Mild JUST Verified 11/13/18 11:19 [From Glucophage] DOESNT WORK [id number] Reductase AdvReac Mild MUSCLE Verified 11/13/18 11:19 Inhibitor ACHES levofloxacin [From Levaquin] AdvReac Verified 11/13/18 11:19 Exam - Exam Constitutional: Present: Obese Respiratory: Present: rhonchi Cardiovascular/Chest: Present: regular rate, rhythm Abdomen: Present: obese Extremity: Present: swelling - 3+ edema of bilateral arms, 2+ edema of bilateral legs. Skin Exam: Present: other - Large eschar of right posterior hand. Bilateral lower extremities wrapped in kerlex Assessment/Plan - Narrative Narrative: Patient admitted to hospice. She is a resident of the [place], but they do not have the available meds there currently. Will keep her here, and reassess on Thursday. Given her presentation, and decreased mentation from yesterday, she may pass at any time. - Assessment/Plan (1) Acute renal failure Problem: Acute Qualifiers: Acute renal failure type: unspecified Qualified Code(s): N17.9 - Acute kidney failure, unspecified (2) Hyponatremia Problem: Resolved (3) Insulin dependent diabetes mellitus Problem: Chronic (4) HFrEF (heart failure with reduced ejection fraction) Problem: Chronic (5) Hypotension Problem: Acute Qualifiers: Hypotension type: other hypotension type Qualified Code(s): I95.89 - Other hypotension (6) Coronary artery disease Problem: Chronic Qualifiers: Coronary Disease-Associated Artery/Lesion type: unspecified vessel or lesion type [place] vs. transplanted heart: [place] heart Associated angina: without angina Qualified Code(s): I25.10 - Atherosclerotic heart disease of [place] coronary artery without angina pectoris (7) Pulmonary hypertension Problem: Chronic
[2018-11-14] MEDS ORDERED: ONDANSETRON HCL/PF 2 MG/ML VIAL IV PRN (15:31)
[2018-11-14] MEDS ORDERED: SCOPOLAMINE HYDROBROMIDE 1.5 MG PATC TD SCH (16:00)
[2018-11-14] MEDS: LORazepam 2 MG/ML DISP.SYRIN IV PRN ×3 (16:06→21:47)
[2018-11-15] MEDS: MORPHINE SULFATE 10 MG/0.5 ML SYRINGE PO PRN ×8 (02:05→22:27)
[2018-11-15] MEDS: LORazepam 2 MG/ML DISP.SYRIN IV PRN ×8 (03:51→23:38)
--- NOTE | 2018-11-15 07:58 | PN ---
Subjective - Date and Time Seen Date: 11/15/18 Time: 07:58 Subjective Narrative: no change from yesterday per son in law. Patient is comfort measures only, with [facility] hospice. Objective Objective Narrative: Declined vitals - comfort measures only - Review of Systems Generalized/Overall Review: Reports: No Symptoms Reported - Exam Constitutional: Present: Obtunded, Obese Respiratory: Present: other - upper airway congestion Skin Exam: Present: other - multiple areas of all extremities with kerlex in place, with mild drainage Assessment/Plan - Problems/Diagnosis (1) Multisystem organ failure Problem: Acute Narrative: Secondary to renal injury, heart failure with reduced ejection fraction, multi- drug resistant organism skin ulcers. BP was 70's/40's the night of admission. She has not regained consciousness since yesterday. Family has opted not to obtain vitals, which is appropriate. She may pass within 24 hours. Continue liquid morphine, liquid alprazolam, and scopolamine patch. (2) Acute renal failure Problem: Acute Qualifiers: Acute renal failure type: unspecified Qualified Code(s): N17.9 - Acute kidney failure, unspecified (3) Insulin dependent diabetes mellitus Problem: Chronic (4) HFrEF (heart failure with reduced ejection fraction) Problem: Chronic (5) Hypotension Problem: Acute Qualifiers: Hypotension type: other hypotension type Qualified Code(s): I95.89 - Other hypotension (6) Coronary artery disease Problem: Chronic Qualifiers: Coronary Disease-Associated Artery/Lesion type: unspecified vessel or lesion type [place] vs. transplanted heart: [place] heart Associated angina: without angina Qualified Code(s): I25.10 - Atherosclerotic heart disease of [place] coronary artery without angina pectoris (7) Pulmonary hypertension Problem: Chronic
[2018-11-16 03:48] VITALS: BP 0/0
--- NOTE | 2018-11-16 16:27 | DS ---
Discharge Summary - Provider Primary Care Provider: Ericka Perkins Admitting Clinician: Claudia Camp - Date and Time Date of : 11/16/18 - Diagnosis/Cause of (1) Multisystem organ failure Problems: Acute (2) Acute renal failure Problems: Acute (3) Insulin dependent diabetes mellitus Problems: Chronic (4) HFrEF (heart failure with reduced ejection fraction) Problems: Chronic (5) Hypotension Problems: Acute (6) Coronary artery disease Problems: Chronic (7) Pulmonary hypertension Problems: Chronic - Summary Details (narrative): Patient was sent from the [place] for BP 70's/40's on 11/13. She has multiple medical problems, including multi-drug resistant chronic lower extremity wounds, heart failure, diabetes, pulmonary hypertension. She has had multiple hospitalizations over the last few months. Here in the ED, she was found to be in renal failure with a GFR of 15, hypoalbuminemia of 1.9, hyponatremia with sodium of 120, with BP down to 71/29. Heart rate has been within normal limits, and respiratory rate has been 8-10. She has declined hospice benefits in the past, but agreed to pursue hospice this admission. It was explained to her and her son in law that she would require fluid for the hypotension and renal failure, but with her albumin that low, the fluid would third space into her tissues. Her family feels like she is tired of being sick. She agreed to pursue hospice benefits. She did not provide much information, simply stating she feels terrible. She was admitted to [facility] hospice. She fell into unconsciousness the day after admission, and did not regain unconsciousness. She passed during the film coater hours of 11/16/18. Procedures Performed: none - Additional Data Family: at bedside Practitioner(Attending/PCP) notified: Yes Was code activated: No Autopsy requested: No Hospice patient: Yes
== END 2018-11-16 01:35 | disposition expired | DRG 292 ==
LOC: MS 11:22
PROVIDERS: ADMIT Family Medicine; ATTEND Family Medicine